=== PATIENT | male | born 1945 | race Caucasian/White ===

== ENCOUNTER 2019-12-12 14:15 | Outpatient (CLI) | payer OTHER, SELFPAY ==
--- NOTE | ~2019-12-12 | XR_ITS ---
XR chest 2V DATE: 12/12/2019 14:47 INDICATION: Abnormal weight loss TECHNIQUE: PA and lateral views COMPARISON: 03/23/2013 PA and lateral chest FINDINGS: Normal heart size. Mild aortic unfolding. No hilar or mediastinal enlargement. Mild bilateral apical capping. No pulmonary infiltrate or consolidation, pleural effusion or pulmonar y vascular congestion or pneumothorax. Diffuse idiopathic skeletal hyperostosis of the thoracic spine. IMPRESSION: No active cardiopulmonary disease Reviewed, dictated and finalized at location A.
== END 2019-12-12 14:16 | disposition home or self-care (01) ==
PROVIDERS: PCP Internal Medicine; Visit Provider Internal Medicine
DX: R63.4 Abnormal weight loss (principal)
CPT/HCPCS: 71046

== ENCOUNTER → 2020-10-31 01:04 | Outpatient (CLI) | payer OTHER, SELFPAY ==
[2020-10-31 20:53] LABS: SARS-CoV-2 RNA PCR Negative
== END ==
PROVIDERS: PCP Internal Medicine; Visit Provider Internal Medicine Gastroenterology
DX: Z01.812 Encounter for preprocedural laboratory examination (principal); Z20.822 Contact with and (suspected) exposure to COVID-19
CPT/HCPCS: C9803; U0003; U0005

== ENCOUNTER 2020-11-03 02:46 | Day surgery (SDC) | payer OTHER, SELFPAY ==
[2020-10-26 13:51] VITALS: BMI 24.0
[2020-11-03 09:16] VITALS: BP 144/80; PULSE 72; RESP 18; TEMP 36.9; O2SAT 99
[2020-11-03] MEDS: LACTATED RINGERS 1,000 ML 150 ML IV CONT (09:35)
--- NOTE | 2020-11-03 09:52 | WPDANESEPPF ---
Anes - Initial Pre Proc Eval Procedure: Operation Date: 11/03/20 10:15 Proposed Procedures p Screening Colonoscopy - Josesito Quigley MD Date/Time: 11/03/20 09:52 Surgeon: Josesito Quigley MD Pre Op Diagnosis: Hx of colon polyps Patient Data Age: 75 Gender: M Height: 5 ft 11 in Weight: 78 kg Last Vital Signs Temp 98.5 F 11/03/20 09:16 Pulse 72 11/03/20 09:16 Resp 18 11/03/20 09:16 BP 144/80 H 11/03/20 09:16 Pulse Ox 99 11/03/20 09:16 Allergies Allergy/AdvReac Type Severity Reaction Status Date / Time No Known Allergies Allergy Verified 11/03/20 09:15 Home Medications Medication Instructions Recorded Confirmed Type sitagliptin 50 mg tablet 50 mg PO DAILY #30 tablet 01/08/20 10/26/20 Rx sertraline 100 mg tablet 100 mg PO DAILY tablet 02/04/20 10/26/20 History irbesartan 150 mg tablet 150 mg PO DAILY #90 tablet 07/13/20 10/26/20 Rx blood sugar diagnostic #50 ea 08/06/20 09/10/20 Rx blood-glucose meter #1 ea 08/06/20 09/10/20 Rx lancets 30 gauge #100 ea 08/07/20 09/10/20 Rx fluticasone propionate 50 2 spray NASAL DAILY 09/10/20 10/26/20 History mcg/actuation nasal spray,suspension mupirocin 2 % topical ointment 1 applic TOPICAL TID #22 g 09/10/20 10/26/20 Rx sod picosulf 10 mg-magnes 3.5 160 ml PO BID #160 ml 09/24/20 Rx gram-citric 12 gram/160 mL oral solution warfarin 4 mg tablet See Rx Instructions .ROUTE 11/02/20 Rx .COMPLEX #44 tablet Patient hx anesthesia problems: none Family hx anesthesia problems: none PMFSH Past Medical History Medical History Allergies Anxiety Arthritis Depression Diabetes HTN (hypertension) Hx of blood clots Presence of vena cava filter Implanted on 11/23/2011. Surgical History Surgical History H/O decompression of ulnar nerve Family History Family History Sibling Patient's sister is in good health Father Cerebrovascular accident Family history of throat cancer Patient's father is Mother Patient's mother is Acute myocardial infarction Social History Social History Smoking status: Former smoker Smoking end date: 12/15/1965 Alcohol intake: never Living arrangements: with family Gender identity (if verbalized by the patient): Male Spiritual care concerns: No Anes - Eval Final PreProcedure Day of Procedure 11/03/20 09:52 Patient weight: normal Heart: regular rate and rhythm Airway: Mallampati scale class II Neurological: alert and oriented Last oral intake: >/= 8 hours ASA classification: III Emergent: no Anesthetic plan: proceed Anesthesia type and monitoring: general GIVS and standard monitoring Informed Consent: The patient's anesthetic plan and its attendant risks and benefits were discussed with the patient/family/POA. Questions were solicited and answers provided to the satisfaction of the patient/family/POA.
--- NOTE | 2020-11-03 10:04 | PM.HPGS ---
History of Present Illness History of Present Illness Consent: Risks, benefits, and alternatives have been discussed and questions answered. Patient agrees to proceed with procedure. Chief complaint: Hx of colon polyps Narrative: Shimon Patterson is a 75 year old male with colon polyp in 2012 Review of Systems Constitutional: Constitutional: Denies headache(s) and Denies weakness Eyes: Eyes: Denies blurry vision ENT: Reports Normal hearing present, Denies headache(s) and Denies neck pain Cardiovascular: Cardiovascular: Denies chest pain and Denies dyspnea Respiratory: Respiratory: Denies dyspnea Gastrointestinal: Gastrointestinal: Reports no additional gastrointestinal complaints Genitourinary: Genitourinary: Denies dysuria Musculoskeletal: Musculoskeletal: Denies neck pain Integumentary/Breasts: Skin/Breast: Denies dry skin Neurologic: Reports Normal hearing present, Denies headache(s) and Denies weakness Psychiatric: Psychiatric: Denies anxiety Endocrine: Endocrine: Denies change in body appearance Hematologic/Lymphatic: Hematologic/Lymphatic: Denies easy bleeding Allergic/Immunologic: Allergic/Immunologic: Denies urticaria PMFSH Past Medical History Medical History Allergies Anxiety Arthritis Depression Diabetes HTN (hypertension) Hx of blood clots Presence of vena cava filter Implanted on 11/23/2011. Surgical History Surgical History H/O decompression of ulnar nerve Family History Family History Sibling Patient's sister is in good health Father Cerebrovascular accident Family history of throat cancer Patient's father is Mother Patient's mother is Acute myocardial infarction Social History Social History Smoking status: Former smoker Smoking end date: 12/15/1965 Alcohol intake: never Living arrangements: with family Gender identity (if verbalized by the patient): Male Spiritual care concerns: No Meds Home Medications and Allergies Home Medications Medication Instructions Recorded Confirmed Type sitagliptin 50 mg tablet 50 mg PO DAILY #30 tablet 01/08/20 10/26/20 Rx sertraline 100 mg tablet 100 mg PO DAILY tablet 02/04/20 10/26/20 History irbesartan 150 mg tablet 150 mg PO DAILY #90 tablet 07/13/20 10/26/20 Rx blood sugar diagnostic #50 ea 08/06/20 09/10/20 Rx blood-glucose meter #1 ea 08/06/20 09/10/20 Rx lancets 30 gauge #100 ea 08/07/20 09/10/20 Rx fluticasone propionate 50 2 spray NASAL DAILY 09/10/20 10/26/20 History mcg/actuation nasal spray,suspension mupirocin 2 % topical ointment 1 applic TOPICAL TID #22 g 09/10/20 10/26/20 Rx sod picosulf 10 mg-magnes 3.5 160 ml PO BID #160 ml 09/24/20 Rx gram-citric 12 gram/160 mL oral solution warfarin 4 mg tablet See Rx Instructions .ROUTE 11/02/20 Rx .COMPLEX #44 tablet Allergies Allergy/AdvReac Type Severity Reaction Status Date / Time No Known Allergies Allergy Verified 11/03/20 09:15 Vital Signs Vital Signs - 24 hr 11/03/20 09:16 Temperature 98.5 F Pulse Rate 72 Respiratory Rate 18 Blood Pressure 144/80 H Pulse Oximetry 99 Exam Const: General: comfortable and no acute distress HENMT: General nose exam: Normal nares present Eyes: General: appearance normal, both eyes and all related structures Neck: Neck: no JVD Resp: Auscultation: clear to auscultation bilaterally Cardio: Rate: regular rate Rhythm: regular rhythm GI: Inspection: non-distended GI Palp: Yes Soft to palpation Skin: General skin exam: normal color Neuro: General: gait normal Speech: normal speech Extrem: General: normal to inspection Psych: Mental Status: mental status grossly normal Assessment and Plan Assessment
[2020-11-03 10:06] LABS: Glucose Point of Care 89 (65-105)
[2020-11-03 10:26] VITALS: BP 110/58; PULSE 61; RESP 21; O2SAT 100
[2020-11-03 10:36] VITALS: BP 115/59; PULSE 58; RESP 18; O2SAT 100
[2020-11-03 10:46] VITALS: BP 130/64; PULSE 58; RESP 21; O2SAT 100
== END 2020-11-03 10:50 | disposition home or self-care (01) ==
PROVIDERS: PCP Internal Medicine; Visit Provider Internal Medicine Gastroenterology
PROC: 0DJD8ZZ Inspection of Lower Intestinal Tract, Via Natural or Artificial Opening Endoscopic (ICD-10-PCS; CPT 45378; principal; 2020-11-03 10:15)
DX: Z12.11 Encounter for screening for malignant neoplasm of colon (principal); D12.0 Benign neoplasm of cecum; K64.8 Other hemorrhoids; K57.30 Diverticulosis of large intestine without perforation or abscess without bleeding; I10 Essential (primary) hypertension; E11.9 Type 2 diabetes mellitus without complications; M19.90 Unspecified osteoarthritis, unspecified site; F41.9 Anxiety disorder, unspecified; F32.9 Major depressive disorder, single episode, unspecified; Z86.718 Personal history of other venous thrombosis and embolism; Z86.010 Personal history of colon polyps; Z79.01 Long term (current) use of anticoagulants
CPT/HCPCS: 45385; 82948; 88305; C9803; J2704; J7120; U0003; U0005

== ENCOUNTER 2020-11-20 09:50 | Observation (INO) | payer OTHER, SELFPAY ==
[2020-11-20] VITALS (37 sets, daily range): BP systolic 145–171; BP diastolic 70–105; PULSE 51–82; RESP 9–25; TEMP 36.1–36.6; O2SAT 96–100; BMI 22.6
--- NOTE | ~2020-11-20 | XR_ITS ---
XR chest 2V DATE: 11/20/2020 10:46 INDICATION: Chest pain TECHNIQUE: AP and lateral views COMPARISON: 12/12/2019 2 view chest FINDINGS: Heart size is within normal limits. No hilar or mediastinal enlargement. No pulmonary infil trate or consolidation, pleural effusion or pulmonary vascular congestion or pneumothorax. Degenerative spurring of the thoracic spine. Osteopenia. IMPRESSION: No active cardiopulmonary disease Reviewed, dictated and finalized at location A.
--- NOTE | ~2020-11-20 | CT_ITS ---
EXAMINATION: CTA chest PE protocol DATE: 11/20/2020 12:33 INDICATION: Shortness of breath. Chest pain. TECHNIQUE: Computed tomography angiography (CTA) of the chest was performed with 100 mL Omnipaque-350 intravenous contrast timed to evaluate the pulmonary arteries. Coronal maximum intensity projection 3D-reconstructions were created by the technologist. Automated exposure control and iterative reconst ruction technique were employed. The dose-length product was 333.99 mGy-cm. COMPARISON: None. FINDINGS: There is mild scarring at the lung apices. There is mild atelectasis bilaterally. There are subpleural bands in the lower lobes. There is a 5 mm nodule in right upper lobe. There is a 4 mm nod ule in left upper lobe. There is a 14 mm groundglass opacity in left upper lobe. These findings are l ikely benign. A calcified left lung nodule and calcified left hilar lymph nodes are consistent with o ld granulomatous disease. No pleural effusion. There is no pulmonary embolus. There is ectasia of asc ending aorta measuring 4.1 cm. There are bridging endplate osteophytes at multiple levels in the spin e, consistent with diffuse idiopathic skeletal hyperostosis (DISH). IMPRESSION: 1. No pulmonary embolus. Reviewed, dictated and finalized at location B. IMPRESSION: 1. No pulmonary embolus.
--- NOTE | 2020-11-20 10:04 | ECG_ITS ---
Measurements Intervals [place] Rate: 65 P: 79 MD: 181 QRS: -31 QRSD: 94 T: 60 QT: 409 QTc: 427 Interpretive Statements SINUS RHYTHM WITH SINUS ARRHYTHMIA LEFT AXIS DEVIATION BASELINE WANDER- V3 BORDERLINE ECG Electronically Signed On 11-20-2020 17:13:38 CDT by Shamir Meza D.O.
--- NOTE | 2020-11-20 10:14 | PC.NURSE ---
Called Lab and spoke with Marilu. Added on a PTINRPTT At 1014
[2020-11-20 10:15] LABS: Basophils Percent Auto 0.2 % (0.2-1.2); Eosinophils Absolute Auto 0.1 K/mm3 (0-0.3); Eosinophils Percent Auto 0.7 % (0-4.4); Hematocrit 40.8 % (42.0-52.0); Hemoglobin 13.5 g/dL (14.0-18.0); Immature Granulocyte Absolute 0.02 K/mm3 (0.00-0.031); Immature Granulocyte Percent A 0.2 % (0-0.5); Lymphocytes Absolute Auto 3.49 K/mm3 (0.9-3.2); Lymphocytes Percent Auto 36.9 % (18.3-44.2); Mean Corpuscular HGB Conc 33.1 g/dl (32-36); Mean Corpuscular Hemoglobin 30.2 pg (26-34); Mean Corpuscular Volume 91.3 fl (80-100); Mean Platelet Volume 9.5 fl (7.4-10.4); Monocytes Absolute Auto 0.5 K/mm3 (0.1-0.6); Monocytes Percent Auto 5.6 % (2.6-8.5); Neutrophils Absolute Auto 5.3 K/mm3 (1.3-6.7); Neutrophils Percent Auto 56.4 % (45.5-73.1); Platelet Count Result 199 k/mm3 (150-375); Red Blood Count 4.47 M/mm3 (4.6-6.20); Red Cell Distribution Width 13.5 % (11.5-14.5); White Blood Count 9.5 K/mm3 (4.5-10.0)
[2020-11-20 10:24] LABS: Alanine Aminotransferase 15 U/L (4-50); Albumin Level 4.1 g/dL (3.5-5.1); Alkaline Phosphatase 76 U/L (38-126); Anion Gap 5 mmol/L (8-16); Aspartate Amino Transferase 30 U/L (17-59); Bilirubin,Total 0.8 mg/dL (0.2-1.3); Blood Urea Nitrogen 17 mg/dL (9-20); Calcium 9.4 mg/dL (8.4-10.2); Carbon Dioxide 27 mmol/L (22-30); Chloride 106 mmol/L (98-107); Estimated CRCL calculation 64 ml/min; Estimated Glomerular Filt Rate > 60; Glucose 124 mg/dL (75-110); Potassium 4.2 mmol/L (3.4-5.0); Prothrombin Time 23.3 Seconds (11.1-14.7); Sodium 138 mmol/L (137-145)
[2020-11-20 10:25] LABS: Partial Thromboplastin Time 38.8 SECONDS (22.3-36.8)
[2020-11-20 10:36] LABS: Troponin I < 0.012 ng/mL (0.000-0.034)
--- NOTE | 2020-11-20 10:45 | ED.CHESTPAIN ---
HPI - Chest Pain General Chief Complaint: Chest Pain Stated Complaint: chest pain Time Seen by Provider: 11/20/20 10:03 Source: patient Mode of arrival: ambulatory Limitations: no limitations History of Present Illness HPI narrative: Patient is a 75 year old male who presents with complaints of chest pain and shortness of breath. He reports sudden onset of chest pain starting last pm. He reports pain of 8/10. He reports pain is a constant pressure. He reports onset of shortness of breath with chest pain. Patient has a history of IVC filter placed after a history of PE. He reports taking warfarin daily. Patient's reports that patient has recently been noncompliant with all medications. Patient reports he does not see medical administrative and all medications are refilled by his PCP, Dr. Herman. Patient is a poor historian and appears uncomfortable at this time. MD complaint: chest pain Pertinent past history: other (IVC filter and PE) Related Data Home Medications Medication Instructions Recorded Confirmed sertraline 100 mg tablet 100 mg PO DAILY tablet 02/04/20 10/26/20 fluticasone propionate 50 2 spray NASAL DAILY 09/10/20 10/26/20 mcg/actuation nasal spray,suspension Allergies Allergy/AdvReac Type Severity Reaction Status Date / Time No Known Allergies Allergy Verified 11/03/20 09:15 Review of Systems Review of Systems: Narrative: CONSTITUTIONAL: Denies fever, chills, or sweats. EYES: Denies visual changes, redness, or discharge. ENT: Denies rhinorrhea, congestion, sore throat, or otalgia. CARDIOVASCULAR: Reports chest pain, denies palpitations or edema. RESPIRATORY: Reports dyspnea. GASTROINTESTINAL: Denies abdominal pain, nausea, vomiting, or diarrhea. GENITOURINARY: Denies dysuria or hematuria. SKIN: Denies rash or itching. MUSCULOSKELETAL: Denies back pain, joint pain, or myalgia. NEUROLOGIC: Denies headache, numbness, dizziness, or weakness. PSYCHIATRIC: Denies anxiety or depression. [facility]LY [facility] Past Medical History Medical History Allergies Anxiety Arthritis Depression Diabetes HTN (hypertension) Hx of blood clots Presence of vena cava filter Implanted on 11/23/2011. Surgical History Surgical History H/O decompression of ulnar nerve Family History Family History Sibling Patient's sister is in good health Father Cerebrovascular accident Family history of throat cancer Patient's father is Mother Patient's mother is Acute myocardial infarction Social History Social History Smoking status: Former smoker Smoking end date: 12/15/1965 Alcohol intake: never Gender identity (if verbalized by the patient): Male Spiritual care concerns: No Exam Narrative: Exam Narrative: GENERAL: Well-appearing, well-nourished, and in no acute distress. HEAD: Normocephalic, atraumatic. EYES: EOMI. No redness or drainage. Conjunctiva are normal. ENT: Mucous membranes pink and moist. Throat normal. Uvula midline. NECK: AROM. Supple. No lymphadenopathy. CHEST: No respiratory distress. Clear to auscultation. HEART: Regular rate and rhythm. No murmur appreciated. Normal peripheral pulses. GI: Soft, nontender without rebound, or guarding. No distention. Bowel sounds normal in all quadrants. MUSCULOSKELETAL: No bony tenderness. EXTREMITIES: Normal range of motion. No edema. SKIN: Warm, dry, no rash. NEURO: No focal deficits. Alert and oriented x3. Gait steady. PSYCH: Normal affect. No signs of depression or anxiety. Course Course Emergency Course: Spoke with Merline Brooks. Patient to be admitted at this time for further evaluation of chest pain. Patient agrees with plan of care. Dr. Cid aware of admission. Vital Signs Vital signs
[2020-11-20 12:18] LABS: Add Urine Microscopic? NO; Appearance Urine Clear (Clear); Bilirubin Urine Negative (Negative); Blood Urine Negative (Negative); Color Urine Yellow (Yellow); Glucose Urine UA Negative (Negative); Ketones Urine Negative (Negative); Leukocyte Esterase Ur Negative LEU/UL (Negative); Nitrate Urine Negative (Negative); Protein Urine Negative (Negative); Specific Grav Ur 1.011 (1.001-1.035); Urobilinogen Urine Negative mg/dL (<2.0)
[2020-11-20 13:46] LABS: Troponin I < 0.012 ng/mL (0.000-0.034)
[2020-11-20 16:50] LABS: Troponin I < 0.012 ng/mL (0.000-0.034)
--- NOTE | 2020-11-20 17:30 | PM.IMHP ---
H&P: HPI History of Present Illness Date/Time: 11/20/20 17:30 Chief Complaint: Chest pain. 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 He slept poorly last night due to intermittent midsternal chest heaviness. There were periods of time where he was able to drift off to sleep however he was wakened to the discomfort quite frequently. He is also feeling a bit short of breath as well. He has also been feeling a bit nauseated for the past day and half or so and he has not had a good appetite due to such. He will occasionally get heartburn but has not noticed it being any worse recently and in fact he rarely has symptoms of such. He was still having intermittent chest pain and some shortness of breath this morning and thus he came in for evaluation. Initial EKG showed no acute ST segment changes and his troponins have thus far been negative. Chest CTA did not demonstrate any evidence of pulmonary embolism or other significant findings. He has no history of peptic ulcers. No orthopnea, PND, or lower extremity edema. He has not had any episodes of emesis. No sweats. Review of Systems Review of Systems: Narrative: Twelve systems were reviewed with pertinent positives and negatives as per HPI. No fever, chills, or sweats. He has noticed some hair loss but not in significant quantities. He has lost 30 to 40 pounds over the last 2 to 3 years unintentionally. His voice is hoarse and he has had direct visualization of his vocal cords by an ENT for evaluation of such and was told that his cords maybe mildly edematous but no lesions were noted. He has no known history of malignancy. He has not noticed blood in his stool. Occasional abdominal bloating but nothing significant. He does not take anything daily for heartburn as he only gets that rarely. No dysphagia or concerns for aspiration. He denies exertional chest pain and pleuritic pain. No cough. He is fully vaccinated for COVID-19. No recent illness or sick contacts. He does have BPH and occasional issues with urinary incontinence as well as fecal incontinence. This is been ongoing for quite some time and is not new. He has neuropathy from his diabetes. Diabetes is well controlled. No blurry vision, polydipsia, or polyuria. No back pain or history of back injury. Denies saddle anesthesia. Except as documented, all other systems were reviewed and are negative. [facility] Past Medical History Medical History (Updated 11/20/20 @ 21:58 by Cecilia Aguilar PA-C) Allergies Anxiety Arthritis Benign prostatic hyperplasia Chronic anticoagulation Depression Remote history of suicide attempt. Previously treated with ECT. Gastroesophageal reflux disease without esophagitis History of colon polyps History of deep vein thrombosis (DVT) of lower extremity History of pulmonary embolism Hypertension Type 2 diabetes mellitus with diabetic polyneuropathy, without long-term current use of insulin Surgical History Surgical History (Updated 11/20/20 @ 21:49 by Cecilia Aguilar PA-C) History of decompression of ulnar nerve Presence of vena cava filter Implanted on 11/23/2011. Family History Family History Sibling Patient's sister is in good health Father Cerebrovascular accident Family history of throat cancer Patient's father is Mother Patient's mother is Acute myocardial infarction Social History Social History (Updated 11/20/20 @ 21:52 by Cecilia Aguilar PA-C) Social History: Code status: Full code. He designates his as his surrogate decision maker. Smoking status: Former smoker Smoking end tigre
--- NOTE | 2020-11-20 18:50 | ADMGEN ---
This patient, Shimon Patterson, was admitted to IMU Room 203-01 at 1850. Patient/family oriented to hospital policies and general routines including ID bracelet, bed and alarms, visiting hours, pain management, procedures, bathroom and other care routines, personal items, smoking policy, room service/diet, and visiting hours. Information on how to activate the Rapid Response Team has been discussed. Patient/Family are encouraged to report perceived risks to care and to ask questions if they do not understand what they are told or what they should do.
[2020-11-20 20:41] LABS: Glucose Point of Care 154 (65-105)
[2020-11-20] MEDS: SERTRALINE HCL 50 MG TABLET 100 MG PO (22:46)
[2020-11-21] VITALS (9 sets, daily range): BP systolic 137–151; BP diastolic 76–78; PULSE 55–79; RESP 16–18; TEMP 36–36.6; O2SAT 97–100
[2020-11-21 02:43] LABS: INR 2.3; Prothrombin Time 25.7 Seconds (11.1-14.7)
[2020-11-21 05:54] LABS: Hemoglobin 12.5 g/dL (14.0-18.0); Mean Corpuscular HGB Conc 33.8 g/dl (32-36); Mean Corpuscular Hemoglobin 30.1 pg (26-34); Mean Corpuscular Volume 89.2 fl (80-100); Mean Platelet Volume 9.8 fl (7.4-10.4); Platelet Count Result 191 k/mm3 (150-375); Red Blood Count 4.15 M/mm3 (4.6-6.20); Red Cell Distribution Width 13.3 % (11.5-14.5); White Blood Count 7.5 K/mm3 (4.5-10.0)
[2020-11-21 06:06] LABS: Alanine Aminotransferase 12 U/L (4-50); Albumin Level 3.6 g/dL (3.5-5.1); Alkaline Phosphatase 67 U/L (38-126); Anion Gap 6 mmol/L (8-16); Aspartate Amino Transferase 24 U/L (17-59); Bilirubin,Total 0.7 mg/dL (0.2-1.3); Blood Urea Nitrogen 15 mg/dL (9-20); Calcium 9.3 mg/dL (8.4-10.2); Carbon Dioxide 27 mmol/L (22-30); Chloride 106 mmol/L (98-107); Estimated CRCL calculation 63 ml/min; Estimated Glomerular Filt Rate > 60; Glucose 87 mg/dL (75-110); Lipase 32 U/L (23-300); Potassium 3.7 mmol/L (3.4-5.0); Sodium 139 mmol/L (137-145)
[2020-11-21 06:32] LABS: Hemoglobin A1C 5.9 % (<5.7)
[2020-11-21 07:35] LABS: Free T4 Free Thyroxine Reflex 1.06 ng/dL (0.78-2.19)
[2020-11-21 08:37] LABS: Total Triiodothyronine (T3) 0.99 NG/ML (0.97-1.69)
[2020-11-21 09:01] LABS: Glucose Point of Care 88 (65-105)
[2020-11-21] MEDS: IRBESARTAN 150 MG TABLET PO (09:48)
[2020-11-21] MEDS: PANTOPRAZOLE 40 MG TABLET PO (09:48)
[2020-11-21] MEDS: SERTRALINE HCL 50 MG TABLET PO (09:48)
--- NOTE | 2020-11-21 10:51 | PM.DS ---
DS: Admitting Diagnosis Admitting Diagnosis Admitting Diagnosis: Chest pain DS: Discharge Diagnosis Discharge Diagnosis (1) Chest pain: Code(s): R07.9 - Chest pain, unspecified Status: Acute (2) Type 2 diabetes mellitus with diabetic polyneuropathy, without long-term current use of insulin: Code(s): E11.42 - Type 2 diabetes mellitus with diabetic polyneuropathy Status: Acute (3) Gastroesophageal reflux disease without esophagitis: Code(s): K21.9 - Gastro-esophageal reflux disease without esophagitis Status: Acute (4) History of deep vein thrombosis (DVT) of lower extremity: Code(s): Z86.718 - Personal history of other venous thrombosis and embolism Status: Acute (5) Hypertension: Code(s): I10 - Essential (primary) hypertension Status: Acute (6) Presence of vena cava filter: Code(s): Z95.828 - Presence of other vascular implants and grafts Status: Acute (7) Chronic anticoagulation: Code(s): Z79.01 - long term (current) use of anticoagulants Status: Acute (8) Rash: Code(s): R21 - Rash and other nonspecific skin eruption Status: Acute (9) Depression: Code(s): F32.9 - Major depressive disorder, single episode, unspecified Status: Acute (10) HTN, goal below 140/80: Code(s): I10 - Essential (primary) hypertension Status: Acute (11) Mild anemia: Code(s): D64.9 - Anemia, unspecified Status: Acute (12) Rosacea: Code(s): L71.9 - Rosacea, unspecified Status: Acute DS: Summary Hospital Course Reason for hospitalization: Chest pain Hospital Course: Admitted with chest pressure precordial moderate. Worse while lying down. Correlates at with taking sertraline at night. Although he has been taking it for a long time and does not happen with every dose. States he takes medication as directed but significant other contradicts that. His telemetry was unremarkable overnight. EKG showed no ischemic changes. Troponin I was undetectable Leslie low x3. CTA chest was negative for pulmonary emboli masses pericardial effusion or infiltrates. Time Spent with Patient Time attestation: Total time spent providing and/or coordinating discharge services: 35 minutes Exam Narrative: Exam Narrative: HEENT: EOMI, PERRL, sclerae nonicteric, pharyngeal mucosa pink and intact, voice hoarse NECK: No JVD, adenopathy, or thyromegaly CHEST: Clear to auscultation. Normal effort. HEART: NL S1/S2, regular, no murmur ABDOMEN: BS+, soft, nontender, no mass, no bruits EXTREMITIES: No cyanosis, edema, or clubbing NEUROLOGIC: CN intact and symmetric to inspection. MUSCULOSKELETAL: Tone and strength symmetric. PSYCH: Alert. Oriented to person, place, and time. SKIN: Scattered erythematous papules and pustules in [place] and scalp DS: Data Data Completed and Pending Labs on day of discharge: Labs from last 24 hours 11/21/20 11/21/20 11/21/20 08:53 04:17 04:16 WBC RBC Hgb Hct MCV MCH MCHC RDW Plt Count MPV PT INR Sodium Potassium Chloride Carbon Dioxide Anion Gap BUN Creatinine Estim Creat Clear Calc Estimated GFR Glucose POC Capillary Glucose 88 Hemoglobin A1c 5.9 H Calcium Magnesium Total Bilirubin AST ALT Alkaline Phosphatase Troponin I Total Protein Albumin Lipase TSH (Reflex) Free T4 Total T3 0.99 Urine Color Urine Appearance Urine pH Ur Specific [place] Urine Protein Urine Glucose (UA) Urine Ketones Ur Blood (Man) Urine Nitrate Urine Bilirubin Urine Urobilinogen Leukocyte Esterase Rfl 11/21/20 11/21/20 11/21/20 04:16 04:16 04:16 WBC RBC Hgb Hct MCV MCH MCHC RDW Plt Count MPV PT INR Sodium 139 Potassium 3.7 Chloride 106 Carbon Dioxide 27 Anion Gap 6 L BU
[2020-11-21 13:02] LABS: Glucose Point of Care 120 (65-105)
== END 2020-11-21 13:30 | disposition home or self-care (01) ==
LOC: ANHED 15:44 → ANHIMU 18:45
PROVIDERS: Physician Assistant; Admitting Provider Family Medicine; Emergency Provider Nurse Practitioner; PCP Internal Medicine; Visit Provider Internal Medicine
DX: R07.9 Chest pain, unspecified (principal); R06.02 Shortness of breath; E11.42 Type 2 diabetes mellitus with diabetic polyneuropathy; R63.4 Abnormal weight loss; I10 Essential (primary) hypertension; F41.8 Other specified anxiety disorders; N40.0 Benign prostatic hyperplasia without lower urinary tract symptoms; K21.9 Gastro-esophageal reflux disease without esophagitis; D64.9 Anemia, unspecified; R21 Rash and other nonspecific skin eruption; L71.9 Rosacea, unspecified; Z91.14 Patient's other noncompliance with medication regimen; Z87.891 Personal history of nicotine dependence; Z79.01 Long term (current) use of anticoagulants; Z79.84 Long term (current) use of oral hypoglycemic drugs; Z86.718 Personal history of other venous thrombosis and embolism; Z86.711 Personal history of pulmonary embolism; Z95.828 Presence of other vascular implants and grafts
CPT/HCPCS: 36415; 71046; 71275; 80053; 81003; 82948; 83036; 83690; 83735; 84439; 84443; 84480; 84484; 85025; 85027; 85610; 85730; 93005; 99285; A9270; G0378; Q9967

== ENCOUNTER 2024-05-24 17:03 | Emergency (ER) | payer OTHER, SELFPAY ==
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
[2024-05-24 19:37] LABS: Basophils Percent Auto 0.4 % (0.2-1.2); Eosinophils Absolute Auto 0.1 K/mm3 (0-0.3); Eosinophils Percent Auto 0.5 % (0-4.4); Hematocrit 37.5 % (42.0-52.0); Hemoglobin 12.4 g/dL (14.0-18.0); Immature Granulocyte Absolute 0.01 K/mm3 (0.00-0.031); Immature Granulocyte Percent A 0.1 % (0-0.5); Lymphocytes Absolute Auto 7.01 K/mm3 (0.9-3.2); Lymphocytes Percent Auto 70.4 % (18.3-44.2); Mean Corpuscular HGB Conc 33.1 g/dl (32-36); Mean Corpuscular Hemoglobin 33.7 pg (26-34); Mean Corpuscular Volume 101.9 fl (80-100); Monocytes Absolute Auto 0.3 K/mm3 (0.1-0.6); Neutrophils Absolute Auto 2.6 K/mm3 (1.3-6.7); Neutrophils Percent Auto 25.6 % (45.5-73.1); Platelet Count Result 158 k/mm3 (150-375); Red Blood Count 3.68 M/mm3 (4.6-6.20); Red Cell Distribution Width 14.2 % (11.5-14.5)
[2024-05-24 19:42] LABS: Alanine Aminotransferase 16 U/L (6-50); Albumin Level 4.3 g/dL (3.5-5.1); Alkaline Phosphatase 77 U/L (38-126); Anion Gap 10 mmol/L (4-12); Aspartate Amino Transferase 27 U/L (17-59); Bilirubin,Total 0.9 mg/dL (0.2-1.3); Blood Urea Nitrogen 20 mg/dL (9-20); Calcium 9.4 mg/dL (8.4-10.2); Carbon Dioxide 26 mmol/L (22-30); Chloride 106 mmol/L (98-107); Estimated CRCL calculation 62 ml/min; Estimated Glomerular Filt Rate > 60; Glucose 133 mg/dL (65-110); Potassium 4.5 mmol/L (3.4-5.0); Sodium 142 mmol/L (137-145)
[2024-05-24 20:13] LABS: Influenza A QL RT-PCR Negative (Negative); Influenza B QL RT-PCR Negative (Negative); SARS-CoV-2 RNA PCR Negative (Negative)
[2024-05-24 20:38] LABS: Add Urine Microscopic? YES; Appearance Urine Clear (Clear); Bacteria Urine None Seen /hpf; Bilirubin Urine Negative (Negative); Blood Urine Negative (Negative); Color Urine Yellow (Yellow); Glucose Urine UA Negative (Negative); Ketones Urine 1+ mg/dL (Negative); Leukocyte Esterase Ur Negative LEU/UL (Negative); Nitrate Urine Negative (Negative); Protein Urine Trace mg/dL (Negative); RBC Urine 0-2 /hpf (0-2); Specific Grav Ur 1.029 (1.001-1.035); Squamous Epithelial Cell Urine None Seen /hpf (Few); Urobilinogen Urine 0.2 mg/dL (<2.0); WBC Urine 0-5 /hpf (0-3)
[2024-05-24 21:18] LABS: Amphetamine Screen Urine Negative (Negative); Barbiturate Screen Urine Negative (Negative); Benzodiazepines Screen Urine Negative (Negative); Cannabinoid Screen Urine Negative (Negative); Cocaine Screen Urine Negative (Negative); Methadone Screen Urine Negative (Negative); Opiate Screen Urine Negative (Negative); Phencyclidine Screen Urine Negative (Negative)
[2024-05-24 21:39] LABS: Acetaminophen < 10 ug/mL (10-30); Ethanol < 10 mg/dL (<10); Salicylate < 1.0 mg/dL (2-20)
--- NOTE | 2024-05-24 22:52 | PC.NURSE ---
report taken from Agnieszka VOGT. All questions answered. Pt to go home with and safety plan, and to follow up outpatient with Crisis for counseling
--- NOTE | 2024-05-25 01:18 | PC.NURSE ---
Spoke with Nilda at [facility] intake. Patient has been accepted but they do not have adequate staff to take patient until 1400 on05/25/24. They would like us to call back at that time
--- NOTE | 2024-05-25 02:54 | PC.NURSE ---
given recliner for comfort, pt and deny all other needs at this time
[2024-05-25 04:24] VITALS: BP 136/75; PULSE 68; RESP 18; TEMP 37; O2SAT 100
[2024-05-25 08:05] VITALS: BP 130/74; PULSE 65; RESP 18; TEMP 36.9; O2SAT 99
--- NOTE | 2024-05-25 08:39 | PC.NURSE ---
Safety meal tray ordered for pt and spouse.
--- NOTE | 2024-05-25 10:20 | PC.NURSE ---
[id number]-Iris from [facility] called to speak with pt's . Psychiatrist is requesting a voluntary admission from pt's . is agreeable to filling out the voluntary paperwork. 0960-Voluntary paperwork faxed to [facility].
--- NOTE | 2024-05-25 12:24 | PC.NURSE ---
1206-Called [facility] for update, spoke with Shewit and she stated the voluntary form needs to be redone. 1225-Pt's filled out the voluntary admission form, faxed to [facility]
--- NOTE | 2024-05-25 14:28 | PC.NURSE ---
1422-Spoke with Antonia from [facility], states they are waiting to hear back from the provider and will call back.
--- NOTE | 2024-05-25 15:30 | PC.NURSE ---
1525-Update from Spring at [facility], requesting a different voluntary admission form. [facility] will be faxing the requested form.
--- NOTE | 2024-05-25 16:36 | PC.NURSE ---
1600-Correct voluntary admission form faxed to [facility]
--- NOTE | 2024-05-25 19:14 | PC.NURSE ---
Spring with [facility] called stating that pt has been accepted and someone would reach out shorty.
--- NOTE | 2024-05-25 20:36 | PC.NURSE ---
Nicole with [facility] transfer center called stating pt has received a bed assignment at [facility] Rm 108 bed 2. Number to call report [phone]
[2024-05-25 21:20] VITALS: BP 122/66; PULSE 63; RESP 18; TEMP 36.9; O2SAT 100
[2024-05-25 21:39] LABS: Glucose Point of Care 130 mg/dl (65-105)
--- NOTE | 2024-05-25 22:03 | PC.NURSE ---
Nurse report called to TORIE Phan @ [facility] @ [phone]
[2024-05-25 22:06] VITALS: BP 122/66; PULSE 63; RESP 18; TEMP 36.9; O2SAT 100
--- NOTE | 2024-05-25 22:31 | PC.NURSE ---
Attempted to call pts (Fl[place]) to give update. No answer.
== END 2024-05-25 22:32 ==
PROVIDERS: Emergency Medicine; Emergency Provider Emergency Medicine; PCP Nurse Practitioner Family
DX: G31.83 Neurocognitive disorder with Lewy bodies (principal); F02.811 Dementia in other diseases classified elsewhere, unspecified severity, with agitation; T50.916A Underdosing of multiple unspecified drugs, medicaments and biological substances, initial encounter; Z91.128 Patient's intentional underdosing of medication regimen for other reason; Z11.52 Encounter for screening for COVID-19; I10 Essential (primary) hypertension; E11.42 Type 2 diabetes mellitus with diabetic polyneuropathy; N40.0 Benign prostatic hyperplasia without lower urinary tract symptoms; K21.9 Gastro-esophageal reflux disease without esophagitis; M19.90 Unspecified osteoarthritis, unspecified site; F41.9 Anxiety disorder, unspecified; F32.A Depression, unspecified; Z86.711 Personal history of pulmonary embolism; Z86.718 Personal history of other venous thrombosis and embolism; Z86.0100 Personal history of colon polyps, unspecified; Z87.891 Personal history of nicotine dependence; Z79.01 Long term (current) use of anticoagulants; Z79.899 Other long term (current) drug therapy; Z79.84 Long term (current) use of oral hypoglycemic drugs
CPT/HCPCS: 36415; 80053; 80143; 80179; 80307; 81001; 82077; 82948; 84443; 85025; 87636; 99285

== ENCOUNTER 2025-03-31 11:25 | Observation (INO) | payer OTHER, SELFPAY ==
--- OUTSIDE RECORDS SUMMARY | 2024-07-16 08:00 | XMS_ITS ---
Author Organization [facility] [employer] [facility] Address [address] [place] [address] [address] Care Team Providers Care Director Of Kids Name Role Phone Lv Steele MD Primary Care Provider Makenna De Leon [phone] REASON FOR VISIT pt requested appt online Social History Sex Assigned At : Social History Observation Description Sex Assigned At Male Encounters Encounter Location Date Provider Diagnosis [facility] [place] [address] [address] 07/16/2024 Makenna Bhardwaj Plan Of Treatment Next Appt Details Provider Name:Makenna Bhardwaj , 04/22/2025 02:00:00 PM, [facility] [address], [address], [address], Progress Notes * JUANRosa Elena MARY ANNE FDOB:1945 (80 yo M)Acc No.[id number]:07/16/2024 Patient: MARY ANNE CASTRO Provider: CHARITY SIMON :1945 A ge:79 Y S ex:Male Date:07/16/2024 [facility] [facility] Pcp:Lv Steele MD Subjective: * Chief Complaints: * P t requested appt online Billing Information: * Procedure Codes: * Electronic signature of CHARITY Davila on 03/31/2025 at 12:36 PM CDT Sign off status: Pending * Provider: CHARITY SIMON Date: 0 07/16/2024 Generated for Lindsey Hall on: 0 03/31/2025 12:36 PM CDT
--- NOTE | ~2025-03-31 | CT_ITS ---
Shimon Patterson EXAMINATION: CT abdomen pelvis w con COMPARISON: None HISTORY: abd pain/bloating, constipation, hx obstruction TECHNIQUE: Axial images were obtained through the abdomen, pelvis post administration of IV contrast. Oral contrast was also administered. Coronal reconstruction images were obtained from the axial views. CT scan performed using dose optimization techniques including the following automated exposure control; adjustment of mA and/or kV; use of iterative reconstruction technique. Automatic exposure control was used to reduce radiation dose. Permanent radiation dose record is archived to PACS. FINDINGS: CT abdomen: LUNG BASES: The lung bases demonstrate bibasilar areas of atelectasis with calcified granulomas. LIVER: Mild hepatic steatosis. Portal vein patent. No intrahepatic biliary duct dilatation. Subcentimeter right lobe liver vascular lesion 5 x 5 mm. SPLEEN: Unremarkable. KIDNEYS: Right Kidney: Unremarkable. No calculi. No hydronephrosis. Left Kidney: Unremarkable. No calculi. No hydronephrosis ADRENAL GLANDS: Unremarkable. PANCREAS: Moderate pancreatic atrophy. GALLBLADDER/BILIARY: Unremarkable. No biliary dilatation. STOMACH AND ESOPHAGUS: The stomach is decompressed. BOWEL/MESENTERY: Moderate fecal content with dilation of the rectum measuring 8 cm with minimal pericolonic stranding. The remaining large bowel demonstrates moderate fecal content with mild diverticulosis diverticulitis. Appendix normal. ADENOPATHY/RETROPERITONEUM: There are multiple enlarged lymph nodes in the gastrohepatic ligament, peripancreatic space and retroperitoneum the largest in the left retroperitoneum para-aortic space 3.5 x 3 cm. There are enlarged lymph nodes within the mesentery the largest 4 x 6 cm. AORTA/VASCULATURE: Normal caliber aorta. FREE FLUID OR FREE AIR: No free fluid.. CT pelvis: SOLID ORGANS/REPRODUCTIVE: Unremarkable. BLADDER: The bladder is distended. OSSEOUS STRUCTURES: Severe degenerative changes of the acetabular femoral joints bilaterally and the lumbar spine. OVERLYING SOFT TISSUES: Small bilateral fat-containing inguinal hernia. IMPRESSION: 1. Lymphadenopathy detailed above concerning for lymphoma. Tissue sampling recommended. 2. Fecal impaction with mild probable proctitis Reviewed, dictated and finalized at location A. IMPRESSION: 1. Lymphadenopathy detailed above concerning for lymphoma. Tissue sampling nalini mmended. 2. Fecal impaction with mild probable proctitis
--- NOTE | ~2025-03-31 | XR_ITS ---
Examination: XR chest 2V Clinical History: Leukocytosis Comparison: 11/20/2020 Technique: PA and Lateral Findings: Cardiomediastinal silhouette normal size and configuration. Lungs clear. Mediastinal calcification. No acute bony abnormality. IMPRESSION: 1. No acute cardiopulmonary findings. Reviewed, dictated and finalized at location R.
--- NOTE | ~2025-03-31 | US_ITS ---
EXAMINATION: US biopsy lymph node DATE: 04/02/2025 10:23 INDICATION: Intra-abdominal lymphadenopathy and enlarged left axillary lymph node suspicious for lymphoma. TECHNIQUE: The procedure including the risks and benefits was discussed with the patient. Risks discussed included bleeding and infection. The patient understood the risks and agreed to proceed. The skin overlying the left axilla was prepped and draped in usual sterile fashion. Anesthetic was administered with 1% lidocaine subcutaneously. An routine gauge core biopsy needle was advanced under continuous ultrasound observation to the lesion of interest. 5 core biopsy specimens were obtained, 3 placed in RPMI media and 2 in formalin. The needle was removed and the entry site was cleaned and dressed. Post procedure ultrasound demonstrated no hemorrhage. FINDINGS: Ultrasound images demonstrate biopsy needle advanced into a 3.5 x 3.3 x 2.0 cm left axillary lymph node. IMPRESSION: 1. Successful Ultrasound-guided biopsy of an enlarged left axillary lymph node suspicious for lymphoma. Reviewed, dictated and finalized at location A.
[2025-03-31 11:37] VITALS: BP 135/75; PULSE 88; RESP 20; TEMP 37.4; O2SAT 88
--- OUTSIDE RECORDS SUMMARY | 2025-03-31 12:37 | XMS_ITS | Patient Health Record ---
Author Organization [facility] Address [address] [place] [address] Care Team Providers Care Automatic Mounter Name Role Phone Lv Steele MD Primary Care Provider Makenna De Leon Unavailable [phone] Allergies No Known Allergies Reason For Referral No Information Medications Medication SIG (Take, Route, Frequency, Duration) Notes Start Date End Date Status buPROPion HCl ER (XL) 150 MG Tablet Extended Release 24 Hour 1 tablet in the morning Orally Once a day; Duration: 90 days Active Warfarin Sodium 4 MG Tablet Oral 09/28/2023 Not-Taking buPROPion HCl ER (XL) 150 MG Tablet Extended Release 24 Hour 1 tablet in the morning Orally Once a day; Duration: 90 days Not-Taking Eliquis 5 MG Tablet TAKE 1 TABLET BY MOUTH TWICE A DAY (DISCONTINUE WARFARIN/COUMADIN ) Oral; Duration: 90 Days Active Contour Blood Glucose System w/Device Kit In Vitro 09/28/2023 Active Fluticasone Propionate Diskus 50 MCG/ACT Aerosol Powder Breath Activated Inhalation *Reorder from [employer] for eRx and Interaction Alerts* 09/28/2023 Active Immunizations Vaccine Route Administration Date Status Comme nts Influenza virus vaccine, quadrivalent (IIV4), split virus, 0.25 mL dosage Unknown 05/03/2019 Administered Influenza, high dose seasonal Unknown 05/03/2018 Admini stered Influenza, unspecified formulation Unknown 06/19/2020 A dministered Influenza, unspecified formulation Unknown 05/14/2023 A dministered Chun Covid-19 Vaccine Unknown 09/15/2020 Administere d Social History Tobacco Use: Social History Observation Description Date Details (start date - stop date) Never Smoker NA - NA Sex Assigned At : Social History Observation Description Sex Assigned At Male Social History Miscellaneous: Social Info Question Answer Notes Advance Care Planning Are you your own decision-maker No Do you have Power of Rectifying Operator for Health or Medi olivia? Yes Do you have a power of estate planning attorney for health? Yes Do you have power of estate planning attorney for Medical ? Yes If yes, then please bring the POA paperwork so that we can upload it. No Household: Social Info Question Answer Notes Household Marital status: Number of adults in household: 2 Any household tobacco use? No Tobacco Use: Social Info Question Answer Notes Tobacco Control (Standard) Tobacco use: Nonsmoker Additional Findings: Tobacco non-user Current no nsmoker Additional Details Category Social Info Options Details Migrated Social History Migrated Social History Alcohol Intake: None 05/12/2020,Tobacco Years: Never smoker 05/12/2020 Section Notes: Activities of Daily LivingAr e you able to care for yourself?: YesAre you blind or do you have difficulty seeing?: YesAre you deaf or do you have serious difficulty hearing? : YesDo you have difficulty concentrating, remembering or making decisions?: NoDo you have difficulty walking or climbing stairs?: NoDo you have difficulty dressing or bathing?: NoDo you have difficulty doing errands alone?: NoAre you able to walk?: Yes: walks without restrictionsDo you have transportation difficulties?: YesOtherEducation: 4 Year CollegeFamily history of heart disease?: Yes (Notes: mother)High blood pressure: YesHigh Cholesterol: YesPast steroid/HgH use?: NoGender Identity and LGBTQ IdentityGender identity: Identifies as MaleAssigned sex at : MaleSexual orientation: Straight or heterosexual, Substance UseDo you or have you ever smoked tobacco?: Never smoker (Notes: cigars)How much tobacco do you smoke?: NoneDo you or have you ever used any other forms of tobacco or nicotine?: NoDo you or have you ever used e-cigarettes or vape?: Never used electronic cigarettesDo you or have you ever used smokeless tobacco?: Never used smokeless tobaccoHow much tobacco do you chew?: noneWhat was the date of your most recent tobacco screening?: 09/28/2023Has tobacco cessation counseling been provided?: NoWhat is your level of alcohol consumption?: None (Notes: former excessive use stopped few years ago)How many years have you consumed alcohol?: 45Do you use any illicit or recreational drugs?: NoWhich illicit or recreational drugs have you used?: NoneHave you used IV drugs?: NoWhat is your level of caffeine consumption?: NoneEducation and OccupationWhat is the highest grade or level of school you have completed or the highest degree you have received?: Master's degree (e.g., MA, MS, Suze, MEd, [employer], [employer])Are you currently employed?: No (Notes: retired)Who is your employer?: RetiredMarriage and SexualityWhat is your relationship status?: MarriedAre you sexually active?: NoDo you use protection during sex?: NoHow many children do you have?: 2Home and EnvironmentAre you a caregiver?: NoDo you have any siblings?: 3Do you have any pets?: NoDo you have smoke and carbon monoxide detectors in your home?: YesAre there any smokers in your house?: NoAre there any guns present in your home?: NoDiet and ExerciseWhat type of diet are you following?: DiabeticLifestyleDo you feel stressed (tense, restless, nervous, or anxious, or unable to sleep at night)?: Only a littleDo you use your seat belt or car seat routinely?: Yes Problems Problem Type SNOMED Code ICD Code Onset Dates Problem Status W/U Status Risk Notes Problem Moderate recurrent major depression (53118747) Major depressive disorder, recurrent, moderate (F33.1) 4 Active confirmed Problem Generalized anxiety disorder (44842639) Generalized anxiety disorder (F41.1) 4 Active confirmed Problem Insomnia disorder related to another mental disorder (96182089) Insomnia due to other mental disorder (F51.05) 4 Active confirmed Problem Amnesia (14017303) Other amnesia (R41.3) 4 Active confirmed Problem Mild recurrent major depression (80146703) MDD (major depressive disorder), recurrent episode, mild (F33.0) Active confirmed Vital Signs Heart Rate 86 /min 01/21/2025 Respiratory Rate 16 /min 10/22/2024 Height-cm 180.34 cm 01/21/2025 Blood pressure diastolic 86 mm Hg 01/21/2025 Weight-kg 86.18 kg 01/21/2025 Height 71.00 in 01/21/2025 Blood pressure systolic 150 mm Hg 01/21/2025 Weight 190 lbs 01/21/2025 BMI 26.5 kg/m2 01/21/2025 [facility]ters [facility] [address] [address] [facility] Makenna Therany Generalized anxiety disorder F41.1 ; MDD (major depressive disorder), recurrent episode, mild F33.0 ; Insomnia due to other mental disorder F51.05 and Other amnesia R41.[address] [address] 07/22/2024 Makenna Therany Generalized anxiety disorder F41.1 ; MDD (major depressive disorder), recurrent episode, mild F33.0 ; Insomnia due to other mental disorder F51.05 ; Other amnesia R41.3 and Hypertension, unspecified type 401.[address] [address] 10/22/2024 Makenna Therany Generalized anxiety disorder F41.1 ; MDD (major depressive disorder), recurrent episode, mild F33.0 ; Insomnia due to other mental disorder F51.05 ; Other amnesia R41.3 ; Encounter for screening for depression Z13.31 ; Encounter for screening for cardiovascular disorders Z13.6 and Dietary counseling and surveillance Z71.[address] [address] 01/21/2025 Makenna Therany Generalized anxiety disorder F41.1 ; MDD (major depressive disorder), recurrent episode, mild F33.0 ; Insomnia due to other mental disorder F51.05 ; Other amnesia R41.3 ; Encounter for screening for depression Z13.31 ; Encounter for screening for cardiovascular disorders Z13.6 and Dietary counseling and surveillance Z71.3 [facility] [place] [address] [address] 05/27/2024 Makenna Bhardwaj [address] [address] 04/01/2024 Makenna Bhardwaj Assessments Encounter Date Diagnosis (ICD Code) Assessment Notes Treatment Notes Treatment Clinical Notes Section Notes 10/22/2024 Generalized anxiety disorder (ICD-10 - F41.1) Learning About Generalized Anxiety Disorder material was published, Generalized Anxiety Disorder: Care Instructions material was published, Learning About Anxiety Disorders material was published 1. recurrent major depression - Wellbutrin XL 150 mg daily in am- reported doing better lives at [facility] education on compliance with medications and communication and goals, Educated on all medications, benefits, side effects, risk, and mental health, depression anxiety, and memory disorder, mood d/o, movement d/o, and compliance with medications and appointmentseducation on all medication obtain labs PCP 2. Generalized anxiety disorder Obtain labs PCP stable 3. Memory impairment -discussed care plan memory testing 05/27/21CANS completed and reviewed SLUMS = 19 05/27/21 SLUMS= 21 12/22/22 SLUMS= 25 05/07/24 hx [facility] and plans to attend 3 x week and working on memory and mood, [facility] records in [facility] reviewed 4. Insomnia disorder related to another mental disorder -stable 01/21/2025 Generalized anxiety disorder (ICD-10 - F41.1) Learning About Generalized Anxiety Disorder material was published, Generalized Anxiety Disorder: Care Instructions material was published, Learning About Anxiety Disorders material was published 1. recurrent major depression - Wellbutrin XL 150 mg daily in am- reported doing better lives at [facility] education on compliance with medications and communication and goals, Educated on all medications, benefits, side effects, risk, and mental health, depression anxiety, and memory disorder, mood d/o, movement d/o, and compliance with medications and appointmentseducation on all medication obtain labs PCP 2. Generalized anxiety disorder Obtain labs PCP stable 3. Memory impairment - discuss rx for memory- patient reported does not want rx discussed care plan memory testing 05/27/21CANS completed and reviewed SLUMS = 19 05/27/21 SLUMS= 21 12/22/22 SLUMS= 25 05/07/24 01/21/25 SLUMS = 21 hx [facility] and plans to attend 3 x week and working on memory and mood, [facility] records in [facility] reviewed 4. Insomnia disorder related to another mental disorder -stable 07/22/2024 Generalized anxiety disorder (ICD-10 - F41.1) Learning About Generalized Anxiety Disorder material was published, Generalized Anxiety Disorder: Care Instructions material was published, Learning About Anxiety Disorders material was published 1. recurrent major depression - patient reported off Sertraline 150 mg daily at night- stopped at [facility] 06/02 reported on Wellbutrin XL 150 mg daily in am- reported doing better lives at [facility] obtain hospital records and labs [facility] education on compliance with medications and communication and goals, Educated on all medications, benefits, side effects, risk, and mental health, depression anxiety, and memory disorder, mood d/o, movement d/o, and compliance with medications and appointmentseducation on all medication obtain labs PCP 2. Generalized anxiety disorder Obtain labs PCP stable 3. Memory impairment -discussed care plan memory testing 05/27/21CANS completed and reviewed SLUMS = 19 05/27/21 SLUMS= 21 12/22/22 SLUMS= 25 05/07/24 d/c Namenda 5 mg twice daily, reported stopped at hospital 06/02 hx [facility] and plans to attend 3 x week and working on memory and mood, [facility] records in [facility] reviewed 4. Insomnia disorder related to another mental disorder -stable 05/07/2024 Generalized anxiety disorder (ICD-10 - F41.1) Learning About Generalized Anxiety Disorder material was published, Generalized Anxiety Disorder: Care Instructions material was published, Learning About Anxiety Disorders material was published 1. recurrent major depression - Sertraline 150 mg daily at night education on compliance with medications and communication and goals, Educated on all medications, benefits, side effects, risk, and mental health, depression anxiety, and memory disorder, mood d/o, movement d/o, and compliance with medications and appointmentseducation on all medication obtain labs PCP 2. Generalized anxiety disorder -sertraline Obtain labs PCP stable 3. Memory impairment -discussed care plan memory testing 05/27/21CANS completed and reviewed SLUMS = 19 05/27/21 SLUMS= 21 12/22/22 SLUMS= 25 05/07/24 Namenda 5 mg twice daily, education on medication - Discuss increase Namenda and adding either Aricept or Exelon and patient does not want to change or add additional rx going to [facility] and plans to attend 3 x week and working on memory and mood, [facility] 4. Insomnia disorder related to another mental disorder -stable 05/07/2024 MDD (major depressive disorder), recurrent episode, mild (ICD-10 - F33.0) Learning About Depression Screening material was published, Preventing Depression From Coming Back: Care Instructions material was published, Seasonal Affective Disorder: Care Instructions material was published, Learning About Depression material was published, Learning About How to Get Help During a Mental Health Crisis material was published [facility] Response got Denied on 2024-07-22 11:26:09 for 'Sertraline HCl 50 MG Tablet'Pharmac y Notes: Prescription not found. Contact Pharmacy by other means Cancel[facility] Response got Denied on 2024-07-22 11:26:09 for 'Sertraline HCl 100 MG Tablet'Pharmac y Notes: Prescription not found. Contact Pharmacy by other means 1. recurrent major depression - Sertraline 150 mg daily at night education on compliance with medications and communication and goals, Educated on all medications, benefits, side effects, risk, and mental health, depression anxiety, and memory disorder, mood d/o, movement d/o, and compliance with medications and appointmentseducation on all medication obtain labs PCP 2. Generalized anxiety disorder -sertraline Obtain labs PCP stable 3. Memory impairment -discussed care plan memory testing 05/27/21CANS completed and reviewed SLUMS = 19 05/27/21 SLUMS= 21 12/22/22 SLUMS= 25 05/07/24 Namenda 5 mg twice daily, education on medication - Discuss increase Namenda and adding either Aricept or Exelon and patient does not want to change or add additional rx going to [facility] and plans to attend 3 x week and working on memory and mood, [facility] 4. Insomnia disorder related to another mental disorder -stable 07/22/2024 MDD (major depressive disorder), recurrent episode, mild (ICD-10 - F33.0) Learning About Depression Screening material was published, Preventing Depression From Coming Back: Care Instructions material was published, Seasonal Affective Disorder: Care Instructions material was published, Learning About Depression material was published, Learning About How to Get Help During a Mental Health Crisis material was published 1. recurrent major depression - patient reported off Sertraline 150 mg daily at night- stopped at [facility] 06/02 reported on Wellbutrin XL 150 mg daily in am- reported doing better lives at [facility] obtain hospital records and labs [facility] education on compliance with medications and communication and goals, Educated on all medications, benefits, side effects, risk, and mental health, depression anxiety, and memory disorder, mood d/o, movement d/o, and compliance with medications and appointmentseducation on all medication obtain labs PCP 2. Generalized anxiety disorder Obtain labs PCP stable 3. Memory impairment -discussed care plan memory testing 05/27/21CANS completed and reviewed SLUMS = 19 05/27/21 SLUMS= 21 12/22/22 SLUMS= 25 05/07/24 d/c Namenda 5 mg twice daily, reported stopped at hospital 06/02 [facility] therapy and plans to attend 3 x week and working on memory and mood, exc[facility] records in [facility] reviewed 4. Insomnia disorder related to another mental disorder -stable 10/22/2024 MDD (major depressive disorder), recurrent episode, mild (ICD-10 - F33.0) Learning About Depression Screening material was published, Preventing Depression From Coming Back: Care Instructions material was published, Seasonal Affective Disorder: Care Instructions material was published, Learning About Depression material was published, Learning About How to Get Help During a Mental Health Crisis material was published 1. recurrent major depression - Wellbutrin XL 150 mg daily in am- reported doing better lives at [facility] education on compliance with medications and communication and goals, Educated on all medications, benefits, side effects, risk, and mental health, depression anxiety, and memory disorder, mood d/o, movement d/o, and compliance with medications and appointmentseducation on all medication obtain labs PCP 2. Generalized anxiety disorder Obtain labs PCP stable 3. Memory impairment -discussed care plan memory testing 05/27/21CANS completed and reviewed SLUMS = 19 05/27/21 SLUMS= 21 12/22/22 SLUMS= 25 05/07/24 hx [facility] and plans to attend 3 x week and working on memory and mood, exc[facility] records in [facility] reviewed 4. Insomnia disorder related to another mental disorder -stable 01/21/2025 MDD (major depressive disorder), recurrent episode, mild (ICD-10 - F33.0) Learning About Depression Screening material was published, Preventing Depression From Coming Back: Care Instructions material was published, Seasonal Affective Disorder: Care Instructions material was published, Learning About Depression material was published, Learning About How to Get Help During a Mental Health Crisis material was published 1. recurrent major depression - Wellbutrin XL 150 mg daily in am- reported doing better lives at [facility] education on compliance with medications and communication and goals, Educated on all medications, benefits, side effects, risk, and mental health, depression anxiety, and memory disorder, mood d/o, movement d/o, and compliance with medications and appointmentseducation on all medication obtain labs PCP 2. Generalized anxiety disorder Obtain labs PCP stable 3. Memory impairment - discuss rx for memory- patient reported does not want rx discussed care plan memory testing 05/27/21CANS completed and reviewed SLUMS = 19 05/27/21 SLUMS= 21 12/22/22 SLUMS= 25 05/07/24 01/21/25 SLUMS = 21 h[facility] and plans to attend 3 x week and working on memory and mood, [facility] records in [facility] reviewed 4. Insomnia disorder related to another mental disorder -stable 10/22/2024 Insomnia due to other mental disorder (ICD-10 - F51.05) 1. recurrent major depression - Wellbutrin XL 150 mg daily in am- reported doing better lives at [facility] education on compliance with medications and communication and goals, Educated on all medications, benefits, side effects, risk, and mental health, depression anxiety, and memory disorder, mood d/o, movement d/o, and compliance with medications and appointmentseducation on all medication obtain labs PCP 2. Generalized anxiety disorder Obtain labs PCP stable 3. Memory impairment -discussed care plan memory testing 05/27/21CANS completed and reviewed SLUMS = 19 05/27/21 SLUMS= 21 12/22/22 SLUMS= 25 05/07/24 hx [facility] and plans to attend 3 x week and working on memory and mood, excise records in [facility] reviewed 4. Insomnia disorder related to another mental disorder -stable 10/22/2024 Other amnesia (ICD-10 - R41.3) 1. recurrent major depression - Wellbutrin XL 150 mg daily in am- reported doing better lives at [facility] education on compliance with medications and communication and goals, Educated on all medications, benefits, side effects, risk, and mental health, depression anxiety, and memory disorder, mood d/o, movement d/o, and compliance with medications and appointmentseducation on all medication obtain labs PCP 2. Generalized anxiety disorder Obtain labs PCP stable 3. Memory impairment -discussed care plan memory testing 05/27/21CANS completed and reviewed SLUMS = 19 05/27/21 SLUMS= 21 12/22/22 SLUMS= 25 05/07/24 hx [facility] and plans to attend 3 x week and working on memory and mood, exc[facility] records in [facility] reviewed 4. Insomnia disorder related to another mental disorder -stable 01/21/2025 Insomnia due to other mental disorder (ICD-10 - F51.05) 1. recurrent major depression - Wellbutrin XL 150 mg daily in am- reported doing better lives at [facility] education on compliance with medications and communication and goals, Educated on all medications, benefits, side effects, risk, and mental health, depression anxiety, and memory disorder, mood d/o, movement d/o, and compliance with medications and appointmentseducation on all medication obtain labs PCP 2. Generalized anxiety disorder Obtain labs PCP stable 3. Memory impairment - discuss rx for memory- patient reported does not want rx discussed care plan memory testing 05/27/21CANS completed and reviewed SLUMS = 19 05/27/21 SLUMS= 21 12/22/22 SLUMS= 25 05/07/24 01/21/25 SLUMS = 21 hx [facility] and plans to attend 3 x week and working on memory and mood, [facility] records in [facility] reviewed 4. Insomnia disorder related to another mental disorder -stable 07/22/2024 Insomnia due to other mental disorder (ICD-10 - F51.05) 1. recurrent major depression - patient reported off Sertraline 150 mg daily at night- stopped at [facility] 06/02 reported on Wellbutrin XL 150 mg daily in am- reported doing better lives at [facility] obtain hospital records and labs [facility] education on compliance with medications and communication and goals, Educated on all medications, benefits, side effects, risk, and mental health, depression anxiety, and memory disorder, mood d/o, movement d/o, and compliance with medications and appointmentseducation on all medication obtain labs PCP 2. Generalized anxiety disorder Obtain labs PCP stable 3. Memory impairment -discussed care plan memory testing 05/27/21CANS completed and reviewed SLUMS = 19 05/27/21 SLUMS= 21 12/22/22 SLUMS= 25 05/07/24 d/c Namenda 5 mg twice daily, reported stopped at hospital 06/02 hx [facility] and plans to attend 3 x week and working on memory and mood, [facility] records in [facility] reviewed 4. Insomnia disorder related to another mental disorder -stable 05/07/2024 Insomnia due to other mental disorder (ICD-10 - F51.05) 1. recurrent major depression - Sertraline 150 mg daily at night education on compliance with medications and communication and goals, Educated on all medications, benefits, side effects, risk, and mental health, depression anxiety, and memory disorder, mood d/o, movement d/o, and compliance with medications and appointmentseducation on all medication obtain labs PCP 2. Generalized anxiety disorder -sertraline Obtain labs PCP stable 3. Memory impairment -discussed care plan memory testing 05/27/21CANS completed and reviewed SLUMS = 19 05/27/21 SLUMS= 21 12/22/22 SLUMS= 25 05/07/24 Namenda 5 mg twice daily, education on medication - Discuss increase Namenda and adding either Aricept or Exelon and patient does not want to change or add additional rx going to [facility] and plans to attend 3 x week and working on memory and mood, exc[facility] 4. Insomnia disorder related to another mental disorder -stable 05/07/2024 Other amnesia (ICD-10 - R41.3) 1. recurrent major depression - Sertraline 150 mg daily at night education on compliance with medications and communication and goals, Educated on all medications, benefits, side effects, risk, and mental health, depression anxiety, and memory disorder, mood d/o, movement d/o, and compliance with medications and appointmentseducation on all medication obtain labs PCP 2. Generalized anxiety disorder -sertraline Obtain labs PCP stable 3. Memory impairment -discussed care plan memory testing 05/27/21CANS completed and reviewed SLUMS = 19 05/27/21 SLUMS= 21 12/22/22 SLUMS= 25 05/07/24 Namenda 5 mg twice daily, education on medication - Discuss increase Namenda and adding either Aricept or Exelon and patient does not want to change or add additional rx going to [facility] and plans to attend 3 x week and working on memory and mood, excise 4. Insomnia disorder related to another mental disorder -stable 07/22/2024 Other amnesia (ICD-10 - R41.3) 1. recurrent major depression - patient reported off Sertraline 150 mg daily at night- stopped at [facility] 06/02 reported on Wellbutrin XL 150 mg daily in am- reported doing better lives at [facility] obtain hospital records and labs [facility] education on compliance with medications and communication and goals, Educated on all medications, benefits, side effects, risk, and mental health, depression anxiety, and memory disorder, mood d/o, movement d/o, and compliance with medications and appointmentseducation on all medication obtain labs PCP 2. Generalized anxiety disorder Obtain labs PCP stable 3. Memory impairment -discussed care plan memory testing 05/27/21CANS completed and reviewed SLUMS = 19 05/27/21 SLUMS= 21 12/22/22 SLUMS= 25 05/07/24 d/c Namenda 5 mg twice daily, reported stopped at hospital 06/02 hx [facility] and plans to attend 3 x week and working on memory and mood, [facility] records in [facility] reviewed 4. Insomnia disorder related to another mental disorder -stable 01/21/2025 Other amnesia (ICD-10 - R41.3) 1. recurrent major depression - Wellbutrin XL 150 mg daily in am- reported doing better lives at [facility] education on compliance with medications and communication and goals, Educated on all medications, benefits, side effects, risk, and mental health, depression anxiety, and memory disorder, mood d/o, movement d/o, and compliance with medications and appointmentseducation on all medication obtain labs PCP 2. Generalized anxiety disorder Obtain labs PCP stable 3. Memory impairment - discuss rx for memory- patient reported does not want rx discussed care plan memory testing 05/27/21CANS completed and reviewed SLUMS = 19 05/27/21 SLUMS= 21 12/22/22 SLUMS= 25 05/07/24 01/21/25 SLUMS = 21 h[facility] and plans to attend 3 x week and working on memory and mood, [facility] in [facility] reviewed 4. Insomnia disorder related to another mental disorder -stable 01/21/2025 Encounter for screening for depression (ICD-10 - Z13.31) 1. recurrent major depression - Wellbutrin XL 150 mg daily in am- reported doing better lives at [facility] education on compliance with medications and communication and goals, Educated on all medications, benefits, side effects, risk, and mental health, depression anxiety, and memory disorder, mood d/o, movement d/o, and compliance with medications and appointmentseducation on all medication obtain labs PCP 2. Generalized anxiety disorder Obtain labs PCP stable 3. Memory impairment - discuss rx for memory- patient reported does not want rx discussed care plan memory testing 05/27/21CANS completed and reviewed SLUMS = 19 05/27/21 SLUMS= 21 12/22/22 SLUMS= 25 05/07/24 01/21/25 SLUMS = 21 hx [facility] and plans to attend 3 x week and working on memory and mood, [facility] in [facility] reviewed 4. Insomnia disorder related to another mental disorder -stable 10/22/2024 Encounter for screening for depression (ICD-10 - Z13.31) 1. recurrent major depression - Wellbutrin XL 150 mg daily in am- reported doing better lives at [facility] education on compliance with medications and communication and goals, Educated on all medications, benefits, side effects, risk, and mental health, depression anxiety, and memory disorder, mood d/o, movement d/o, and compliance with medications and appointmentseducation on all medication obtain labs PCP 2. Generalized anxiety disorder Obtain labs PCP stable 3. Memory impairment -discussed care plan memory testing 05/27/21CANS completed and reviewed SLUMS = 19 05/27/21 SLUMS= 21 12/22/22 SLUMS= 25 05/07/24 hx [facility] and plans to attend 3 x week and working on memory and mood, [facility] records in [facility] reviewed 4. Insomnia disorder related to another mental disorder -stable 07/22/2024 Hypertension, unspecified type (ICD9-CM - 401.9) 1. recurrent major depression - patient reported off Sertraline 150 mg daily at night- stopped at [facility] 06/02 reported on Wellbutrin XL 150 mg daily in am- reported doing better lives at [facility] obtain hospital records and labs [facility] education on compliance with medications and communication and goals, Educated on all medications, benefits, side effects, risk, and mental health, depression anxiety, and memory disorder, mood d/o, movement d/o, and compliance with medications and appointmentseducation on all medication obtain labs PCP 2. Generalized anxiety disorder Obtain labs PCP stable 3. Memory impairment -discussed care plan memory testing 05/27/21CANS completed and reviewed SLUMS = 19 05/27/21 SLUMS= 21 12/22/22 SLUMS= 25 05/07/24 d/c Namenda 5 mg twice daily, reported stopped at hospital 06/02 hx [facility] and plans to attend 3 x week and working on memory and mood, [facility] records in [facility] reviewed 4. Insomnia disorder related to another mental disorder -stable 01/21/2025 Encounter for screening for cardiovascular disorders (ICD-10 - Z13.6) 1. recurrent major depression - Wellbutrin XL 150 mg daily in am- reported doing better lives at [facility] education on compliance with medications and communication and goals, Educated on all medications, benefits, side effects, risk, and mental health, depression anxiety, and memory disorder, mood d/o, movement d/o, and compliance with medications and appointmentseducation on all medication obtain labs PCP 2. Generalized anxiety disorder Obtain labs PCP stable 3. Memory impairment - discuss rx for memory- patient reported does not want rx discussed care plan memory testing 05/27/21CANS completed and reviewed SLUMS = 19 05/27/21 SLUMS= 21 12/22/22 SLUMS= 25 05/07/24 01/21/25 SLUMS = 21 hx [facility] and plans to attend 3 x week and working on memory and mood, [facility] records in [facility] reviewed 4. Insomnia disorder related to another mental disorder -stable 10/22/2024 Encounter for screening for cardiovascular disorders (ICD-10 - Z13.6) 1. recurrent major depression - Wellbutrin XL 150 mg daily in am- reported doing better lives at [facility] education on compliance with medications and communication and goals, Educated on all medications, benefits, side effects, risk, and mental health, depression anxiety, and memory disorder, mood d/o, movement d/o, and compliance with medications and appointmentseducation on all medication obtain labs PCP 2. Generalized anxiety disorder Obtain labs PCP stable 3. Memory impairment -discussed care plan memory testing 05/27/21CANS completed and reviewed SLUMS = 19 05/27/21 SLUMS= 21 12/22/22 SLUMS= 25 05/07/24 hx [facility] and plans to attend 3 x week and working on memory and mood, [facility] in [facility] reviewed 4. Insomnia disorder related to another mental disorder -stable 10/22/2024 Dietary counseling and surveillance (ICD-10 - Z71.3) 1. recurrent major depression - Wellbutrin XL 150 mg daily in am- reported doing better lives at [facility] education on compliance with medications and communication and goals, Educated on all medications, benefits, side effects, risk, and mental health, depression anxiety, and memory disorder, mood d/o, movement d/o, and compliance with medications and appointmentseducation on all medication obtain labs PCP 2. Generalized anxiety disorder Obtain labs PCP stable 3. Memory impairment -discussed care plan memory testing 05/27/21CANS completed and reviewed SLUMS = 19 05/27/21 SLUMS= 21 12/22/22 SLUMS= 25 05/07/24 hx [facility] and plans to attend 3 x week and working on memory and mood, [facility] records in [facility] reviewed 4. Insomnia disorder related to another mental disorder -stable 01/21/2025 Dietary counseling and surveillance (ICD-10 - Z71.3) 1. recurrent major depression - Wellbutrin XL 150 mg daily in am- reported doing better lives at [facility] education on compliance with medications and communication and goals, Educated on all medications, benefits, side effects, risk, and mental health, depression anxiety, and memory disorder, mood d/o, movement d/o, and compliance with medications and appointmentseducation on all medication obtain labs PCP 2. Generalized anxiety disorder Obtain labs PCP stable 3. Memory impairment - discuss rx for memory- patient reported does not want rx discussed care plan memory testing 05/27/21CANS completed and reviewed SLUMS = 19 05/27/21 SLUMS= 21 12/22/22 SLUMS= 25 05/07/24 01/21/25 SLUMS = 21 hx [facility] and plans to attend 3 x week and working on memory and mood, [facility] records in [facility] reviewed 4. Insomnia disorder related to another mental disorder -stable 05/07/2024 Other referral to the local chapter or national office of the Alzheimer's [employer] (5-138-965-099 0; http://www.alz .org), the Alzheimer's Disease Education and Referral Center (ADEAR) (5-041-692-821 0; http://www.glenn .nih.gov/Alzhe imers/), 1. recurrent major depression - Sertraline 150 mg daily at night education on compliance with medications and communication and goals, Educated on all medications, benefits, side effects, risk, and mental health, depression anxiety, and memory disorder, mood d/o, movement d/o, and compliance with medications and appointmentseducation on all medication obtain labs PCP 2. Generalized anxiety disorder -sertraline Obtain labs PCP stable 3. Memory impairment -discussed care plan memory testing 05/27/21CANS completed and reviewed SLUMS = 19 05/27/21 SLUMS= 21 12/22/22 SLUMS= 25 05/07/24 Namenda 5 mg twice daily, education on medication - Discuss increase Namenda and adding either Aricept or Exelon and patient does not want to change or add additional rx going to [facility] and plans to attend 3 x week and working on memory and mood, [facility] 4. Insomnia disorder related to another mental disorder -stable Plan Of Treatment Next Appt Details Provider Name:Makenna Bhardwaj , 04/22/2025 02:00:00 PM, [facility] [address], [facility] [address], [place], [address], Insurance Providers Payer Name Payer Address Payer Phone Subscriber Number Group Number Insured Name Patient Relationship to Insured Coverage Start Date Coverage End Date [facility] Medicare Replacement/ Advantage - Hmo [address] [place] [phone] [id number] MARY ANNE VALEOR Self - patient is the insured Medical (General) History Medical History History ICD Code Problems: Abnormal weight loss Anger reaction Generalized anxiety disorder Hypersomnia Insomnia disorder related to another men gloria disorder Memory impairment Moderate recurrent major depression Weight loss , ECT 2018 Surgical History Surgery Date(Month/Year) Transplantation of nerve (70051645) Implantation of umbrella into vena cava (23396600)
--- OUTSIDE RECORDS SUMMARY | 2025-03-31 12:37 | XMS_ITS | Clinical Summary ---
Author Organization [facility] [employer] Address [address] [place] [address] Care Team Providers Care Shellfish Shucker Name Role Phone Ruslan Herman DO Primary Care Provider [phone] Source Comments [facility] [employer],non-owned Affiliates and Associated Physician Practices is amultiple site organization consisting of ambulatory clinics and hospital sitesin [place], [place], [place]. This disclosure is being madepursuant to the Care Everywhere program and may not contain all information available regarding this patient. Last updated 18.[facility] [employer] Allergies No known active allergies Medications * This document contains information received from the source organization and may not represent a complete record from that organization. * Be aware that medications may not be up to date on this document. Alwaysverify current medications with the patient. buPROPion XL 24hr (Wellbutrin-XL) 150 MG tabletIndicatio ns:Major Depressive Disorder Take 1 (one) tablet by mouth once daily Reasons: Major Depressive Disorder 30 tablet 1 4 Active polyethylene glycol 3350 (Miralax) 17 g packetIndicatio ns:Constipation Take 17 (seventeen) g by mouth once daily as needed for Constipation Reasons: Constipation 30 packet 1 4 Active warfarin (Coumadin) 4 MG tabletIndicatio ns:Hx of DVT/PE Take 8mg on Monday and Monday and 4mg all other days. Next INR check 06/11/24 with results to [facility] Reasons: Hx of DVT/PE 38 tablet 4 Active Active Problems Problem Noted Date Diagnosed Date Major neurocognitive disorder 05/25/2024 Social History Tobacco Use Types Packs/Day Years Used Date Smoking Tobacco: Never Smokeless Tobacco: Never Tobacco Cessation:Counseling Given: No Alcohol Use Standard Drinks/Week Comments Not Currently 0 (1 standard drink = 0.6 oz pur e alcohol) AUDIT-C Answer Date Recorded Q1: How often do you have a drink containing alcohol? Never 05/26/2024 Q2: How many drinks containi ng alcohol do you have on a typical day when you are drinking? Patient does not drink Q3: How often do you have si x or more drinks on one occasion? Never 05/26/2024 Overall Financial Resource Strain (CARDIA) Answe r Date Recorded How hard is it for you to pa y for the very basics like food, housing, medical care, and heating? Not hard at all 05/26/2024 [facility] Occupat ional Health - Occupational Stress Questionnaire Answer Date Recorded Do you feel stress - tense, restless, nervous, or anxious, or unable to sleep at night because your mind is troubled all the time - these days? Rather much 05/26/2024 Hunger Vital Sign Answer Date Recorded Within the past 12 months, y ou worried that your food would run out before you got the money to buy more. Never true 05/26/20 24 Within the past 12 months, t he food you bought just didn't last and you didn't have money to get more. Never true 05/26/2024 PRAPARE - Transportation Answer Date Re corded In the past 12 months, has l ack of transportation kept you from medical appointments or from getting medications? No 05/10 In the past 12 months, has l ack of transportation kept you from meetings, work, or from getting things needed for daily living? No 05/26/2024 Housing Stability Vital Sign Answer Singh e Recorded In the last 12 months, was t here a time when you were not able to pay the mortgage or rent on time? No 05/26/2024 In the past 12 months, how m any times have you moved where you were living? 1 05/26/2024 At any time in the past 12 m [facility], were you homeless or living in a half-way (including now)? No 05/26/2024 Sex and Gender Information Value Date Recorded Sex Assigned at Not on file Legal Sex Male 4:01 PM CDT Gender Identity Not on file Sexual Orientation Not on file Last Filed Vital Signs Vital Sign Reading Time Taken Comments Blood Pressure 140/84 06/07/2024 7:16 AM ASSISTED SALES REPRESENTATIVE Pulse 72 06/07/2024 7:16 AM ASSISTED SALES REPRESENTATIVE Temperature 36.6 C (97.9 F) 06/07/2024 7:16 AM ASSISTED SALES REPRESENTATIVE Respiratory Rate 16 06/07/2024 7:16 AM ASSISTED SALES REPRESENTATIVE Oxygen Saturation 100% 06/07/2024 7:16 AM ASSISTED SALES REPRESENTATIVE Inhaled Oxygen Concentration - - Weight 81.8 kg (180 lb 6.4 oz) 05/26/2024 12:31 AM ASSISTED SALES REPRESENTATIVE Height 185.4 cm (6' 1) 05/26/2024 12:31 AM ASSISTED SALES REPRESENTATIVE Body Mass Index 23.8 05/26/2024 12:31 AM ASSISTED SALES REPRESENTATIVE Plan of Treatment Health Maintenance Due Date Last Done Comments MEDICARE AWV 12 MONTHS 1945 DTAP/TDAP/TD VACCINES (1 - Tdap) 1962 PNEUMOCOCCAL VACCINE 50+ (1 of 1 - PCV) 1993 ZOSTER VACCINE (1 of 2) 1993 Respiratory Syncytial Virus (RSV) Vaccine Pt: or over 60 yrs (1 - 1-dose 75+ series) 2018 DEPRESSION SCREENING 07/10/2024 COVID-19 VACCINE (2 - season) 2025 09/15/2020 INFLUENZA VACCINE (#1) 2025 3, 06/19/2020, 05/03/2019, Additional history exists HEPATITIS B VACCINE Aged Out No longe r eligible based on patient's age to complete this topic HIB VACCINE Aged Out No longer eligi ble based on patient's age to complete this topic HPV VACCINE Aged Out No longer eligi ble based on patient's age to complete this topic MENINGOCOCCAL (Group B) VACCINE SHARED DECISION-MAKING Aged Out No longer eligible based on patient's age to complete this topic MENINGOCOCCAL GROUPS A/C/Y/W VACCINE Aged Out No longer eligible based on patient's age to complete this topic Insurance [facility] MEDICARE [facility] MEDICARE Advance Directives Documents on File Type Date Recorded Patient Accounts Clerk Expl anation Adv Directive/Living Will/POA 06/10/2024 11:00 AM * Full Code (Latest Code Status on File) Date Activated Date Inactivated Comments 05/26/2024 12:32 AM 06/07/2024 11:36 AM Care Teams Shellfish Shucker Relationship Specialty Start Date End Date Ruslan Herman DO [address] [place] [address] PCP - General 12/30/20
--- OUTSIDE RECORDS SUMMARY | 2025-03-31 12:37 | XMS_ITS | Patient Health Record ---
Author Organization [employer]. Address [address] [place] [address] Care Team Providers Care Research Specialist Name Role Phone Ramin Jeff Primary Care Provider Mayur Barrera Unavailable [phone] Reason For Referral No Information Medications Medication SIG (Take, Route, Frequency, Duration) Notes Start Date End Date Status RA Vitamin B-12 TR 1,000mcg take 1 by Oral route ORAL 01/26/2012 Ac tive RisperDAL 2mg take 1 tablet 2MG b ORAL 01/26/2012 Active Thiamine HCl 100mg take 1 by Oral route ORAL 01/0907/10/1899 Active Flonase 50mcg/actuation USE TWO SPRAYS I N EA NASAL 05/22/2015 Active Wellbutrin XL 150mg take 2 po qam and 1 ORAL 07/3007/10/1899 Active Pepcid 20mg TAKE ONE TABLET BY M ORAL 11/21/2014 0 Active Metoprolol Succinate ER 25mg TAKE ONE TABLET BY M ORAL 10/05/2014 Ac tive Flexeril take 1 tablet by ora ORAL 06/18/201307/1899 Active traZODone HCl 50mg take 05 Tablet 25MG ORAL 201107/10/1899 Active Sertraline HCl 50mg take 2 Tablet 100MG ORAL 01/2507/10/1899 Active [place] 5-325mg take 1 tablet by ora ORAL 06/18/2013 Active Flomax 0.4mg TAKE ONE CAPSULE BY ORAL 11/17/2014 0 Active Lisinopril 10mg TAKE ONE TABLET BY M ORAL 02/18/20 15 Active Astepro 0.15 %(205.5 mcg) spray 1 spray 5MC NASAL 08/02/2012 Active Coumadin 4mg TAKE ONE TABLET BY M ORAL 05/05/2015 Active Immunizations Vaccine Route Administration Date Status Comme nts zzInfluenza, High dose, injectable, preservative free (Fluzone) Unknown 05/19/2014 Administered Tdap (Boostrix, Adacel) Unknown 08/11/2014 Administered Pneumococcal polysaccharide PPV23 (Pneumovax 23) Unknown 04/26/2012 Administered Pneumococcal polysaccharide PPV23 (Pneumovax 23) IM Intramuscular 01/14/2016 Administered Influenza (split), 3 yrs and above IM Intramuscular 01/14/2016 Administered Problems Problem Type SNOMED Code ICD Code Onset Dates Problem Status W/U Status Risk Notes Problem Type II diabetes mellitus without complication (860389323) Diabetes mellitus without mention of complication, type II or unspecified type, not stated as uncontrolled (250.00) 0 confirmed Santos Problem Vitamin B-complex deficiency (968331458) Other B-complex deficiencies (266.2) 0 confirmed Santos Problem Hyperlipidemia (31984617) Other and unspecified hyperlipidemia (272.4) 0 confirmed Santos Problem Obesity (943707678) Obesity, unspecified (278.00) 0 confirmed Santos Problem Depressive disorder (55100279) Depressive disorder, not elsewhere classified (311) 0 confirmed Santos Problem Carpal tunnel syndrome (73963783) Carpal tunnel syndrome (354.0) 0 confirmed Santos Problem Lesion of ulnar nerve (649846297) Lesion of ulnar nerve (354.2) 0 confirmed Santos Problem Essential hypertension (10738162) Unspecified essential hypertension (401.9) 0 confirmed Santos Problem Pulmonary embolism with pulmonary infarction (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) Other pulmonary embolism and infarction (415.19) 0 confirmed Santos Problem Thromboembolism of vein (608471293) Venous embolism and thrombosis of unspecified deep vessels of lower extremity (453.40) 0 confirmed Santos Problem Lumbago (483485264) Lumbago (724.2) 0 confirmed Santos Problem Malaise and fatigue (597997602) Other malaise and fatigue (780.79) 0 confirmed Santos Problem Disturbance of skin sensation (500485107) Disturbance of skin sensation (782.0) 0 confirmed Santos Problem Chest pain (39261912) Chest pain, unspecified (786.50) 0 confirmed Santos Problem Needs influenza immunization (685332010) Need for prophylactic vaccination and inoculation, Influenza (V04.81) 0 confirmed Santos Problem Requires vaccination (984158370) Need for prophylactic vaccination and inoculation against unspecified single disease (V05.9) 0 confirmed Santos Problem Respiratory disease screening (936771883) Screening for other and unspecified respiratory condition (V81.4) 0 confirmed Santos Problem 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) 0 confirmed Santos Problem Type II diabetes mellitus without complication (418178760) Type 2 diabetes mellitus without complications (E11.9) 0 confirmed Santos Problem Hyperlipidemia (37039277) Hyperlipidemia, unspecified (E78.5) 0 confirmed Santos Problem Essential hypertension (60182115) Essential (primary) hypertension (I10) 0 confirmed Santos Problem Saddle embolus of pulmonary artery (291535406414515) Saddle embolus of pulmonary artery without acute cor pulmonale (I26.92) 0 confirmed Santos Problem Requires vaccination (538982049) An Encounter for immunization (Z23) 0 confirmed Santos Plan Of Treatment No Information Insurance Providers Payer Name Payer Address Payer Phone Subscriber Number Group Number Insured Name Patient Relationship to Insured Coverage Start Date Coverage End Date [employer] [place] [address] [address] [place] [address] [id number] Bares, Shimon Self - patient is the insured [facility] [address] [place] [phone] [id number] Bares, Shimon Self - patient is the insured [facility] [address] [place] [address] [id number] Bares, Shimon Self - patient is the insured [facility] [address] [place] [address] [id number] Bares, Shimon Self - patient is the insured
--- NOTE | 2025-03-31 13:24 | ED_ITS ---
HPI - Abdominal Pain General Chief Complaint: Abdominal Pain <JESSICA Dee Last Filed: 03/31/25 13:30> Stated Complaint: bowel obstruction-can't go <JESSICA Dee Last Filed: 03/31/25 13:30> Time Seen by Provider: 03/31/25 13:24 <JESSICA Dee Last Filed: 03/31/25 13:30> Focused HPI: Patient is an 80-year-old male who presents the ED with report of constipation. Patient is a resident of a local [facility]. Reports he has been constipated for the past few days, last BM 4-5 days ago. Is passing some gas intermittently. Has been taking Miralax w/o improvement. Reports diffuse abd pain, abd bloating, difficulty urinating, belching. Denies N/V, fevers. Hx of bowel obstruction in the past and states sx's feel similar. Denies previous abdominal surgeries. GENERAL: Well-appearing, well-nourished, and in no acute distress. HEAD: Normocephalic, atraumatic. CHEST: Clear to auscultation. ?No respiratory distress. HEART: Regular rate and rhythm.? ABD: Mild distension of abdomen, diffuse tenderness, hypoactive BS NEURO: ?Alert and oriented x3. Patient screened in triage and initial orders placed.? ?Additional care and disposition to be based upon?diagnostic testing and treatment. <Valeri Beckman PA-C - Last Filed: 03/31/25 13:30> Source: patient <JESSICA Dee Last Filed: 03/31/25 13:30> Mode of arrival: ambulatory <JESSICA Dee Last Filed: 03/31/25 13:30> Limitations: no limitations <JESSICA Dee Last Filed: 03/31/25 13:30> History of Present Illness HPI narrative: Patient 80-year-old gentleman presents emergency department with chief complaint of constipation patient reports that he has had a fullness throughout his abdomen reports he has been taking MiraLax daily without removed patient feels as though there is stool sitting in his rectum that will just not come out patient reports that he has had problems with constipation in the past patient also reports had prior history of bowel obstructions <Timo Salas MD - Last Filed: 03/31/25 17:23> Related Data Home Medications: Home Medications ?Medication ?Instructions ?Recorded ?Confirmed ?Last Taken ?Type apixaban 5 mg tablet (Eliquis) mg PO 12/10/24 12/10/24 Unknown History <Valeri Beckman PA-C - Last Filed: 03/31/25 13:30> Allergies/Adverse Reactions: Allergies Allergy/AdvReac Type Severity Reaction Status Date / Time No Known Allergies Allergy Verified 03/31/25 11:28 <Valeri Beckman PA-C - Last Filed: 03/31/25 13:30> Review of Systems 2 Review of Systems: A 10 system review of systems was completed on the patient and is negative except for what is stated in the HPI. Nursing and ancillary documentation was reviewed. <Timo Salas MD - Last Filed: 03/31/25 17:23> [facility] Past Medical History Medical History: Medical History Chronic anticoagulation Benign prostatic hyperplasia History of pulmonary embolism Hypertension History of colon polyps Memory loss Gastroesophageal reflux disease without esophagitis History of deep vein thrombosis (DVT) of lower extremity Type 2 diabetes mellitus with diabetic polyneuropathy, without long-term current use of insulin Allergies Anxiety Arthritis Depression Remote history of suicide attempt. Previously treated with ECT. <Valrei Beckman PA-C - Last Filed: 03/31/25 13:30> Surgical History Surgical History: Surgical History History of decompression of ulnar nerve Presence of vena cava filter Implanted on 11/23/2011. <Valeri Beckman PA-C - Last Filed: 03/31/25 13:30> Family History Family History: Family History Sibling Patient's sister is in good health Father Cerebrovascular accident Family history of throat cancer Patient's father is Mother Patient's mother is Acute myocardial infarction <Valeri Beckman PA-C - Last Filed: 03/31/25 13:30> Social History Social History: Social History Social History: Code status: Full code. He designates his as his surrogate decision maker. Smoking status: Never smoker Tobacco type: cigars Second hand tobacco smoke exposure: Yes Smoking end date: 12/15/1965 Alcohol intake: never Substance use: never Substance use type: does not use Do You Feel Safe in your Home?: Yes Lack of Transportation: YES Lack of Food: Sometimes True Current Housing: I Have Housing Concerned About Future Housing: Decline to Answer Difficulty Paying Gas/Electric Bills: Decline to Answer Difficulty Paying for Meds: YES Currently Unemployed: No Education: Master's Degree or Higher Difficulty w/ Childcare or Family Care: No Living arrangements: with family Additional living arrangements comments: The patient lives with his . 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 Gender identity (if verbalized by the patient): Male Sexual Orientation (if Verbalized by the Patient): Straight or Heterosexual Spiritual care concerns: No Agree to blood products: Yes <Valeri Beckman PA-C - Last Filed: 03/31/25 13:30> Exam 2 Narrative: GENERAL: Well-appearing, well-nourished, and in no acute distress. HEAD: Normocephalic, atraumatic. EYES: PERRLA and EOMI. ENT: Nares clear, no rhinorrhea or epistaxis. Mucous membranes moist. NECK: Supple. CHEST: Clear to auscultation. No respiratory distress. HEART: Regular rate and rhythm. No murmur heard. Normal peripheral pulses. ABDOMEN: Soft, nontender, nondistended, normal active bowel sounds. : Large amount of stool in the rectal vault manually disimpacted EXTREMITIES: Normal range of motion. No edema. SKIN: Warm, dry, no rash. NEURO: No focal deficits. Alert and oriented x3. PSYCH: Normal mood and affect. <Timo Salas MD - Last Filed: 03/31/25 17:23> Course Vital Signs Vital signs: Vital Signs Temperature 37.4 C 03/31/25 11:37 Pulse Rate 88 03/31/25 11:37 Respiratory Rate 20 03/31/25 11:37 Blood Pressure 135/75 03/31/25 11:37 Pulse Oximetry 88 L 03/31/25 11:37 Oxygen Delivery Room Air 03/31/25 11:37 Temperature 37.4 C 03/31/25 11:37 Pulse Rate 88 03/31/25 11:37 Respiratory Rate 20 03/31/25 11:37 Blood Pressure 135/75 03/31/25 11:37 Pulse Oximetry 96 03/31/25 16:13 Oxygen Delivery Room Air 03/31/25 11:37 <Valeri Beckman PA-C - Last Filed: 03/31/25 13:30> Vital Signs Temperature 37.4 C 03/31/25 11:37 Pulse Rate 88 03/31/25 11:37 Respiratory Rate 20 03/31/25 11:37 Blood Pressure 135/75 03/31/25 11:37 Pulse Oximetry 88 L 03/31/25 11:37 Oxygen Delivery Room Air 03/31/25 11:37 Temperature 37.4 C 03/31/25 11:37 Pulse Rate 88 03/31/25 11:37 Respiratory Rate 20 03/31/25 11:37 Blood Pressure 135/75 03/31/25 11:37 Pulse Oximetry 96 03/31/25 16:13 Oxygen Delivery Room Air 03/31/25 11:37 <Timo Salas MD - Last Filed: 03/31/25 17:23> MDM - Abdominal Pain MDM Narrative Medical decision making narrative: MSE by MYA in triage. <Valeri Beckman PA-C - Last Filed: 03/31/25 13:30> MSE by MYA in triage. Differential diagnosis includes fecal impaction, intra-abdominal infection, In laboratory studies were obtained showed white count of 20.7 CT scan of the abdomen pelvis showed significant lymphadenopathy as well as a fecal impaction Patient was manually disimpacted by myself and enemas have been ordered for the patient. Given the leukocytosis and the significant lymphadenopathy on the CT scan the case will be discussed with the hospitalist for admission <Timo Salas MD - Last Filed: 03/31/25 17:23> Lab Data Result diagrams: 03/31/25 13:47 03/31/25 13:56 <Valeri Beckman PA-C - Last Filed: 03/31/25 13:30> Labs: Lab Results 03/31/25 03/31/25 03/31/25 Range/Units 13:47 13:56 14:23 WBC 20.7 H (4.5-10.0) K/mm3 RBC 3.37 L (4.6-6.20) M/mm3 Hgb 11.3 L (14.0-18.0) g/dL Hct 35.8 L (42.0-52.0) % MCV 106.2 H (80-100) fl MCH 33.5 (26-34) pg MCHC 31.6 L (32-36) g/dl RDW 14.3 (11.5-14.5) % Plt Count 182 (150-375) k/mm3 MPV 9.1 (7.4-10.4) fl Immature Gran % (Auto) 0.1 (0-0.5) % Neut % (Auto) 11.9 L (45.5-73.1) % Lymph % (Auto) 77.1 H (18.3-44.2) % Redwood % (Auto) 10.3 H (2.6-8.5) % Eos % (Auto) 0.4 (0-4.4) % Baso % (Auto) 0.2 (0.2-1.2) % Lymph # (Auto) 15.95 H (0.9-3.2) K/mm3 Redwood # (Auto) 2.1 H (0.1-0.6) K/mm3 Eos # (Auto) 0.1 (0-0.3) K/mm3 Baso # (Auto) 0.1 (0.0-0.1) K/mm3 Abs Immat Gran (auto) 0.03 (0.00-0.031) K/mm3 Absolute Neuts (auto) 2.4 (1.3-6.7) K/mm3 Absolute Nucleated RBC 0.000 (0.0-0.012) K/mm3 Nucleated RBC % 0.0 (0.0-0.2) % Sodium 140 (137-145) mmol/L Potassium 4.5 (3.4-5.0) mmol/L Chloride 105 (98-107) mmol/L Carbon Dioxide 24 (22-30) mmol/L Anion Gap 11 (4-12) mmol/L BUN 23 H (9-20) mg/dL Creatinine 1.19 1.30 (0.7-1.3) mg/dL Estim Creat Clear Calc 45 42 ml/min Estimated GFR 59 53 L (59 - ) Glucose 103 (65-110) mg/dL Lactic Acid 0.8 (0.7-2.0) mmol/L Calcium 9.1 (8.4-10.2) mg/dL Total Bilirubin 0.9 (0.2-1.3) mg/dL AST 33 (17-59) U/L ALT 18 (6-50) U/L Alkaline Phosphatase 74 (38-126) U/L Total Protein 8.0 (6.3-8.2) g/dL Albumin 4.5 (3.5-5.1) g/dL Lipase 19 L (23-300) U/L Urine Color Yellow (Yellow) Urine Appearance Clear (Clear) Urine pH 5.0 (5.0-9.0) Ur Specific Bishop 1.038 H (1.001-1.035) Urine Protein Negative (Negative) mg/dL Urine Glucose (UA) Negative (Negative) mg/dL Urine Ketones Negative (Negative) mg/dL Ur Blood (Man) Negative (Negative) Urine Nitrate Negative (Negative) Urine Bilirubin Negative (Negative) Urine Urobilinogen 0.2 (<2.0) mg/dL Leukocyte Esterase Rfl Negative (Negative) KANDICE/UL <Valeri Beckman PA-C - Last Filed: 03/31/25 13:30> Lab Results 03/31/25 03/31/25 03/31/25 Range/Units 13:47 13:56 14:23 WBC 20.7 H (4.5-10.0) K/mm3 RBC 3.37 L (4.6-6.20) M/mm3 Hgb 11.3 L (14.0-18.0) g/dL Hct 35.8 L (42.0-52.0) % MCV 106.2 H (80-100) fl MCH 33.5 (26-34) pg MCHC 31.6 L (32-36) g/dl RDW 14.3 (11.5-14.5) % Plt Count 182 (150-375) k/mm3 MPV 9.1 (7.4-10.4) fl Immature Gran % (Auto) 0.1 (0-0.5) % Neut % (Auto) 11.9 L (45.5-73.1) % Lymph % (Auto) 77.1 H (18.3-44.2) % Redwood % (Auto) 10.3 H (2.6-8.5) % Eos % (Auto) 0.4 (0-4.4) % Baso % (Auto) 0.2 (0.2-1.2) % Lymph # (Auto) 15.95 H (0.9-3.2) K/mm3 Redwood # (Auto) 2.1 H (0.1-0.6) K/mm3 Eos # (Auto) 0.1 (0-0.3) K/mm3 Baso # (Auto) 0.1 (0.0-0.1) K/mm3 Abs Immat Gran (auto) 0.03 (0.00-0.031) K/mm3 Absolute Neuts (auto) 2.4 (1.3-6.7) K/mm3 Absolute Nucleated RBC 0.000 (0.0-0.012) K/mm3 Nucleated RBC % 0.0 (0.0-0.2) % Sodium 140 (137-145) mmol/L Potassium 4.5 (3.4-5.0) mmol/L Chloride 105 (98-107) mmol/L Carbon Dioxide 24 (22-30) mmol/L Anion Gap 11 (4-12) mmol/L BUN 23 H (9-20) mg/dL Creatinine 1.19 1.30 (0.7-1.3) mg/dL Estim Creat Clear Calc 45 42 ml/min Estimated GFR 59 53 L (59 - ) Glucose 103 (65-110) mg/dL Lactic Acid 0.8 (0.7-2.0) mmol/L Calcium 9.1 (8.4-10.2) mg/dL Total Bilirubin 0.9 (0.2-1.3) mg/dL AST 33 (17-59) U/L ALT 18 (6-50) U/L Alkaline Phosphatase 74 (38-126) U/L Total Protein 8.0 (6.3-8.2) g/dL Albumin 4.5 (3.5-5.1) g/dL Lipase 19 L (23-300) U/L Urine Color Yellow (Yellow) Urine Appearance Clear (Clear) Urine pH 5.0 (5.0-9.0) Ur Specific Bishop 1.038 H (1.001-1.035) Urine Protein Negative (Negative) mg/dL Urine Glucose (UA) Negative (Negative) mg/dL Urine Ketones Negative (Negative) mg/dL Ur Blood (Man) Negative (Negative) Urine Nitrate Negative (Negative) Urine Bilirubin Negative (Negative) Urine Urobilinogen 0.2 (<2.0) mg/dL Leukocyte Esterase Rfl Negative (Negative) KANDICE/UL <Timo Salas MD - Last Filed: 03/31/25 17:23> Imaging Data Radiologist's impression: ITS Impressions Abdomen/Pelvis CT 03/31/25 14:08 IMPRESSION: 1. Lymphadenopathy detailed above concerning for lymphoma. Tissue sampling recommended. 2. Fecal impaction with mild probable proctitis <Valeri Beckman PA-C - Last Filed: 03/31/25 13:30> ITS Impressions Abdomen/Pelvis CT 03/31/25 14:08 IMPRESSION: 1. Lymphadenopathy detailed above concerning for lymphoma. Tissue sampling recommended. 2. Fecal impaction with mild probable proctitis <Timo Salas MD - Last Filed: 03/31/25 17:23> Discharge Plan Discharge Clinical Impression: Leukocytosis, Intra-abdominal lymphadenopathy, Fecal impaction <Valeri Beckman PA-C - Last Filed: 03/31/25 13:30> Patient Disposition: Still a Patient <Valeri Beckman PA-C - Last Filed: 03/31/25 13:30> Condition: Stable <JESSICA Dee Last Filed: 03/31/25 13:30> Instructions: Antibiotic Form <JESSICA Dee Last Filed: 03/31/25 13:30> Patient Language: Sinhala <JESSICA Dee Last Filed: 03/31/25 13:30> Prescriptions: No Action Eliquis 5 mg tablet PO polyethylene glycol 3350 [Miralax] 17 gram powder in packet 17 g PO DAILY Qty: 100 1RF fluticasone propionate 50 mcg/actuation spray,suspension 2 spray NASAL DAILY Qty: 16 5RF Rx Instructions: patient only do it as needed ketoconazole 2 % shampoo See Rx Instructions .ROUTE .COMPLEX Qty: 120 0RF Dose Instruction: APPLY TOPICALLY TWICE A WEEK Rx Instructions: APPLY TOPICALLY TWICE A WEEK bupropion HCl 150 mg tablet extended release 24 hr 150 mg PO QAM Qty: 30 0RF <Valeri Beckman PA-C - Last Filed: 03/31/25 13:30> Follow-up/Referrals: Emilie Palomares APRN [Primary Care Provider, Internal Medicine] <Valeri Beckman PA-C - Last Filed: 03/31/25 13:30>
[2025-03-31 13:59] LABS: Hematocrit 35.8 % (42.0-52.0); Hemoglobin 11.3 g/dL (14.0-18.0); Immature Granulocyte Percent A 0.1 % (0-0.5); Lymphocytes Absolute Auto 15.95 K/mm3 (0.9-3.2); Mean Corpuscular HGB Conc 31.6 g/dl (32-36); Mean Corpuscular Hemoglobin 33.5 pg (26-34); Mean Corpuscular Volume 106.2 fl (80-100); Nucleated Red Blood Cells Absolute Auto 0.000 K/mm3 (0.0-0.012); Nucleated Red Blood Cells Perc 0.0 % (0.0-0.2); Platelet Count Result 182 k/mm3 (150-375); Red Blood Count 3.37 M/mm3 (4.6-6.20); White Blood Count 20.7 K/mm3 (4.5-10.0)
[2025-03-31 14:12] LABS: Alanine Aminotransferase 18 U/L (6-50); Albumin Level 4.5 g/dL (3.5-5.1); Alkaline Phosphatase 74 U/L (38-126); Anion Gap 11 mmol/L (4-12); Aspartate Amino Transferase 33 U/L (17-59); Bilirubin,Total 0.9 mg/dL (0.2-1.3); Blood Urea Nitrogen 23 mg/dL (9-20); Calcium 9.1 mg/dL (8.4-10.2); Carbon Dioxide 24 mmol/L (22-30); Chloride 105 mmol/L (98-107); Estimated CRCL calculation 45 ml/min; Estimated Glomerular Filt Rate 59; Glucose 103 mg/dL (65-110); Lipase 19 U/L (23-300); Potassium 4.5 mmol/L (3.4-5.0); Sodium 140 mmol/L (137-145); Total Protein 8.0 g/dL (6.3-8.2)
[2025-03-31 14:33] LABS: Estimated CRCL calculation 42 ml/min; Estimated Glomerular Filt Rate 53
[2025-03-31 14:38] LABS: Add Urine Microscopic? NO; Appearance Urine Clear (Clear); Glucose Urine UA Negative (Negative); Leukocyte Esterase Ur Negative LEU/UL (Negative); Nitrate Urine Negative (Negative); Specific Grav Ur 1.038 (1.001-1.035)
--- OUTSIDE RECORDS SUMMARY | 2025-03-31 15:17 | XMS_ITS | Clinical Summary ---
Author Organization [facility] Address [address] [place] [address] Care Team Providers Care Inorganic Chemist Name Role Phone Ruslan Herman DO Primary Care Provider [phone] Source Comments [facility],non-owned Affiliates and Associated Physician Practices is amultiple site organization consisting of ambulatory clinics and hospital sitesin [place], [place], [place] and [place]. This disclosure is being madepursuant to the Care Everywhere program and may not contain all information available regarding this patient. Last updated 18.[facility] Allergies No known active allergies Medications * [...] Next INR check 06/11/24 with results to [facility] Reasons: Hx of DVT/PE 38 tablet 4 [...] and heating? Not hard at all 05/26/2024 [facility] [place] [facility] Occupat ional [facility] - Occupational Stress [...] any time in the past 12 [facility], were you homeless or living in a alf (including now)? No 05/26/2024 Sex and Gender Information Value Date Recorded Sex Assigned at Not on file Legal Sex Male 4:01 PM CDT Gender Identity Not on file Sexual Orientation Not on file Last Filed Vital Signs Vital Sign Reading Time Taken Comments Blood Pressure 140/84 06/07/2024 7:16 AM COPYRIGHT CLERK Pulse 72 06/07/2024 7:16 AM COPYRIGHT CLERK Temperature 36.6 C (97.9 F) 06/07/2024 7:16 AM COPYRIGHT CLERK Respiratory Rate 16 06/07/2024 7:16 AM COPYRIGHT CLERK Oxygen Saturation 100% 06/07/2024 7:16 AM COPYRIGHT CLERK Inhaled Oxygen Concentration - - Weight 81.8 kg (180 lb 6.4 oz) 05/26/2024 12:31 AM COPYRIGHT CLERK Height 185.4 cm (6' 1) 05/26/2024 12:31 AM COPYRIGHT CLERK Body Mass Index 23.8 05/26/2024 12:31 AM COPYRIGHT CLERK Plan of Treatment Health Maintenance Due Date [...] patient's age to complete this topic Insurance [facility] MEDICARE [facility] MEDICARE Advance Directives Documents on File Type Date Recorded Patient Head Of Human Resources Expl anation Adv Directive/Living Will/POA 06/10/2024 11:00 AM * Full Code (Latest Code Status on File) Date Activated Date Inactivated Comments 05/26/2024 12:32 AM 06/07/2024 11:36 AM Care Teams Inorganic Chemist Relationship Specialty Start Date End Date Ruslan Herman DO [address] [place] [address] PCP - General 12/30/20
[2025-03-31 16:13] VITALS: O2SAT 96
--- NOTE | 2025-03-31 17:19 | PM.IMHP ---
H&P: HPI History of Present Illness Date/Time: 03/31/25 17:19 Chief Complaint: Abdominal Pain Narrative: 80 y/o M with PMH of dementia, DVT/PE on chronic anticoagulation, BPH, hypertension, GERD, anxiety, depression, and diabetes presents here with abdominal pain. The patient presents here [facility] on [facility] for further evaluation of abdominal pain. He reports onset of lower abdominal pain on Anant, 03/28. He describes the abdominal pain as crampy, nonradiating, constant, no aggravating factors, and alleviated by urination. He reports associated abdominal bloating, difficulty urinating, belching, and constipation. Last BM 4-5 days ago. He reports he has still been able to pass gas intermittently. He denies associated nausea, vomiting, fever, chills, or body aches. He has been taking MiraLax daily without improvement. He has a past medical history significant for bowel obstructions (last occurrence around 1 year ago, treated conservatively), denies previous abdominal surgery. His ED workup was significant for a fecal impaction and significant lymphadenopathy on CT. He denies previous history of lymphoma, cancer, night sweats, weight loss, fatigue, or itchy skin. Initial VS at presentation: 99.3? F, HR 88, R 20, 135/75, and 96% on RA. ED workup showed: WBC 20.7, hemoglobin 11.3 (12.0 in 2023), creatinine 1.3 and GFR 53, lactic 0.8, lipase 19, he no transaminitis. UA showed a high specific gravity, otherwise unremarkable. CT of the abdomen/pelvis showed lymphadenopathy detailed above concerning for lymphoma, and fecal impaction with mild probable proctitis. Review of Systems Review of Systems: All systems reviewed & are unremarkable except as noted in HPI and below PMFSH Past Medical History Medical History (Updated 03/31/25 @ 17:53 by Anel Anderson, KENYETTA) Lewy body dementia Benign prostatic hyperplasia History of colon polyps Gastroesophageal reflux disease without esophagitis History of deep vein thrombosis (DVT) of lower extremity Chronic anticoagulation History of pulmonary embolism Hypertension Memory loss Type 2 diabetes mellitus with diabetic polyneuropathy, without long-term current use of insulin Allergies Anxiety Arthritis Depression Remote history of suicide attempt. Previously treated with ECT. Surgical History Surgical History (Updated 03/31/25 @ 17:32 by Anel Anderson APRN) Presence of vena cava filter Implanted on 11/23/2011. History of decompression of ulnar nerve Family History Family History Sibling Patient's sister is in good health Father Cerebrovascular accident Family history of throat cancer Patient's father is Mother Patient's mother is Acute myocardial infarction Social History Social History Social History: Code status: Full code. He designates his as his surrogate decision maker. Smoking status: Former smoker Tobacco type: cigarettes and cigars Second hand tobacco smoke exposure: Yes Alcohol intake: never Substance use: never Substance use type: does not use Do You Feel Safe in your Home?: Yes Lack of Transportation: YES Lack of Food: Sometimes True Current Housing: I Have Housing Concerned About Future Housing: Decline to Answer Difficulty Paying Gas/Electric Bills: Decline to Answer Difficulty Paying for Meds: YES Currently Unemployed: No Education: Master's Degree or Higher Difficulty w/ Childcare or Family Care: No Living arrangements: with family Additional living arrangements comments: The patient lives with his . 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 Gender identity (if verbalized by the patient): Male Sexual Orientation (if Verbalized by the Patient): Straight or Heterosexual Spiritual care concerns: No Agree to blood products: Yes Meds Home Medications and Allergies Home Medications ?Medication ?Instructions ?Recorded ?Confirmed ?Type fluticasone propionate 50 2 spray intranasal DAILY #16 grams 10/30/23 03/31/25 Rx mcg/actuation nasal spray,suspension ketoconazole 2 % shampoo See Rx Instructions .Route 04/24/24 03/31/25 Rx .COMPLEX #120 mL polyethylene glycol 3350 17 gram 17 g PO DAILY #100 ea 06/12/24 03/31/25 Rx oral powder packet (Miralax) bupropion HCl 150 mg 24 hr tablet, 150 mg PO QAM #30 tabs 06/25/24 03/31/25 Rx extended release apixaban 5 mg tablet (Eliquis) 5 mg PO Q12H 12/10/24 03/31/25 History ascorbic acid (vitamin C) 1,000 mg 1 g PO DAILY 03/31/25 03/31/25 History capsule cholecalciferol (vitamin D3) 250 250 mcg PO DAILY 03/31/25 03/31/25 History mcg (10,000 unit) capsule Allergies Allergy/AdvReac Type Severity Reaction Status Date / Time No Known Allergies Allergy Verified 03/31/25 11:28 Vital Signs Vital Signs - 24 hr 03/31/25 11:37 03/31/25 16:13 Temperature 99.3 F Pulse Rate 88 Respiratory Rate 20 Blood Pressure 135/75 Pulse Oximetry 88 L 96 Oxygen Delivery Room Air Exam Const: General: comfortable and no acute distress Other: , male, elderly, nontoxic appearance HENMT: Face/Nose/Sinus: Normal nares present Mouth: Yes moist mucous membranes Eyes: General: appearance normal, both eyes and all related structures Sclera: sclerae normal Pupils: Equal, round and reactive pupils present EOM: EOMs intact bilaterally Resp: Effort & Inspection: normal respiratory effort Auscultation: clear to auscultation bilaterally Cardio: Rate: regular rate Rhythm: regular rhythm Other: S1-S2 present without murmur, rub, ectopy GI: Other: Abdomen rounded but soft, minimal distension. Hyperactive bowel sounds in all quadrants. No tenderness on exam. Skin: General skin exam: normal color and no rashes or lesions noted Wounds: no wounds Neuro: Speech: normal speech Motor exam (neuro): 5/5 motor strength present throughout Sensory Exam: normal sensation Other: A&O x4 Extrem: General: normal to inspection Psych: Mental Status: mental status grossly normal Affect: normal affect Other: Good insight and judgment, pleasant H&P: Results Labs Labs: Short CBC 03/31/25 Range/Units 13:47 WBC 20.7 H (4.5-10.0) K/mm3 Hgb 11.3 L (14.0-18.0) g/dL Hct 35.8 L (42.0-52.0) % Plt Count 182 (150-375) k/mm3 BMP 03/31/25 03/31/25 13:47 13:56 Sodium 140 Potassium 4.5 Chloride 105 Carbon Dioxide 24 BUN 23 H Creatinine 1.19 1.30 Glucose 103 Calcium 9.1 Liver Function 03/31/25 Range/Units 13:47 Total Bilirubin 0.9 (0.2-1.3) mg/dL AST 33 (17-59) U/L ALT 18 (6-50) U/L Alkaline Phosphatase 74 (38-126) U/L Albumin 4.5 (3.5-5.1) g/dL Urine 03/31/25 Range/Units 14:23 Urine Color Yellow (Yellow) Urine Appearance Clear (Clear) Urine pH 5.0 (5.0-9.0) Ur Specific [place] 1.038 H (1.001-1.035) Urine Protein Negative (Negative) mg/dL Urine Glucose (UA) Negative (Negative) mg/dL Assessment and Plan Assessment and plan (1) Intra-abdominal lymphadenopathy: Code(s): R59.0 - Localized enlarged lymph nodes Status: Acute Assessment and Plan: - CT abdomen/pelvis: 1. Lymphadenopathy detailed above concerning for lymphoma. Tissue sampling recommended. >>There are multiple enlarged lymph nodes in the gastrohepatic ligament, peripancreatic space and retroperitoneum the largest in the left retroperitoneum para-aortic space 3.5 x 3 cm. There are enlarged lymph nodes within the mesentery the largest 4 x 6 cm. 2. Fecal impaction with mild probable proctitis - oncology consulted - CT biopsy ordered, hold Eliquis and resume when appropriate (2) Fecal impaction: Code(s): K56.41 - Fecal impaction Status: Acute Assessment and Plan: - CT showed fecal impaction with mild probable proctitis - did not resolve with daily MiraLax, however will continue - manually disimpacted in the ED on 03/31 - add docusate b.i.d. scheduled - trial soap familia enema on 03/31 -> reports he was able to produce a small BM and abdominal pain has improved - IV fluids: LR 150 mL/hour x1 L - reported difficulty urinating, does have history of BPH. Likely related to BPH history and current fecal impaction. UA showed no indicators of infection. Bladder scan p.r.n.. (3) Leukocytosis: Qualifiers: Leukocytosis type: lymphocytosis Qualified Code(s): D72.820 - Lymphocytosis (symptomatic) Code(s): D72.829 - Elevated white blood cell count, unspecified Status: Acute Assessment and Plan: - WBC 20.7 upon admission - could be related to suspected lymphoma/hematological malignancy - oncology/hematology consulted - UA showed no indication of UTI - CT of the abd/pelvis showed possible proctitis, likely related to acute fecal impaction - check CXR >> no acute cardiopulmonary findings - monitor (4) Type 2 diabetes mellitus with diabetic polyneuropathy, without long-term current use of insulin: Code(s): E11.42 - Type 2 diabetes mellitus with diabetic polyneuropathy Status: Chronic Assessment and Plan: - stable, glucose 103 upon admission - hypoglycemia protocol - POC blood glucose ACHS - no home medications listed - correct regimen ordered - moderate dose TIDWM, based off BMI - A1C 6.5% in 2023, update (5) Hypertension: Qualifiers: Hypertension type: primary hypertension Qualified Code(s): I10 - Essential (primary) hypertension Code(s): I10 - Essential (primary) hypertension Status: Chronic Assessment and Plan: - chronic, currently 135/75, stable. - not currently on a daily antihypertensive - monitor (6) Benign prostatic hyperplasia: Qualifiers: Lower urinary tract symptom detail: urinary hesitancy Lower urinary tract symptom presence: symptoms present Qualified Code(s): N40.1 - Benign prostatic hyperplasia with lower urinary tract symptoms; R39.11 - Hesitancy of micturition Code(s): N40.0 - Benign prostatic hyperplasia without lower urinary tract symptoms Status: Chronic Assessment and Plan: - history of BPH, currently reporting difficulty urinating but sometimes has near urinary incontinence. difficulty urinating likely exacerbated by fecal impaction. - start Flomax, monitor toleration Plan Diet: Regular, NPO at midnight GI Prophylaxis: N/a DVT Prophylaxis: Hold Eliquis for biopsy, SCDs IV fluids: LR 150 mL/hour x1 L Lines/Tubes: Peripheral IV Code Status: Full code Quality VTE Prophylaxis VTE prophylaxis: mechanical ordered Hospitalist [facility] Advance Care Plan I have confirmed that the patient's Advanced Care Plan is present, code status is documented, or surrogate decision maker is listed in patient medical record.: Yes Medication Reconciliation I have utilized all available resources to obtain, update and review the patients current medications (includes all prescriptions, OTC, herbals, cannabis, and nutritional supplements).: Yes
[2025-03-31 18:04] VITALS: BMI 26.0
[2025-03-31 18:31] VITALS: BP 170/67; PULSE 65; RESP 18; TEMP 36.4; O2SAT 98; BMI 25.4
[2025-03-31] MEDS: DOCUSATE SODIUM 100 MG CAPSULE PO (20:03)
[2025-03-31] MEDS: LACTATED RINGERS 1,000 ML 150 ML IV CONT (20:07)
[2025-03-31 22:00] VITALS: BP 154/68; PULSE 67; RESP 14; TEMP 36.6; O2SAT 100
[2025-04-01 05:18] LABS: Hematocrit 30.2 % (42.0-52.0); Hemoglobin 9.6 g/dL (14.0-18.0); Immature Granulocyte Percent A 0.2 % (0-0.5); Lymphocytes Absolute Auto 13.45 K/mm3 (0.9-3.2); Mean Corpuscular HGB Conc 31.8 g/dl (32-36); Mean Corpuscular Hemoglobin 33.6 pg (26-34); Mean Corpuscular Volume 105.6 fl (80-100); Nucleated Red Blood Cells Absolute Auto 0.000 K/mm3 (0.0-0.012); Nucleated Red Blood Cells Perc 0.0 % (0.0-0.2); Platelet Count Result 156 k/mm3 (150-375); Red Blood Count 2.86 M/mm3 (4.6-6.20); White Blood Count 17.1 K/mm3 (4.5-10.0)
[2025-04-01 05:31] LABS: INR 1.2; Prothrombin Time 15.2 Seconds (11.1-14.7)
[2025-04-01 05:32] LABS: Hemoglobin A1C 6.2 % (<5.7); Partial Thromboplastin Time 29.1 Seconds (22.3-36.8)
[2025-04-01 05:37] VITALS: BP 135/67; PULSE 64; RESP 18; TEMP 36.7; O2SAT 96
[2025-04-01 05:38] LABS: Anion Gap 6 mmol/L (4-12); Blood Urea Nitrogen 20 mg/dL (9-20); Calcium 8.6 mg/dL (8.4-10.2); Carbon Dioxide 25 mmol/L (22-30); Chloride 107 mmol/L (98-107); Estimated CRCL calculation 49 ml/min; Estimated Glomerular Filt Rate > 60; Glucose 87 mg/dL (65-110); Potassium 4.0 mmol/L (3.4-5.0); Sodium 138 mmol/L (137-145)
--- NOTE | 2025-04-01 07:34 | P.PNIM_ITS ---
Progress Note: A&P Assessment and Plan (1) Intra-abdominal lymphadenopathy: Code(s): R59.0 - Localized enlarged lymph nodes Status: Acute Assessment and Plan: - CT abdomen/pelvis: 1. Lymphadenopathy detailed above concerning for lymphoma. Tissue sampling recommended. >>There are multiple enlarged lymph nodes in the gastrohepatic ligament, peripancreatic space and retroperitoneum the largest in the left retroperitoneum para-aortic space 3.5 x 3 cm. There are enlarged lymph nodes within the mesentery the largest 4 x 6 cm. 2. Fecal impaction with mild probable proctitis - oncology consulted - CT biopsy ordered, hold Eliquis and resume when appropriate. Planning for biopsy tomorrow. NPO at midnight. (2) Fecal impaction: Code(s): K56.41 - Fecal impaction Status: Acute Assessment and Plan: - CT showed fecal impaction with mild probable proctitis - manually disimpacted in the ED on 03/31 - s/p manual disimpaction and soap suds enema in ED with multiple bowel movements. Pain resolved. - s/p IV fluids - continue Miralax, senna (3) Leukocytosis: Qualifiers: Leukocytosis type: lymphocytosis Qualified Code(s): D72.820 - Lymphocytosis (symptomatic) Code(s): D72.829 - Elevated white blood cell count, unspecified Status: Acute Assessment and Plan: - WBC 20.7 upon admission - could be related to suspected lymphoma/hematological malignancy - UA showed no indication of UTI - CXR no acute process - CT of the abd/pelvis showed possible proctitis, likely related to acute fecal impaction - WBC improved. Do not feel antibiotics warranted at this time. - monitor CBC - oncology/hematology consulted (4) Type 2 diabetes mellitus with diabetic polyneuropathy, without long-term current use of insulin: Code(s): E11.42 - Type 2 diabetes mellitus with diabetic polyneuropathy Status: Chronic Assessment and Plan: - hemoglobin a1c 6.2 - stable, glucose 103 upon admission - hypoglycemia protocol - POC blood glucose ACHS - no home medications listed - continue low dose SSI - A1C 6.5% in 2023, update (5) Hypertension: Qualifiers: Hypertension type: primary hypertension Qualified Code(s): I10 - E ssential (primary) hypertension Code(s): I10 - Essential (primary) hypertension Status: Chronic Assessment and Plan: - chronic, currently 135/75, stable. - not currently on a daily antihypertensive - monitor (6) Benign prostatic hyperplasia: Qualifiers: Lower urinary tract symptom detail: urinary hesitancy Lower urinary tract symptom presence: symptoms present Qualified Code(s): N40.1 - Benign prostatic hyperplasia with lower urinary tract symptoms; R39.11 - Hesitancy of micturition Code(s): N40.0 - Benign prostatic hyperplasia without lower urinary tract symptoms Status: Chronic Assessment and Plan: - history of BPH, currently reporting difficulty urinating but sometimes has near urinary incontinence. difficulty urinating likely exacerbated by fecal impaction. - start Flomax, monitor toleration - bladder scan PRN Plan DVT Prophylaxis: Hold Eliquis for biopsy, SCDs Code Status: Full code Subjective Date/time seen: 04/01/25 07:34 Interval history: 80 y/o M with PMH of dementia, DVT/PE on chronic anticoagulation, BPH, hypertension, GERD, anxiety, depression, and diabetes presents here with abdominal pain. Patient seen and examined at bedside. Patient reports he had multiple bowel movements yesterday and abdominal pain improved. Agreeable to lymphnode biopsy. Review of Systems Review of Systems: All systems reviewed & are unremarkable except as noted in HPI and below Exam Narrative: General: NAD Eyes: EOMI ENT: neck supple Cardiovascular: Regular rate and rhythm Respiratory: Clear to auscultation, respirations even and unlabored on RA Gastrointestinal: Soft, non tender, bowel sounds active Genitourinary: no suprapubic tenderness Musculoskeletal: No edema Skin: warm, dry Neuro: Alert. Psych: Mood appropriate Objective Data Vital Signs Vital Signs: Vital Signs - 24 hr 03/31/25 11:37 03/31/25 16:13 03/31/25 18:31 Temperature 99.3 F 97.6 F Pulse Rate 88 65 Respiratory Rate 20 18 Blood Pressure 135/75 170/67 H Pulse Oximetry 88 L 96 98 Oxygen Delivery Room Air 03/31/25 18:45 03/31/25 20:00 03/31/25 22:00 Temperature 97.8 F Pulse Rate 67 Respiratory Rate 14 Blood Pressure 154/68 H Pulse Oximetry 100 Oxygen Delivery Room Air Room Air 04/01/25 05:37 Temperature 98.0 F Pulse Rate 64 Respiratory Rate 18 Blood Pressure 135/67 Pulse Oximetry 96 Oxygen Delivery Intake/Output Intake/Output: Intake & Output 09/20/25 03/30/25 03/31/25 04/01/25 23:59 23:59 23:59 23:59 Intake Total 1100 Output Total 1100 Balance 0 Meds/Results Medications: Active Medications Generic Name Dose Route Start Last Admin Trade Name Freq PRN Reason Stop Dose Admin Acetaminophen 650 mg 03/31/25 17:54 Acetaminophen 325 Mg Tablet PO Q6H PRN Mild Pain (1-3) or Fever Ascorbic Acid 1,000 mg 04/01/25 09:00 Ascorbic Acid 500 Mg Tablet PO QAM [facility] Bupropion HCl 150 mg 04/01/25 09:00 Bupropion Hcl Xl (24 Hr) 150 Mg Tabcr PO QAM GUSTAVO Dextrose 12.5 gm 03/31/25 17:36 Dextrose 50% 25 Gm/50 Ml Syringe IV PUSH PRN PRN Hypoglycemia Protocol Docusate Sodium 100 mg 03/31/25 21:00 03/31/25 20:03 Docusate Sodium 100 Mg Capsule PO 100 mg Q12HR GUSTAVO Administration Fluticasone Propionate 2 spray 04/01/25 09:00 Fluticasone Propionate 0.05% Na Spr 16 Gm Btl (*Bkc) NASAL DAILY GUSTAVO Glucagon 1 mg 03/31/25 17:36 Glucagon For Inj 1 Mg Vial IM PRN PRN Hypoglycemia Protocol Glucose 15 gm 03/31/25 17:36 Glucose Oral Gel 15 Gm Of Glucse In 37.5 Gm Tube PO PRN PRN Hypoglycemia Protocol Dextrose 1,000 mls @ 100 mls/hr 03/31/25 17:36 Dextrose 5% 1,000 Ml IVPB PRN PRN Hypoglycemia Protocol Insulin Aspart 3 - 6 units 04/01/25 08:00 Insulin Aspart (*Bkc) 100 Units/Ml SUB-Q TIDWM [facility] Protocol Miscellaneous Information 1 each 03/31/25 00:01 Ketoconazole 2 % Shampoo - What 2 Days Of The Week Does Patient Apply? XX 04/30/25 00:00 CLARIFY [facility] Non-Formulary Medication 0 applic 03/31/25 21:15 Ketoconazole .ROUTE 04/30/25 21:14 .COMPLEX GUSTAVO Ondansetron HCl 4 mg 03/31/25 17:54 Ondansetron Hcl Odt 4 Mg Tablet PO Q6H PRN Nausea And Vomiting Polyethylene Glycol 17 gm 04/01/25 09:00 Polyethylene Glycol 3350 17 Gm Powd.Pack PO QAM [facility] Tamsulosin HCl 0.4 mg 04/01/25 09:00 Tamsulosin Hcl 0.4 Mg Capsule PO QAM [facility] Vitamin D 250 mcg 04/01/25 09:00 Cholecalciferol (Vitamin D3) 125 Mcg (5,000 Units) Tablet PO DAILY [facility] Radiology Results: ITS Impressions Abdomen/Pelvis CT 03/31/25 14:08 IMPRESSION: 1. Lymphadenopathy detailed above concerning for lymphoma. Tissue sampling recommended. 2. Fecal impaction with mild probable proctitis Chest X-Ray 03/31/25 19:46 IMPRESSION: 1. No acute cardiopulmonary findings. Labs Labs: Laboratory Results - last 24 hr 03/31/25 03/31/25 03/31/25 13:47 13:56 14:23 WBC 20.7 H RBC 3.37 L Hgb 11.3 L Hct 35.8 L MCV 106.2 H MCH 33.5 MCHC 31.6 L RDW 14.3 Plt Count 182 MPV 9.1 Immature Gran % (Auto) 0.1 Neut % (Auto) 11.9 L Lymph % (Auto) 77.1 H [place] % (Auto) 10.3 H Eos % (Auto) 0.4 Baso % (Auto) 0.2 Lymph # (Auto) 15.95 H [place] # (Auto) 2.1 H Eos # (Auto) 0.1 Baso # (Auto) 0.1 Abs Immat Gran (auto) 0.03 Absolute Neuts (auto) 2.4 Absolute Nucleated RBC 0.000 Nucleated RBC % 0.0 PT INR APTT Sodium 140 Potassium 4.5 Chloride 105 Carbon Dioxide 24 Anion Gap 11 BUN 23 H Creatinine 1.19 1.30 Estim Creat Clear Calc 45 42 Estimated GFR 59 53 L Glucose 103 POC Capillary Glucose Hemoglobin A1c Lactic Acid 0.8 Calcium 9.1 Total Bilirubin 0.9 AST 33 ALT 18 Alkaline Phosphatase 74 Total Protein 8.0 Albumin 4.5 Lipase 19 L Urine Color Yellow Urine Appearance Clear Urine pH 5.0 Ur Specific [place] 1.038 H Urine Protein Negative Urine Glucose (UA) Negative Urine Ketones Negative Ur Blood (Man) Negative Urine Nitrate Negative Urine Bilirubin Negative Urine Urobilinogen 0.2 Leukocyte Esterase Rfl Negative 03/31/25 04/01/25 04/01/25 19:51 05:10 06:39 WBC 17.1 H RBC 2.86 L Hgb 9.6 L Hct 30.2 L MCV 105.6 H MCH 33.6 MCHC 31.8 L RDW 13.8 Plt Count 156 MPV 8.9 Immature Gran % (Auto) 0.2 Neut % (Auto) 10.7 L Lymph % (Auto) 78.8 H [place] % (Auto) 9.7 H Eos % (Auto) 0.4 Baso % (Auto) 0.2 Lymph # (Auto) 13.45 H [place] # (Auto) 1.7 H Eos # (Auto) 0.1 Baso # (Auto) 0.0 Abs Immat Gran (auto) 0.04 H Absolute Neuts (auto) 1.8 Absolute Nucleated RBC 0.000 Nucleated RBC % 0.0 PT 15.2 H INR 1.2 APTT 29.1 Sodium 138 Potassium 4.0 Chloride 107 Carbon Dioxide 25 Anion Gap 6 BUN 20 Creatinine 1.10 Estim Creat Clear Calc 49 Estimated GFR > 60 Glucose 87 POC Capillary Glucose 128 H 85 Hemoglobin A1c 6.2 H Lactic Acid Calcium 8.6 Total Bilirubin AST ALT Alkaline Phosphatase Total Protein Albumin Lipase Urine Color Urine Appearance Urine pH Ur Specific [place] Urine Protein Urine Glucose (UA) Urine Ketones Ur Blood (Man) Urine Nitrate Urine Bilirubin Urine Urobilinogen Leukocyte Esterase Rfl Quality VTE Prophylaxis VTE prophylaxis: mechanical ordered
[2025-04-01] MEDS: FLUTICASONE PROPIONATE 0.05% NA SPR 16 GM BTL (*BKC) 2 SPRAY NASAL (09:49)
[2025-04-01 13:50] VITALS: BP 135/66; PULSE 72; RESP 16; TEMP 36.2; O2SAT 100
--- NOTE | 2025-04-01 18:37 | WPDONCCN ---
Assessment and Plan Assessment and plan (1) Intra-abdominal lymphadenopathy: Code(s): R59.0 - Localized enlarged lymph nodes Status: Acute Assessment and Plan: Generalized lymphadenopathy. Patient is the 80-year-old male without any history of malignancy and lymphoma came into the hospital with abdominal pain along with constipation. Denies any B symptoms including night sweats fever chills and weight loss. CT scan finding showed multiple enlarged lymph node in the gastrohepatic ligament, peripancreatic space and retroperitoneum. Spleen was normal. There was hepatic steatosis. On my examination there is the left-sided neck lymphadenopathy and left axillary lymphadenopathy. Labs showed anemia with elevated WBC count. These findings are consistent with lymphoma. I would suggest biopsy of the neck lymph node about the left axilla which would be easy to access. I will also order workup for anemia. Will also order flow cytometry for lymphoma along with LDH. I have provided him my office information for follow-up. I have answered all the questions the patient and the satisfaction. HPI Data of Consult Date/Time: 04/01/25 18:37 Requesting Physician: Jay Cm MD Primary Care Provider: Emilie Palomares APRN Consult Narrative Narrative: Shimon Patterson is a 80 year old male with history of diabetes, hypertension, GERD, DVT and PE on chronic anticoagulation came into the hospital with abdominal discomfort. He has last bowel movement about 4-5 days ago. Denies any nausea vomiting fevers and chills. Denies any night sweats. He denies any weight loss. Patient has no previous history of lymphoma or any other malignancy. CT scan abdomen and pelvis showed lymphadenopathy in the gastrohepatic ligament, peripancreatic space and retroperitoneum. Left retroperitoneum para-aortic lymph node was 3.5 x 3 cm. There was also enlarged lymph node in the mesentery. Liver showed hepatic steatosis. Spleen was unremarkable. Labs showed elevated WBC count of 17.1 with hemoglobin of 9.6. Denies any other complaints. Review of Systems Review of Systems: Twelve point review of system was reviewed [facility] Past Medical History Medical History (Updated 03/31/25 @ 17:53 by Anel Anderson APRN) Lewy body dementia Benign prostatic hyperplasia History of colon polyps Gastroesophageal reflux disease without esophagitis History of deep vein thrombosis (DVT) of lower extremity Chronic anticoagulation History of pulmonary embolism Hypertension Memory loss Type 2 diabetes mellitus with diabetic polyneuropathy, without long-term current use of insulin Allergies Anxiety Arthritis Depression Remote history of suicide attempt. Previously treated with ECT. Surgical History Surgical History (Updated 03/31/25 @ 17:32 by Anel Anderson APRN) Presence of vena cava filter Implanted on 11/23/2011. History of decompression of ulnar nerve Family History Family History Sibling Patient's sister is in good health Father Cerebrovascular accident Family history of throat cancer Patient's father is Mother Patient's mother is Acute myocardial infarction Social History Social History Social History: Code status: Full code. He designates his as his surrogate decision maker. Smoking status: Former smoker Tobacco type: cigarettes and cigars Second hand tobacco smoke exposure: Yes Alcohol intake: never Substance use: never Substance use type: does not use Do You Feel Safe in your Home?: Yes Lack of Transportation: YES Lack of Food: Sometimes True Current Housing: I Have Housing Concerned About Future Housing: Decline to Answer Difficulty Paying Gas/Electric Bills: Decline to Answer Difficulty Paying for Meds: YES Currently Unemployed: No Education: Master's Degree or Higher Difficulty w/ Childcare or Family Care: No Living arrangements: with family Additional living arrangements comments: The patient lives with his . 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 Gender identity (if verbalized by the patient): Male Sexual Orientation (if Verbalized by the Patient): Straight or Heterosexual Spiritual care concerns: No Agree to blood products: Yes Meds Home Medications and Allergies Home Medications ?Medication ?Instructions ?Recorded ?Confirmed ?Type fluticasone propionate 50 2 spray intranasal DAILY #16 grams 10/30/23 03/31/25 Rx mcg/actuation nasal spray,suspension ketoconazole 2 % shampoo See Rx Instructions .Route 04/24/24 03/31/25 Rx .COMPLEX #120 mL polyethylene glycol 3350 17 gram 17 g PO DAILY #100 ea 06/12/24 03/31/25 Rx oral powder packet (Miralax) bupropion HCl 150 mg 24 hr tablet, 150 mg PO QAM #30 tabs 06/25/24 03/31/25 Rx extended release apixaban 5 mg tablet (Eliquis) 5 mg PO Q12H 12/10/24 03/31/25 History ascorbic acid (vitamin C) 1,000 mg 1 g PO DAILY 03/31/25 03/31/25 History capsule cholecalciferol (vitamin D3) 250 250 mcg PO DAILY 03/31/25 03/31/25 History mcg (10,000 unit) capsule Allergies Allergy/AdvReac Type Severity Reaction Status Date / Time No Known Allergies Allergy Verified 03/31/25 11:28 Vital Signs Vital Signs - 24 hr 03/31/25 18:45 03/31/25 20:00 03/31/25 22:00 Temperature 36.6 C Pulse Rate 67 Respiratory Rate 14 Blood Pressure 154/68 H Pulse Oximetry 100 Oxygen Delivery Room Air Room Air 04/01/25 05:37 04/01/25 13:50 Temperature 36.7 C 36.2 C L Pulse Rate 64 72 Respiratory Rate 18 16 Blood Pressure 135/67 135/66 Pulse Oximetry 96 100 Oxygen Delivery Exam Narrative: Lungs are clear to auscultation bilateral Cardiovascular regular rate rhythm no murmurs Abdomen soft nontender nondistended Extremities no edema Neck with palpable lymphadenopathy. There is also palpable lymphadenopathy in the left axilla Results Labs 04/01/25 05:10 04/01/25 05:10 Labs: Short CBC 04/01/25 Range/Units 05:10 WBC 17.1 H (4.5-10.0) K/mm3 Hgb 9.6 L (14.0-18.0) g/dL Hct 30.2 L (42.0-52.0) % Plt Count 156 (150-375) k/mm3 BMP 04/01/25 05:10 Sodium 138 Potassium 4.0 Chloride 107 Carbon Dioxide 25 BUN 20 Creatinine 1.10 Glucose 87 Calcium 8.6
[2025-04-01] MEDS: DOCUSATE SODIUM 100 MG CAPSULE PO (20:28)
[2025-04-01 20:42] LABS: Iron 99 ug/dL (49-181)
[2025-04-01 20:51] LABS: Percent Iron Saturation 34 % (20-50)
[2025-04-01 21:15] VITALS: BP 134/64; PULSE 64; RESP 18; TEMP 37.3; O2SAT 98
[2025-04-01 21:20] LABS: Ferritin 98.90 ng/mL (11.1-264)
[2025-04-01 23:58] LABS: Vitamin B12 216.0 pg/mL (239-931)
--- NOTE | 2025-04-02 | CONSULT_PTH ---
PATIENT: Shimon Patterson LOC: [id number] U#:[id number] AGE/SX: 80/M ROOM: 306 RE03/31/[address]: Catracho Mayer MD : 1945 BED: 01 DIS: 04/03/2025 SPEC #: [id number] RECD: 04/02/25 08:45 STATUS: JEANIE REQ #: [id number] MANA: 04/02/25 00:[address]: Jay Cm DEPT: [facility] Consult RECD BY: Soraida Agrawal MLT ENTERED: 04/02/25 08:46 SP TYPE: Consult OTHR DR: MD Nir Reaves PAHALEY Drake, KENYETTA Tissues: A - Peripheral Smear Procedures: Hematology Consult
[2025-04-02 05:05] VITALS: BP 138/66; PULSE 64; RESP 16; TEMP 36.8; O2SAT 97
[2025-04-02 06:28] LABS: Hematocrit 30.4 % (42.0-52.0); Hemoglobin 9.7 g/dL (14.0-18.0); Mean Corpuscular HGB Conc 31.9 g/dl (32-36); Mean Corpuscular Hemoglobin 33.7 pg (26-34); Mean Corpuscular Volume 105.6 fl (80-100); Platelet Count Result 153 k/mm3 (150-375); Red Blood Count 2.88 M/mm3 (4.6-6.20); White Blood Count 16.9 K/mm3 (4.5-10.0)
[2025-04-02 06:50] LABS: Anion Gap 6 mmol/L (4-12); Blood Urea Nitrogen 20 mg/dL (9-20); Calcium 8.5 mg/dL (8.4-10.2); Carbon Dioxide 24 mmol/L (22-30); Chloride 107 mmol/L (98-107); Estimated CRCL calculation 49 ml/min; Estimated Glomerular Filt Rate > 60; Glucose 89 mg/dL (65-110); Potassium 3.8 mmol/L (3.4-5.0); Sodium 137 mmol/L (137-145)
[2025-04-02 07:32] LABS: Smudge Cells PRESENT
[2025-04-02 07:33] LABS: Band Neutrophils Percent 1 % (0-6); Lymphocytes Absolute Manual 14.36 K/mm3 (1.1-4.5); Lymphocytes Percent Manual 85 % (18-44); Macrocytosis 1+ (NORMAL); Monocytes Absolute Manual 0.16 K/mm3 (0.1-0.90); Monocytes Percent Manual 1 % (3-9); Neutrophils Absolute Manual 2.19 K/mm3 (1.3-6.7); Neutrophils Percent Manual 12 % (46-73); Schistocytes None Seen; Total Cells Counted 100
--- NOTE | 2025-04-02 07:40 | P.PNIM_ITS ---
Progress Note: A&P Assessment and Plan (1) Intra-abdominal lymphadenopathy: Code(s): R59.0 - Localized enlarged lymph nodes Status: Acute Assessment and Plan: * CT abdomen/pelvis: * Lymphadenopathy detailed above concerning for lymphoma. Tissue sampling recommended. * There are multiple enlarged lymph nodes in the gastrohepatic ligament, peripancreatic space and retroperitoneum the largest in the left retrop eritoneum para-aortic space 3.5 x 3 cm. There are enlarged lymph nodes within the mesentery the largest 4 x 6 cm. * Fecal impaction with mild probable proctitis * Oncology consulted * Ultrasound-guided lymph node biopsy today (2) Fecal impaction: Code(s): K56.41 - Fecal impaction Status: Acute Assessment and Plan: * CT showed fecal impaction with mild probable proctitis * manually disimpacted in the ED on 03/31 * S/p manual disimpaction and soap suds enema in ED with multiple bowel movements. Pain resolved. * S/p IV fluids * Continue Miralax, senna (3) Leukocytosis: Qualifiers: Leukocytosis type: lymphocytosis Qualified Code(s): D72.820 - Lymphocytosis (symptomatic) Code(s): D72.829 - Elevated white blood cell count, unspecified Status: Acute Assessment and Plan: * WBC 20.7 upon admission * could be related to suspected lymphoma/hematological malignancy * UA showed no indication of UTI * CXR no acute process * CT of the abd/pelvis showed possible proctitis, likely related to acute fecal impaction * WBC improved. Do not feel antibiotics warranted at this time. * Monitor CBC * Oncology/hematology consulted * WBC 16.9, down from 17.1 yesterday (4) Type 2 diabetes mellitus with diabetic polyneuropathy, without long-term current use of insulin: Code(s): E11.42 - Type 2 diabetes mellitus with diabetic polyneuropathy Status: Chronic Assessment and Plan: * Hemoglobin a1c 6.2 * Stable, glucose 103 upon admission * Hypoglycemia protocol * POC blood glucose ACHS * No home medications listed * Continue low dose SSI * A1C 6.5% in 2023, update (5) Hypertension: Qualifiers: Hypertension type: primary hypertension Qualified Code(s): I10 - Essential (primary) hypertension Code(s): I10 - Essential (primary) hypertension Status: Chronic Assessment and Plan: * Chronic, currently 135/75, stable. * Not currently on a daily antihypertensive * Monitor (6) Benign prostatic hyperplasia: Qualifiers: Lower urinary tract symptom detail: urinary hesitancy Lower urinary tract symptom presence: symptoms present Qualified Code(s): N40.1 - Benign prostatic hyperplasia with lower urinary tract symptoms; R39.11 - Hesitancy of micturition Code(s): N40.0 - Benign prostatic hyperplasia without lower urinary tract symptoms Status: Chronic Assessment and Plan: * History of BPH, currently reporting difficulty urinating but sometimes has near urinary incontinence. difficulty urinating likely exacerbated by fecal impaction. * Start Flomax, monitor toleration * Bladder scan PRN Plan DVT Prophylaxis: Hold Eliquis for biopsy, SCDs Code Status: Full code Subjective Date/time seen: 04/02/25 07:40 Interval history: 80 y/o M with PMH of dementia, DVT/PE on chronic anticoagulation, BPH, hypert ension, GERD, anxiety, depression, and diabetes presents here with abdominal pain. 04/02/2025 Patient sitting comfortably in bed at time of examination. Denies any chest maria guadalupe n, shortness off breath, nausea/vomiting or abdominal pain at this time. Plan for an ultrasound-guided lymph node biopsy today. Review of Systems Review of Systems: All systems reviewed & are unremarkable except as noted in HPI and below Exam Narrative: General: NAD Eyes: EOMI ENT: neck supple Cardiovascular: Regular rate and rhythm Respiratory: Clear to auscultation, respirations even and unlabored on RA Gastrointestinal: Soft, non tender, bowel sounds active Genitourinary: no suprapubic tenderness Musculoskeletal: No edema Skin: warm, dry Neuro: Alert. Psych: Mood appropriate Const: General: comfortable and no acute distress Other: , male, elderly, nontoxic appearance HENMT: Face/Nose/Sinus: Normal nares present Mouth: Yes moist mucous membranes Eyes: General: appearance normal, both eyes and all related structures Sclera: sclerae normal Pupils: Equal, round and reactive pupils present EOM: EOMs intact bilaterally Resp: Effort & Inspection: normal respiratory effort Auscultation: clear to auscultation bilaterally Cardio: Rate: regular rate Rhythm: regular rhythm Other: S1-S2 present without murmur, rub, ectopy GI: Other: Abdomen rounded but soft, minimal distension. Hyperactive bowel sounds in all quadrants. No tenderness on exam. Skin: General skin exam: normal color and no rashes or lesions noted Wounds: no wounds Neuro: Cranial nerves: Yes Equal, round and reactive pupils present Speech: normal speech Motor exam (neuro): 5/5 motor strength present throughout Sensory Exam: normal sensation Other: A&O x4 Extrem: General: normal to inspection Psych: Mental Status: mental status grossly normal Affect: normal affect Other: Good insight and judgment, pleasant Objective Data Vital Signs Vital Signs: Vital Signs - 24 hr 04/01/25 13:50 04/01/25 20:00 04/01/25 21:15 Temperature 97.1 F L 99.2 F Pulse Rate 72 64 Respiratory Rate 16 18 Blood Pressure 135/66 134/64 Pulse Oximetry 100 98 Oxygen Delivery Room Air 04/02/25 05:05 Temperature 98.2 F Pulse Rate 64 Respiratory Rate 16 Blood Pressure 138/66 Pulse Oximetry 97 Oxygen Delivery Intake/Output Intake/Output: Intake & Output 03/30/25 03/31/25 04/01/25 04/02/25 23:59 23:59 23:59 23:59 Intake Total 1580 Output Total 1650 400 Balance -70 -400 Meds/Results Medications: Active Medications Generic Name Dose Route Start Last Admin Trade Name Freq PRN Reason Stop Dose Admin Acetaminophen 650 mg 03/31/25 17:54 Acetaminophen 325 Mg Tablet PO Q6H PRN Mild Pain (1-3) or Fever Ascorbic Acid 1,000 mg 04/01/25 09:00 04/01/25 09:37 Ascorbic Acid 500 Mg Tablet PO Not Given QAM GUSTAVO Bupropion HCl 150 mg 04/01/25 09:00 04/01/25 09:37 Bupropion Hcl Xl (24 Hr) 150 Mg Tabcr PO Not Given QAM GUSTAVO Dextrose 12.5 gm 03/31/25 17:36 Dextrose 50% 25 Gm/50 Ml Syringe IV PUSH PRN PRN Hypoglycemia Protocol Docusate Sodium 100 mg 03/31/25 21:00 04/01/25 20:28 Docusate Sodium 100 Mg Capsule PO 100 mg Q12HR GUSTAVO Administration Fluticasone Propionate 2 spray 04/01/25 09:00 04/01/25 09:49 Fluticasone Propionate 0.05% Na Spr 16 Gm Btl (*Bkc) NASAL 2 spray DAILY GUSTAVO Administration Glucagon 1 mg 03/31/25 17:36 Glucagon For Inj 1 Mg Vial IM PRN PRN Hypoglycemia Protocol Glucose 15 gm 03/31/25 17:36 Glucose Oral Gel 15 Gm Of Glucse In 37.5 Gm Tube PO PRN PRN Hypoglycemia Protocol Dextrose 1,000 mls @ 100 mls/hr 03/31/25 17:36 Dextrose 5% 1,000 Ml IVPB PRN PRN Hypoglycemia Protocol Insulin Aspart 2 - 5 units 04/01/25 12:00 04/01/25 12:24 Insulin Aspart (*Bkc) 100 Units/Ml SUB-Q Not Given TIDWM [facility] Protocol Miscellaneous Information 1 each 03/31/25 00:01 Ketoconazole 2 % Shampoo - What 2 Days Of The Week Does Patient Apply? XX 04/30/25 00:00 CLARIFY [facility] Non-Formulary Medication 0 applic 03/31/25 21:15 Ketoconazole .ROUTE 04/30/25 21:14 .COMPLEX [facility] Ondansetron HCl 4 mg 03/31/25 17:54 Ondansetron Hcl Odt 4 Mg Tablet PO Q6H PRN Nausea And Vomiting Polyethylene Glycol 17 gm 04/01/25 09:00 04/01/25 09:38 Polyethylene Glycol 3350 17 Gm Powd.Pack PO Not Given QAM [facility] Tamsulosin HCl 0.4 mg 04/01/25 09:00 04/01/25 09:38 Tamsulosin Hcl 0.4 Mg Capsule PO Not Given QAM [facility] Vitamin D 250 mcg 04/01/25 09:00 04/01/25 09:38 Cholecalciferol (Vitamin D3) 125 Mcg (5,000 Units) Tablet PO Not Given DAILY [facility] Radiology Results: ITS Impressions Abdomen/Pelvis CT 03/31/25 14:08 IMPRESSION: 1. Lymphadenopathy detailed above concerning for lymphoma. Tissue sampling recommended. 2. Fecal impaction with mild probable proctitis Chest X-Ray 03/31/25 19:46 IMPRESSION: 1. No acute cardiopulmonary findings. Labs Labs: Laboratory Results - last 24 hr 04/01/25 04/01/25 04/01/25 05:06 05:10 07:34 WBC RBC Hgb Hct MCV MCH MCHC RDW Plt Count MPV Immature Gran % (Auto) Neut % (Auto) Lymph % (Auto) Alpine % (Auto) Eos % (Auto) Baso % (Auto) Lymph # (Auto) Alpine # (Auto) Eos # (Auto) Baso # (Auto) Abs Immat Gran (auto) Absolute Neuts (auto) Absolute Nucleated RBC Total Counted Neutrophils % (Manual) Band Neutrophils % Lymphocytes % (Manual) Monocytes % (Manual) Nucleated RBC % Abs Neuts (Manual) Abs Lymphs (Manual) Abs Monocytes (Manual) Smudge Cells Platelet Estimate Macrocytosis Schistocytes Sodium Potassium Chloride Carbon Dioxide Anion Gap BUN Creatinine Estim Creat Clear Calc Estimated GFR Glucose POC Capillary Glucose 76 Calcium Iron 99 TIBC 289 % Saturation 34 Ferritin 98.90 Lactate Dehydrogenase 186 Vitamin B12 216.0 L Folate 12.6 04/01/25 04/01/25 04/01/25 11:36 16:14 20:45 WBC RBC Hgb Hct MCV MCH MCHC RDW Plt Count MPV Immature Gran % (Auto) Neut % (Auto) Lymph % (Auto) Alpine % (Auto) Eos % (Auto) Baso % (Auto) Lymph # (Auto) Alpine # (Auto) Eos # (Auto) Baso # (Auto) Abs Immat Gran (auto) Absolute Neuts (auto) Absolute Nucleated RBC Total Counted Neutrophils % (Manual) Band Neutrophils % Lymphocytes % (Manual) Monocytes % (Manual) Nucleated RBC % Abs Neuts (Manual) Abs Lymphs (Manual) Abs Monocytes (Manual) Smudge Cells Platelet Estimate Macrocytosis Schistocytes Sodium Potassium Chloride Carbon Dioxide Anion Gap BUN Creatinine Estim Creat Clear Calc Estimated GFR Glucose POC Capillary Glucose 86 142 H 126 H Calcium Iron TIBC % Saturation Ferritin Lactate Dehydrogenase Vitamin B12 Folate 04/02/25 05:53 WBC 16.9 H RBC 2.88 L Hgb 9.7 L Hct 30.4 L MCV 105.6 H MCH 33.7 MCHC 31.9 L RDW 13.9 Plt Count 153 MPV 9.7 Immature Gran % (Auto) Not Reportable Neut % (Auto) Not Reportable Lymph % (Auto) Not Reportable Alpine % (Auto) Not Reportable Eos % (Auto) Not Reportable Baso % (Auto) Not Reportable Lymph # (Auto) Not Reportable Alpine # (Auto) Not Reportable Eos # (Auto) Not Reportable Baso # (Auto) Not Reportable Abs Immat Gran (auto) Not Reportable Absolute Neuts (auto) Not Reportable Absolute Nucleated RBC Not Reportable Total Counted 100 Neutrophils % (Manual) 12 L Band Neutrophils % 1 Lymphocytes % (Manual) 85 H Monocytes % (Manual) 1 L Nucleated RBC % Not Reportable Abs Neuts (Manual) 2.19 Abs Lymphs (Manual) 14.36 H Abs Monocytes (Manual) 0.16 Smudge Cells Present Platelet Estimate Adequate Macrocytosis 1+ Schistocytes None seen Sodium 137 Potassium 3.8 Chloride 107 Carbon Dioxide 24 Anion Gap 6 BUN 20 Creatinine 1.10 Estim Creat Clear Calc 49 Estimated GFR > 60 Glucose 89 POC Capillary Glucose Calcium 8.5 Iron TIBC % Saturation Ferritin Lactate Dehydrogenase Vitamin B12 Folate Quality VTE Prophylaxis VTE prophylaxis: mechanical ordered
[2025-04-02 09:05] VITALS: PULSE 67; O2SAT 94
--- NOTE | 2025-04-02 09:29 | S_PTH ---
PATIENT: Shimon Patterson LOC: [id number] U#:[id number] AGE/SX: 80/M ROOM: 306 RE03/31/[address]: Catracho Mayer MD : 1945 BED: 01 DIS: 04/03/2025 SPEC #: [id number] RECD: 04/02/25 10:32 STATUS: JEANIE REWei #: [id number] MANA: 04/02/25 09:[address]: Siddharth Rodriguez DEPT: [facility] Surgical RECD BY: Brianne Mccullough ENTERED: 04/02/25 10:32 SP TYPE: Surgical OTHR DR: Nir Gustafson PAHALEY Drake MD Tina A. Winter, KENYETTA Tissues: A - Lymph Node Biopsy Procedures: Unstained Slides Hematoxylin and Eosin Stain Gross and Microscopic Level 4
[2025-04-02] MEDS: CHOLECALCIFEROL (VITAMIN D3) 125 MCG (5,000 UNITS) TABLET 250 MCG PO (10:44)
[2025-04-02] MEDS: TAMSULOSIN HCL 0.4 MG CAPSULE PO (10:45)
[2025-04-02] MEDS: FLUTICASONE PROPIONATE 0.05% NA SPR 16 GM BTL (*BKC) 2 SPRAY NASAL (10:45)
[2025-04-02] MEDS: DOCUSATE SODIUM 100 MG CAPSULE PO ×2 (10:45→20:09)
[2025-04-02] MEDS: ASCORBIC ACID 500 MG TABLET 1000 MG PO (10:45)
[2025-04-02] MEDS: buPROPion HCL XL (24 HR) 150 MG TABCR PO (10:46)
[2025-04-02 14:00] VITALS: BP 132/70; PULSE 70; RESP 16; TEMP 36.7; O2SAT 94
[2025-04-02 20:15] VITALS: BP 133/72; PULSE 75; RESP 20; TEMP 35.9; O2SAT 96
[2025-04-03 05:30] VITALS: BP 166/70; PULSE 75; RESP 18; TEMP 36.2; O2SAT 97
--- NOTE | 2025-04-03 06:54 | CY_PTH ---
PATIENT: Shimon Patterson LOC: [id number] U#:[id number] AGE/SX: 80/M ROOM: 306 RE03/31/[address]: Catracho Mayer MD : 1945 BED: 01 DIS: 04/03/2025 SPEC #: [id number] RECD: 04/03/25 07:03 STATUS: JEANIE REWei #: [id number] MANA: 04/03/25 06:[address]: Siddharth Rodriguez DEPT: [facility] Cytology RECD BY: Brianne Mccullough ENTERED: 04/03/25 07:04 SP TYPE: Cytology OTHR DR: Nir Gustafson, PAHALEY Drake MD Tina A. Winter, KENYETTA Tissues: A - Flow Procedures: Flow Cytometry
[2025-04-03 08:09] LABS: Hematocrit 32.3 % (42.0-52.0); Hemoglobin 10.4 g/dL (14.0-18.0); Immature Granulocyte Percent A 0.2 % (0-0.5); Lymphocytes Absolute Auto 13.23 K/mm3 (0.9-3.2); Mean Corpuscular HGB Conc 32.2 g/dl (32-36); Mean Corpuscular Hemoglobin 33.8 pg (26-34); Mean Corpuscular Volume 104.9 fl (80-100); Nucleated Red Blood Cells Absolute Auto 0.000 K/mm3 (0.0-0.012); Nucleated Red Blood Cells Perc 0.0 % (0.0-0.2); Platelet Count Result 174 k/mm3 (150-375); Red Blood Count 3.08 M/mm3 (4.6-6.20); White Blood Count 16.7 K/mm3 (4.5-10.0)
[2025-04-03 08:24] LABS: Alanine Aminotransferase 16 U/L (6-50); Albumin Level 3.6 g/dL (3.5-5.1); Alkaline Phosphatase 74 U/L (38-126); Anion Gap 7 mmol/L (4-12); Aspartate Amino Transferase 33 U/L (17-59); Bilirubin,Total 0.9 mg/dL (0.2-1.3); Blood Urea Nitrogen 18 mg/dL (9-20); Calcium 8.8 mg/dL (8.4-10.2); Carbon Dioxide 24 mmol/L (22-30); Chloride 106 mmol/L (98-107); Estimated CRCL calculation 47 ml/min; Estimated Glomerular Filt Rate > 60; Glucose 95 mg/dL (65-110); Potassium 4.1 mmol/L (3.4-5.0); Sodium 137 mmol/L (137-145); Total Protein 6.6 g/dL (6.3-8.2)
[2025-04-03] MEDS: DOCUSATE SODIUM 100 MG CAPSULE PO (08:47)
[2025-04-03] MEDS: ASCORBIC ACID 500 MG TABLET 1000 MG PO (08:47)
[2025-04-03] MEDS: buPROPion HCL XL (24 HR) 150 MG TABCR PO (08:47)
[2025-04-03] MEDS: TAMSULOSIN HCL 0.4 MG CAPSULE PO (08:47)
[2025-04-03] MEDS: CHOLECALCIFEROL (VITAMIN D3) 125 MCG (5,000 UNITS) TABLET 250 MCG PO (08:47)
[2025-04-03] MEDS: FLUTICASONE PROPIONATE 0.05% NA SPR 16 GM BTL (*BKC) 2 SPRAY NASAL (08:48)
--- NOTE | 2025-04-03 10:19 | P.DS_ITS ---
DS: Admitting Diagnosis Discharge Date 04/03/2025 Admitting Diagnosis Intra-abdominal lymphadenopathy, Fecal impaction DS: Discharge Diagnosis Discharge Diagnosis (1) Intra-abdominal lymphadenopathy: Code(s): R59.0 - Localized enlarged lymph nodes Status: Acute Assessment and Plan: * CT abdomen/pelvis: * Lymphadenopathy detailed above concerning for lymphoma. Tissue sampling recommended. * There are multiple enlarged lymph nodes in the gastrohepatic ligament, peripancreatic space and retroperitoneum the largest in the left retroperitoneum para-aortic space 3.5 x 3 cm. There are enlarged lymph nodes within the mesentery the largest 4 x 6 cm. * Fecal impaction with mild probable proctitis * Oncology consulted * Ultrasound-guided lymph node biopsy today (2) Fecal impaction: Code(s): K56.41 - Fecal impaction Status: Acute Assessment and Plan: * CT showed fecal impaction with mild probable proctitis * manually disimpacted in the ED on 03/31 * S/p manual disimpaction and soap suds enema in ED with multiple bowel movements. Pain resolved. * S/p IV fluids * Continue Miralax, senna (3) Leukocytosis: Qualifiers: Leukocytosis type: lymphocytosis Qualified Code(s): D72.820 - Lymphocytosis (symptomatic) Code(s): D72.829 - Elevated white blood cell count, unspecified Status: Acute Assessment and Plan: * WBC 20.7 upon admission * could be related to suspected lymphoma/hematological malignancy * UA showed no indication of UTI * CXR no acute process * CT of the abd/pelvis showed possible proctitis, likely related to acute fecal impaction * WBC improved. Do not feel antibiotics warranted at this time. * Monitor CBC * Oncology/hematology consulted * WBC 16.9, down from 17.1 yesterday (4) Type 2 diabetes mellitus with diabetic polyneuropathy, without long-term current use of insulin: Code(s): E11.42 - Type 2 diabetes mellitus with diabetic polyneuropathy Status: Chronic Assessment and Plan: * Hemoglobin a1c 6.2 * Stable, glucose 103 upon admission * Hypoglycemia protocol * POC blood glucose ACHS * No home medications listed * Continue low dose SSI * A1C 6.5% in 2023, update (5) Hypertension: Qualifiers: Hypertension type: primary hypertension Qualified Code(s): I10 - Essential (primary) hypertension Code(s): I10 - Essential (primary) hypertension Status: Chronic Assessment and Plan: * Chronic, currently 135/75, stable. * Not currently on a daily antihypertensive * Monitor (6) Benign prostatic hyperplasia: Qualifiers: Lower urinary tract symptom detail: urinary hesitancy Lower urinary tract symptom presence: symptoms present Qualified Code(s): N40.1 - Benign prostatic hyperplasia with lower urinary tract symptoms; R39.11 - Hesitancy of micturition Code(s): N40.0 - Benign prostatic hyperplasia without lower urinary tract symptoms Status: Chronic Assessment and Plan: * History of BPH, currently reporting difficulty urinating but sometimes has near urinary incontinence. difficulty urinating likely exacerbated by fecal impaction. * Start Flomax, monitor toleration * Bladder scan PRN Plan DVT Prophylaxis: Hold Eliquis for biopsy, SCDs Code Status: Full code DS: Summary Hospital Course Reason for hospitalization: Abdominal Pain Hospital Course: 80 y/o M with PMH of dementia, DVT/PE on chronic anticoagulation, BPH, hypertension, GERD, anxiety, depression, and diabetes presents here with abdominal pain. The patient presents here from a local [facility] care facility on 03/31 for further evaluation of abdominal pain. He reports onset of lower abdominal pain on Monday, 03/28. He describes the abdominal pain as crampy, nonradiating, constant, no aggravating factors, and alleviated by urination. He reports associated abdominal bloating, difficulty urinating, belching, and constipation. Last BM 4-5 days ago. He reports he has still been able to pass gas intermittently. He denies associated nausea, vomiting, fever, chills, or body aches. He has been taking MiraLax daily without improvement. He has a past medical history significant for bowel obstructions (last occurrence around 1 year ago, treated conservatively), denies previous abdominal surgery. His ED workup was significant for a fecal impaction and significant lymphadenopathy on CT. He denies previous history of lymphoma, cancer, night sweats, weight loss, fatigue, or itchy skin. Initial VS at presentation: 99.3? F, HR 88, R 20, 135/75, and 96% on RA. ED workup showed: WBC 20.7, hemoglobin 11.3 (12.0 in 2023), creatinine 1.3 and GFR 53, lactic 0.8, lipase 19, he no transaminitis. UA showed a high specific gravity, otherwise unremarkable. CT of the abdomen/pelvis showed lymphadenopathy detailed above concerning for lymphoma, and fecal impaction with mild probable proctitis. CT scan was obtained which showed fecal impaction with mild probable proctitis, likely secondary to the fecal impaction. He was manually disimpacted in the ED on 03/31 and given a soapsuds enema and was able to start producing bowel movements and since then abdominal pain has improved and he has not had any issues with passage of stool. Patient does have a history of BPH and was reporting difficulty urinating, however this is likely secondary to presenting fecal impaction. UA showed no indicators of infection. CT abdomen/pelvis showed lymphadenopathy concerning for lymphoma, with recommendation for tissue sampling. Oncology was consulted regarding intra- abdominal lymphadenopathy. On an presenting exam, patient did have left-sided neck lymphadenopathy with left axillary lymphadenopathy, labs consistent with anemia and elevated WBC count. Agree that these findings likely consistent with lymphoma. Oncology agrees likely best next step would be ultrasound biopsy of the lymph node. This was obtained on 04/02. 04/03, patient did have leukocy tosis, was improving and likely secondary to possible underlying lymphoma. No other clinical signs of infection: UA and chest x-ray showing no acute findings. No major electrolyte abnormalities. Vital signs have remained stable throughout visit. Patient otherwise hemodynamically stable and can follow-up in the outpatient setting with Oncology regarding the results of his lymph node biopsy. Patient is amenable to this plan. Plan for discharge back to [facility] in [place] at this time. Status at Discharge Functional status at discharge: independent ambulation Overall status at discharge: patient is back to baseline Time Spent with Patient Time attestation: Total time spent providing and/or coordinating discharge services: 33 Exam Narrative: General: NAD Eyes: EOMI ENT: neck supple Cardiovascular: Regular rate and rhythm Respiratory: Clear to auscultation, respirations even and unlabored on RA Gastrointestinal: Soft, non tender, bowel sounds active Genitourinary: no suprapubic tenderness Musculoskeletal: No edema Skin: warm, dry Neuro: Alert. Psych: Mood appropriate Const: General: comfortable and no acute distress Other: , male, elderly, nontoxic appearance HENMT: Face/Nose/Sinus: Normal nares present Mouth: Yes moist mucous membranes Eyes: General: appearance normal, both eyes and all related structures Sclera: sclerae normal Pupils: Equal, round and reactive pupils present EOM: EOMs intact bilaterally Resp: Effort & Inspection: normal respiratory effort Auscultation: clear to auscultation bilaterally Cardio: Rate: regular rate Rhythm: regular rhythm Other: S1-S2 present without murmur, rub, ectopy GI: Other: Abdomen rounded but soft, minimal distension. Hyperactive bowel sounds in all quadrants. No tenderness on exam. Skin: General skin exam: normal color and no rashes or lesions noted W ounds: no wounds Neuro: Cranial nerves: Yes Equal, round and reactive pupils present Speech: normal speech Motor exam (neuro): 5/5 motor strength present throughout Sensory Exam: normal sensation Other: A&O x4 Extrem: General: normal to inspection Psych: Mental Status: mental status grossly normal Affect: normal affect Other: Good insight and judgment, pleasant DS: Data Data Completed and Pending Completed studies during hospitalization: Pending at discharge 04/01/25 18:41 Surgical [PTH] Routine Pending studies at discharge: Pending at discharge 04/02/25 09:29 Surgical [PTH] Routine Labs on day of discharge: Labs from last 24 hours 04/03/25 04/03/25 04/02/25 08:30 06:54 20:16 WBC 16.7 H RBC 3.08 L Hgb 10.4 L Hct 32.3 L MCV 104.9 H MCH 33.8 MCHC 32.2 RDW 13.9 Plt Count 174 MPV 9.7 Immature Gran % (Auto) 0.2 Neut % (Auto) 12.0 L Lymph % (Auto) 79.4 H [place] % (Auto) 7.7 Eos % (Auto) 0.5 Baso % (Auto) 0.2 Lymph # (Auto) 13.23 H [place] # (Auto) 1.3 H Eos # (Auto) 0.1 Baso # (Auto) 0.0 Abs Immat Gran (auto) 0.03 Absolute Neuts (auto) 2.0 Absolute Nucleated RBC 0.000 Nucleated RBC % 0.0 Sodium 137 Potassium 4.1 Chloride 106 Carbon Dioxide 24 Anion Gap 7 BUN 18 Creatinine 1.15 Estim Creat Clear Calc 47 Estimated GFR > 60 Glucose 95 POC Capillary Glucose 86 125 H Calcium 8.8 Total Bilirubin 0.9 AST 33 ALT 16 Alkaline Phosphatase 74 Total Protein 6.6 Albumin 3.6 04/02/25 04/02/25 16:10 11:20 WBC RBC Hgb Hct MCV MCH MCHC RDW Plt Count MPV Immature Gran % (Auto) Neut % (Auto) Lymph % (Auto) [place] % (Auto) Eos % (Auto) Baso % (Auto) Lymph # (Auto) [place] # (Auto) Eos # (Auto) Baso # (Auto) Abs Immat Gran (auto) Absolute Neuts (auto) Absolute Nucleated RBC Nucleated RBC % Sodium Potassium Chloride Carbon Dioxide Anion Gap BUN Creatinine Estim Creat Clear Calc Estimated GFR Glucose POC Capillary Glucose 134 H 93 Calcium Total Bilirubin AST ALT Alkaline Phosphatase Total Protein Albumin Discharge Plan Discharge Attending physician on discharge: Catracho Mayer Consulting providers: Liliana Perez; Siddharth Rodriguez; Nir Gustafson Discharging Clinician: Nir Gustafson Anticipated Discharge Date/Time: 04/03/25 10:01 Patient Disposition: NH Skilled Nursing/Asst Living Activity: unlimited Diet: regular Discharge Instructions: Discharge disposition: [facility] Take medications as prescribed Monitor blood pressures Take caution while standing, rising, or moving Change positions slowly taking a break between each position change If you standing feel dizzy sit back down and take a break Encouraged to continue with yearly vaccinations Return to the emergency department if he developed sudden shortness of breath, chest pain, nausea, vomiting, upset stomach or intractable diarrhea Return to the emergency department if you develop fever greater than 101.5 Follow-up with the primary care physician within 1-2 weeks Follow-up with Dr. Rodriguez with hematology/oncology. Call their office today to schedule an appointment for next week. Thank you for [facility] for your healthcare needs Patient Instructions: Constipation (DC), Lymphadenopathy (GEN) Patient Language: Yoruba Stand Alone Forms: General Discharge Information Follow-up/Referrals: Siddharth Rodriguez MD [Physician, Hematology] Emilie Palomares APRN [Primary Care Provider, Internal Medicine] Discharge Medications: Continued Eliquis 5 mg tablet 5 mg PO Q12H polyethylene glycol 3350 [Miralax] 17 gram powder in packet 17 g PO DAILY Qty: 100 1RF ascorbic acid (vitamin C) 1,000 mg capsule 1 g PO DAILY cholecalciferol (vitamin D3) 250 mcg (10,000 unit) capsule 250 mcg PO DAILY fluticasone propionate 50 mcg/actuation spray,suspension 2 spray NASAL DAILY Qty: 16 5RF Rx Instructions: patient only do it as needed ketoconazole 2 % shampoo See Rx Instructions .ROUTE .COMPLEX Qty: 120 0RF Dose Instruction: APPLY TOPICALLY TWICE A WEEK Rx Instructions: APPLY TOPICALLY TWICE A WEEK bupropion HCl 150 mg tablet extended release 24 hr 150 mg PO QAM Qty: 30 0RF Date of admission: 03/31/25 17:21 Primary Care Provider: Emilie Palomares Admitting Provider: Jay Cm Attending physician on admission: Jay Cm Condition: Stable Quality VTE Prophylaxis VTE prophylaxis: mechanical ordered
--- NOTE | 2025-04-03 11:56 | PC.NURSE ---
call to pt's to notify her of pt's pending discharge, she states she has a doctor's appt this afternoon and will be by after that
== END 2025-04-03 15:44 ==
LOC: ANHED 15:38 → ANH3MEDSUR 04-01 06:52
PROVIDERS: Internal Medicine Hematology & Oncology; Physician Assistant; Student in an Organized Health Care Education/Training Program; Admitting Provider Internal Medicine; Emergency Provider Emergency Medicine; PCP Nurse Practitioner Family; Visit Provider General Practice
DX: R59.0 Localized enlarged lymph nodes (principal); K56.41 Fecal impaction; D72.820 Lymphocytosis (symptomatic); R14.0 Abdominal distension (gaseous); R14.2 Eructation; N40.1 Benign prostatic hyperplasia with lower urinary tract symptoms; R39.11 Hesitancy of micturition; K21.9 Gastro-esophageal reflux disease without esophagitis; D64.9 Anemia, unspecified; K76.0 Fatty (change of) liver, not elsewhere classified; I10 Essential (primary) hypertension; E11.42 Type 2 diabetes mellitus with diabetic polyneuropathy; G31.83 Neurocognitive disorder with Lewy bodies; F02.80 Dementia in other diseases classified elsewhere, unspecified severity, without behavioral disturbance, psychotic disturbance, mood disturbance, and anxiety; F41.8 Other specified anxiety disorders; M19.90 Unspecified osteoarthritis, unspecified site; Z79.01 Long term (current) use of anticoagulants; Z79.51 Long term (current) use of inhaled steroids; Z95.828 Presence of other vascular implants and grafts; Z87.891 Personal history of nicotine dependence; Z87.19 Personal history of other diseases of the digestive system; Z86.711 Personal history of pulmonary embolism; Z86.0100 Personal history of colon polyps, unspecified; Z86.718 Personal history of other venous thrombosis and embolism; Z80.8 Family history of malignant neoplasm of other organs or systems; Z82.3 Family history of stroke; Z82.49 Family history of ischemic heart disease and other diseases of the circulatory system
CPT/HCPCS: 36415; 38505; 71046; 74177; 76942; 80048; 80053; 81003; 82565; 82607; 82728; 82746; 82948; 83036; 83540; 83550; 83605; 83615; 83690; 85025; 85610; 85730; 88108; 88184; 88185; 88305; 99285; A9270; G0378; J7120; Q9967

== ENCOUNTER 2025-04-24 13:01 | Outpatient (CLI) | payer OTHER, SELFPAY ==
--- OUTSIDE RECORDS SUMMARY | 2024-07-16 08:00 | XMS_ITS ---
Author Organization [facility] [employer] [facility] Address [address] [place] [address] [address] Care Team Providers Care Character Impersonator Name Role Phone Lv Steele MD Primary Care Provider Makenna DeL eon [phone] REASON FOR VISIT pt requested appt online Social History Sex Assigned At : Social History Observation Description Sex Assigned At Male Encounters Encounter Location Date Provider Diagnosis [facility] [place] [address] [address] 07/16/2024 Makenna Bhardwaj Plan Of Treatment Next Appt Details Provider Name:Makenna Bhardwaj , 05/06/2025 01:15:00 PM, [facility] [address], [address], [address], Progress Notes * JUANRosa Elena MARY ANNE FDOB:1945 (80 yo M)Acc No.[id number]:07/16/2024 Patient: MARY ANNE CASTRO Provider: CHARITY SIMON :1945 A ge:79 Y S ex:Male Date:07/16/2024 [facility] [facility] Pcp:Lv Steele MD Subjective: * Chief Complaints: * P t requested appt online Billing Information: * Procedure Codes: * Electronic signature of CHARITY Davila on 04/24/2025 at 02:49 PM CDT Sign off status: Pending * Provider: CHARITY SIMON Date: 0 07/16/2024 Generated for Lindsey read/Patricia on: 1 02:49 PM CDT
--- NOTE | ~2025-04-24 | PE_ITS ---
EXAMINATION: PET skull to mid thigh DATE: 04/24/2025 15:27 INDICATION: Small lymphocytic lymphoma/chronic lymphocytic leukemia. TECHNIQUE: Blood glucose level was 99 mg/dL. 10.274 mCi of 18-fluorodeoxyglucose (18-FDG) was administered i.v. Low dose computed tomography (CT) images were acquired from the base of the brain to the proximal thighs for attenuation correction and anatomic localization. Automated exposure control was employed. Dose-length product (DLP) was 1068 mGy-cm. Positron emission tomography (PET) images were acquired in the same distribution. COMPARISON: CT abdomen and pelvis 03/31/2025 FINDINGS: Head/neck: There is bilateral internal jugular, submandibular, and spinal accessory chain lymphadenopathy with increased activity. Chest: The lungs demonstrate mild atelectasis. No pleural effusion. There is a 4 mm nodule in left upper lobe, likely benign. A calcified left lung nodule and calcified left hilar and mediastinal lymph nodes are consistent with old granulomatous disease. No pleural effusion. The heart size is normal. No pericardial effusion. There is a small sliding hiatal hernia. There is bilateral axillary lymphadenopathy with increased activity. Abdomen/pelvis/proximal thighs: The liver, gallbladder, spleen, pancreas, adrenal glands, and kidneys are normal. There is a filter in the inferior vena cava. The prostate is mildly enlarged. There are no dilated loops of bowel. The appendix is normal. There is extensive lymphadenopathy including periportal, mesenteric, left para-aortic, aortocaval, and bilateral external iliac chains with increased activity. For example, a 4.2 x 3.1 cm aortocaval node demonstrates maximum SUV of 3.5. Normal liver maximum SUV is 3.2. Normal mediastinal maximum SUV is 3.4. There is no ascites. There is no osseous mal ignancy. IMPRESSION: 1. Widespread lymphadenopathy in the neck, chest, abdomen, and pelvis with increased activity (Deauville score of 4), consistent with lymphoma. Reviewed, dictated and finalized at location E. IMPRESSION: 1. Widespread lymphadenopathy in the neck, chest, abdomen, and pelvis with incr eased activity (Deauville score of 4), consistent with lymphoma.
--- OUTSIDE RECORDS SUMMARY | 2025-04-24 14:48 | XMS_ITS | Patient Health Record ---
Author Organization [facility] [employer] Address [address] [place] [address] Care Team Providers Care Under Sheriff Name Role Phone Ramin Jeff Primary Care Provider Bruce Amyur Unavailable [phone] Reason For Referral No Information Medications Medication [...] take 2 Tablet 100MG ORAL 01/2507/10/1899 Active Burnside 5-325mg take 1 tablet by ora ORAL 06/18/2013 Active Flomax 0.4mg TAKE ONE CAPSULE BY ORAL 11/17/2014 0 Active Lisinopril 10mg TAKE ONE TABLET BY M ORAL 02/18/20 15 Active Astepro 0.15 %(205.5 mcg) spray 1 spray 5MC NASAL 08/02/2012 Active Coumadin 4mg TAKE ONE TABLET BY M ORAL 05/05/2015 Active Immunizations Vaccine Route Administration Date Status Comme nts Influenza (split), 3 yrs and above IM Intramuscular 01/14/2016 Administered Pneumococcal polysaccharide PPV23 (Pneumovax 23) Unknown 04/26/2012 Administered Pneumococcal polysaccharide PPV23 (Pneumovax 23) IM Intramuscular 01/14/2016 Administered Tdap (Boostrix, Adacel) Unknown 08/11/2014 Administered zzInfluenza, High dose, injectable, preservative free (Fluzone) Unknown 05/19/2014 Administered Problems Problem Type SNOMED Code ICD Code Onset Dates Problem Status W/U Status Risk Notes Problem Type II diabetes mellitus without complication (627246701) Diabetes mellitus without mention of complication, type II or unspecified type, not stated as uncontrolled (250.00) 0 confirmed Santos Problem Vitamin B-complex deficiency (392218935) Other B-complex deficiencies (266.2) 0 confirmed Santos Problem Hyperlipidemia (08333167) Other and unspecified hyperlipidemia (272.4) 0 confirmed Santos Problem Obesity (911896151) Obesity, unspecified (278.00) 0 confirmed Santos Problem Depressive disorder (23000990) Depressive disorder, not elsewhere classified (311) 0 confirmed Santos Problem Carpal tunnel syndrome (84820925) Carpal tunnel syndrome (354.0) 0 confirmed Santos Problem Lesion of ulnar nerve (869887061) Lesion of ulnar nerve (354.2) 0 confirmed Santos Problem Essential hypertension (26052727) Unspecified essential hypertension (401.9) 0 confirmed Santos Problem Pulmonary embolism with pulmonary infarction (9607807452082) Other pulmonary embolism and infarction (415.19) 0 confirmed Santos Problem Thromboembolism of vein (166640416) Venous embolism and thrombosis of unspecified deep vessels of lower extremity (453.40) 0 confirmed Santos Problem Lumbago (526263614) Lumbago (724.2) 0 confirmed Santos Problem Malaise and fatigue (678134494) Other malaise and fatigue (780.79) 0 confirmed Santos Problem Disturbance of skin sensation (941156985) Disturbance of skin sensation (782.0) 0 confirmed Santos Problem Chest pain (75873477) Chest pain, unspecified (786.50) 0 confirmed Santos Problem Needs influenza immunization (146985094) Need for prophylactic vaccination and inoculation, Influenza (V04.81) 0 confirmed Santos Problem Requires vaccination (025657472) Need for prophylactic vaccination and inoculation against unspecified single disease (V05.9) 0 confirmed Santos Problem Respiratory disease screening (935179374) Screening for other and unspecified respiratory condition (V81.4) 0 confirmed Santos Problem Saddle embolus of pulmonary artery (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) 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) 0 confirmed Santos Problem Type II diabetes mellitus without complication (998045889) Type 2 diabetes mellitus without complications (E11.9) 0 confirmed Santos Problem Hyperlipidemia (65528373) Hyperlipidemia, unspecified (E78.5) 0 confirmed Santos Problem Essential hypertension (36737483) Essential (primary) hypertension (I10) 0 confirmed Santos Problem Saddle embolus of pulmonary artery (611354334200728) Saddle embolus of pulmonary artery without acute cor pulmonale (I26.92) 0 confirmed Santos Problem Requires vaccination (844800334) An Encounter for immunization (Z23) 0 confirmed Santos Plan Of Treatment No Information Insurance Providers Payer Name Payer Address Payer Phone Subscriber Number Group Number Insured Name Patient Relationship to Insured Coverage Start Date Coverage End Date [employer] [place] [address] [address] [place] [address] [id number] Bares, Shimon Self - patient is the insured [facility] [address] [place] [id number] Bares, Shimon Self - patient is the insured [facility] [address] [place] [address] [id number] Bares, Shimon Self - patient is the insured [facility] [address] [place] [address] [id number] Bares, Shimon Self - patient is the insured
--- OUTSIDE RECORDS SUMMARY | 2025-04-24 14:48 | XMS_ITS | Clinical Summary ---
Author Organization [facility] Address [address] [place] [address] Care Team Providers Care [place] Stayer Machine Operator Name Role Phone Unavailable Primary Care Provider Unavailabl e Allergies No known active allergies Medications Eliquis 5 mg tablet Take 5 mg by mouth 2 times daily. 02/04/2025 Active buPROPion HCL (WELLBUTRIN XL) 150 mg Extended Release 24 hour tablet Take 150 mg by mouth daily in the morning. Active zanubrutinib 80 mg capsule Take 2 Capsules (160 mg) by mouth 2 times daily. 120 Capsule 3 04/15/2025 Active Active Problems No known active problems Encounters Date Type Department Care Team Description 04/22/2025 External Device Data [facility] Provider, Abstract 04/22/2025 External Device Data [facility] Provider, Abstract 04/22/2025 External Device Data [facility] Provider, Abstract 04/16/2025 Specialty Pharmacy [facility] [address] [place] [address] [place] [id number] Luba Rao, PHARMACIST 04/15/2025 4:00 PM CDT Office Visit [facility] - [place] [address] [facility] [address] [place] [id number] Siddharth Rodriguez MD CLL (chronic lymphocytic leukemia) (Primary Dx) from Last 3 Months Family History Medical History Relation Name Comments No Known Problems Child 1 No Known Problems Child 2 Throat Cancer Father Heart Attack Mother Heart Disease Mother Heart Disease Sister 1 No Known Problems Sister 2 Heart Disease Sister 3 Relation Name Status Comments Child 1 Alive Child 2 Alive Father Mother Sister 1 Sister 2 Alive Sister 3 Alive Social History Tobacco Use Types Packs/Day Years Used Date Smoking Tobacco: Former Cigarettes Q uit: 04/15/2021 Cigars Smokeless Tobacco: Never Tobacco Cessation:Counseling Given: Not Answered Alcohol Use Standard Drinks/Week Comments Not Currently 0 (1 standard drink = 0.6 oz pur e alcohol) Has not drank for 4 years Sex and Gender Information Value Date Recorded Sex Assigned at Not on file Legal Sex Male 4:05 PM CDT Gender Identity Not on file Sexual Orientation Not on file Last Filed Vital Signs Vital Sign Reading Time Taken Comments Blood Pressure 122/72 04/15/2025 3:08 PM CDT Pulse 72 04/15/2025 3:08 PM CDT Temperature 36.9 C (98.4 F) 04/15/2025 3:08 PM CDT Respiratory Rate 16 04/15/2025 3:08 PM CDT Oxygen Saturation 98% 04/15/2025 3:08 PM CDT Inhaled Oxygen Concentration - - Weight 82.6 kg (182 lb 3.2 oz) 04/15/2025 3:08 P M CDT Height 177.8 cm (5' 10) 04/15/2025 3:08 PM CDT Body Mass Index 26.14 04/15/2025 3:08 PM CDT Plan of Treatment Upcoming Encounters Date Type Department Care Team (Late st Contact Info) Description 05/01/2025 4:30 PM CDT Telephone Check Up [facility] - [place] [address] [facility] [address] [place] [address] Siddharth Rodriguez MD [address] [facility] [address] [place] [address] Health Maintenance Due Date Last Done Comments DTAP/TDAP/TD VACCINES (1 - Tdap) 1964 PNEUMOCOCCAL VACCINE 50+ YEARS (1 of 2 - PCV) 03/05/19 62 ZOSTER VACCINE (1 of 2) 1964 RSV VACCINE (60+ or ) (1 - 1-dose 75+ series) 2018 Medicare Advantage [place]) Prev entative Visit/Annual Wellness Visit 07/10/2024 INFLUENZA VACCINE (#1) 2025 Insurance [employer] Medicare Part D
--- OUTSIDE RECORDS SUMMARY | 2025-04-24 14:48 | XMS_ITS | Encounter Summary ---
Author Organization [facility] Address [address] [place] [address] Care Team Providers Care Rail Operations Controller Name Role Phone Unavailable Primary Care Provider Unavailabl e Encounter Details Date Type Department Care Team (Late st Contact Info) Description 04/22/2025 External Device Data [facility] Provider, Abstract NO ADDRESS ON FILE Social History Tobacco Use Types Packs/Day Years Used Date Smoking Tobacco: Former Cigarettes Q uit: 04/15/2021 Cigars Smokeless Tobacco: Never Alcohol Use Standard Drinks/Week Comments Not Currently 0 (1 standard drink = 0.6 oz pur e alcohol) Has not drank for 4 years Sex and Gender Information Value Date Recorded Sex Assigned at Not on file Legal Sex Male 4:05 PM CDT Gender Identity Not on file Sexual Orientation Not on file documented as of this encounter Plan of Treatment Upcoming Encounters Date Type Department Care Team (Late st Contact Info) Description 05/01/2025 4:30 PM CDT Telephone Check Up [facility] On[facility] and Hematology - [place] [address] [place] [address] [facility] [address] [place] [address] Siddharth Rodriguez MD [address] [facility] [address] [place] [address] documented as of this encounter Visit Diagnoses Not on filedocumented in this encounter
--- OUTSIDE RECORDS SUMMARY | 2025-04-24 14:48 | XMS_ITS ---
Author Organization [facility] Address [address] [facility] [place] [address] Care Team Providers Care Livestock Nutritionist Name Role Phone Unavailable Primary Care Provider Unavailabl e Chronic Lymphocytic Leukemia Status:Enrolled (Active) Start date:04/16/2025 Enrollment date:04/16/2025 Enrollment reason:Identified from a specialty prescription Current support & services provided:Clinical Management, Refill Management, Benefits and PA Management, Financial Assistance Linked medications:zanubrutinib (Active) Continued Care and Services Coordination
--- OUTSIDE RECORDS SUMMARY | 2025-04-24 14:49 | XMS_ITS | Patient Health Record ---
Author Organization [facility] [employer] [facility] Address [address] [place] [address] Care Team Providers Care Broacher Name Role Phone Lv Steele MD Primary Care Provider Makenna De Leon Unavailable [phone] Allergies No Known Allergies Reason For Referral [...] Aerosol Powder Breath Activated Inhalation *Reorder from xkoto for eRx and Interaction Alerts* 09/28/2023 Active [...] decision-maker No Do you have Power of Cementer Hand for Health or Medi olivia? Yes Do you have a power of commercial attorney for health? Yes Do you have power of commercial attorney for Medical ? Yes If yes, [...] Master's degree (e.g., MA, MS, Suze, MEd, INSTRUCTIONAL SUPPORT ASSISTANT, [employer])Are you currently employed?: No (Notes: retired)Who [...] Risk Notes Problem Moderate recurrent major depression (16829943) Major depressive disorder, recurrent, moderate (F33.1) 4 Active confirmed Problem Generalized anxiety disorder (84902688) Generalized anxiety disorder (F41.1) 4 Active confirmed Problem Insomnia disorder related to another mental disorder (12258334) Insomnia due to other mental disorder (F51.05) 4 Active confirmed Problem Amnesia (22243317) Other amnesia (R41.3) 4 Active confirmed Problem Mild recurrent major depression (93585504) MDD (major depressive disorder), recurrent episode, mild (F33.0) Active confirmed Vital Signs Heart Rate 86 /min 01/21/2025 Respiratory Rate 16 /min 10/22/2024 Height-cm 180.34 cm 01/21/2025 Blood pressure diastolic 86 mm Hg 01/21/2025 Weight-kg 86.18 kg 01/21/2025 Height 71.00 in 01/21/2025 Blood pressure systolic 150 mm Hg 01/21/2025 Weight 190 lbs 01/21/2025 BMI 26.5 kg/m2 01/21/2025 Encounters Encounter Location Date Provider Diagnosis [address] [address] 05/07/2024 Makenna Thery Generalized anxiety disorder F41.1 ; MDD (major depressive disorder), recurrent episode, mild F33.0 ; Insomnia due to other mental disorder F51.05 and Other amnesia R41.[address] [address] 07/22/2024 Makenna Thery Generalized anxiety disorder F41.1 ; MDD (major depressive disorder), recurrent episode, mild F33.0 ; Insomnia due to other mental disorder F51.05 ; Other amnesia R41.3 and Hypertension, unspecified type 401.[address] [address] 10/22/2024 Makenna Thery Generalized anxiety disorder F41.1 ; MDD (major depressive disorder), recurrent episode, mild F33.0 ; Insomnia due to other mental disorder F51.05 ; Other amnesia R41.3 ; Encounter for screening for depression Z13.31 ; Encounter for screening for cardiovascular disorders Z13.6 and Dietary counseling and surveillance Z71.[address] [address] 01/21/2025 Makenna Thery Generalized anxiety disorder F41.1 ; MDD (major depressive disorder), recurrent episode, mild F33.0 ; Insomnia due to other mental disorder F51.05 ; Other amnesia R41.3 ; Encounter for screening for depression Z13.31 ; Encounter for screening for cardiovascular disorders Z13.6 and Dietary counseling and surveillance Z71.3 [facility] [address] [address] 05/27/2024 Makennatiffany Bhardwaj Assessments Encounter Date Diagnosis (ICD Code) Assessment Notes Treatment Notes Treatment Clinical Notes Section Notes 05/07/2024 Generalized anxiety disorder (ICD-10 - F41.1) [...] change or add additional rx going to [facility] and plans to attend 3 x week [...] 150 mg daily at night- stopped at [facility] 06/02 reported on Wellbutrin XL 150 mg daily in am- reported doing better lives at [facility] obtain hospital records and labs [facility] education on compliance with medications and communication [...] daily, reported stopped at hospital 06/02 hx [facility] and plans to attend 3 x week and working on memory and mood, [facility] in [facility] reviewed 4. Insomnia disorder related to another mental disorder -stable 10/22/2024 Generalized anxiety disorder (ICD-10 - F41.1) Learning About Generalized Anxiety Disorder material was published, Generalized Anxiety Disorder: Care Instructions material was published, Learning About Anxiety Disorders material was published 1. recurrent major depression - Wellbutrin XL 150 mg daily in am- reported doing better lives at [facility] education on compliance with medications and communication [...] SLUMS= 21 12/22/22 SLUMS= 25 05/07/24 hx [facility] and plans to attend 3 x [...] in am- reported doing better lives at [facility] education on compliance with medications and communication [...] 25 05/07/24 01/21/25 SLUMS = 21 hx [facility] and plans to attend 3 x week and working on memory and mood, [facility] reviewed 4. Insomnia disorder related to another mental disorder -stable 10/22/2024 Insomnia due to other mental disorder (ICD-10 - F51.05) 1. recurrent major depression - Wellbutrin XL 150 mg daily in am- reported doing better lives at [facility] education on compliance with medications and communication [...] SLUMS= 21 12/22/22 SLUMS= 25 05/07/24 hx [facility] and plans to attend 3 x [...] 150 mg daily at night- stopped at [facility] 06/02 reported on Wellbutrin XL 150 mg daily in am- reported doing better lives at [facility] obtain hospital records and labs [facility] education on compliance with medications and communication [...] daily, reported stopped at hospital 06/02 hx [facility] and plans to attend 3 x [...] change or add additional rx going to [facility] and plans to attend 3 x week [...] in am- reported doing better lives at [facility] education on compliance with medications and communication [...] SLUMS= 21 12/22/22 SLUMS= 25 05/07/24 hx [facility] and plans to attend 3 x [...] in am- reported doing better lives at [facility] education on compliance with medications and communication [...] 25 05/07/24 01/21/25 SLUMS = 21 hx [facility] and plans to attend 3 x week and working on memory and mood, [facility] reviewed 4. Insomnia disorder related to another mental disorder -stable 07/22/2024 Insomnia due to other mental disorder (ICD-10 - F51.05) 1. recurrent major depression - patient reported off Sertraline 150 mg daily at night- stopped at [facility] 06/02 reported on Wellbutrin XL 150 mg daily in am- reported doing better lives at [facility] obtain hospital records and labs [facility] education on compliance with medications and communication [...] daily, reported stopped at hospital 06/02 hx [facility] and plans to attend 3 x [...] change or add additional rx going to [facility] and plans to attend 3 x week and working on memory and mood, [facility] 4. Insomnia disorder related to another mental disorder -stable 10/22/2024 Other amnesia (ICD-10 - R41.3) 1. recurrent major depression - Wellbutrin XL 150 mg daily in am- reported doing better lives at [facility] education on compliance with medications and communication [...] SLUMS= 21 12/22/22 SLUMS= 25 05/07/24 hx [facility] and plans to attend 3 x week and working on memory and mood, [facility] reviewed 4. Insomnia disorder related to another mental disorder -stable 01/21/2025 Insomnia due to other mental disorder (ICD-10 - F51.05) 1. recurrent major depression - Wellbutrin XL 150 mg daily in am- reported doing better lives at [facility] education on compliance with medications and communication [...] 25 05/07/24 01/21/25 SLUMS = 21 hx [facility] and plans to attend 3 x week and working on memory and mood, [facility] in [facility] reviewed 4. Insomnia disorder related to another mental disorder -stable 01/21/2025 Other amnesia (ICD-10 - R41.3) 1. recurrent major depression - Wellbutrin XL 150 mg daily in am- reported doing better lives at [facility] education on compliance with medications and communication [...] 25 05/07/24 01/21/25 SLUMS = 21 hx [facility] and plans to attend 3 x [...] change or add additional rx going to [facility] and plans to attend 3 x week and working on memory and mood, [facility] 4. Insomnia disorder related to another mental disorder -stable 07/22/2024 Other amnesia (ICD-10 - R41.3) 1. recurrent major depression - patient reported off Sertraline 150 mg daily at night- stopped at [facility] 06/02 reported on Wellbutrin XL 150 mg daily in am- reported doing better lives at [facility] obtain hospital records and labs [facility] education on compliance with medications and communication [...] daily, reported stopped at hospital 06/02 hx [facility] and plans to attend 3 x week and working on memory and mood, [facility] records in [facility] reviewed 4. Insomnia disorder related to another mental disorder -stable 07/22/2024 Hypertension, unspecified type (ICD9-CM - 401.9) 1. recurrent major depression - patient reported off Sertraline 150 mg daily at night- stopped at [facility] 06/02 reported on Wellbutrin XL 150 mg daily in am- reported doing better lives at [facility] obtain hospital records and labs [facility] education on compliance with medications and communication [...] daily, reported stopped at hospital 06/02 hx [facility] and plans to attend 3 x week and working on memory and mood, [facility] in [facility] reviewed 4. Insomnia disorder related to another mental disorder -stable 01/21/2025 Encounter for screening for depression (ICD-10 - Z13.31) 1. recurrent major depression - Wellbutrin XL 150 mg daily in am- reported doing better lives at [facility] education on compliance with medications and communication [...] 25 05/07/24 01/21/25 SLUMS = 21 hx [facility] and plans to attend 3 x week and working on memory and mood, [facility] records in [facility] reviewed 4. Insomnia disorder related to another mental disorder -stable 10/22/2024 Encounter for screening for depression (ICD-10 - Z13.31) 1. recurrent major depression - Wellbutrin XL 150 mg daily in am- reported doing better lives at [facility] education on compliance with medications and communication [...] SLUMS= 21 12/22/22 SLUMS= 25 05/07/24 hx [facility] and plans to attend 3 x week and working on memory and mood, [facility] records in [facility] reviewed 4. Insomnia disorder related to another mental disorder -stable 01/21/2025 Encounter for screening for cardiovascular disorders (ICD-10 - Z13.6) 1. recurrent major depression - Wellbutrin XL 150 mg daily in am- reported doing better lives at [facility] education on compliance with medications and communication [...] 25 05/07/24 01/21/25 SLUMS = 21 hx [facility] and plans to attend 3 x week and working on memory and mood, [facility] records in [facility] reviewed 4. Insomnia disorder related to another mental disorder -stable 10/22/2024 Encounter for screening for cardiovascular disorders (ICD-10 - Z13.6) 1. recurrent major depression - Wellbutrin XL 150 mg daily in am- reported doing better lives at [facility] education on compliance with medications and communication [...] SLUMS= 21 12/22/22 SLUMS= 25 05/07/24 hx [facility] and plans to attend 3 x week and working on memory and mood, [facility] in [facility] reviewed 4. Insomnia disorder related to another mental disorder -stable 10/22/2024 Dietary counseling and surveillance (ICD-10 - Z71.3) 1. recurrent major depression - Wellbutrin XL 150 mg daily in am- reported doing better lives at [facility] education on compliance with medications and communication [...] = 19 05/27/21 SLUMS= 21 12/22/22 SLUMS= 05/07/24 hx [facility] and plans to attend 3 x week and working on memory and mood, [facility] records in [facility] reviewed 4. Insomnia disorder related to another mental disorder -stable 01/21/2025 Dietary counseling and surveillance (ICD-10 - Z71.3) 1. recurrent major depression - Wellbutrin XL 150 mg daily in am- reported doing better lives at [facility] education on compliance with medications and communication [...] 25 05/07/24 01/21/25 SLUMS = 21 hx [facility] and plans to attend 3 x week and working on memory and mood, [facility] records in [facility] reviewed 4. Insomnia disorder related to another mental disorder -stable 05/07/2024 Other referral to the local chapter or national office of the Alzheimer's Association (3-268-014-390 0; http://www.alz .org), the Alzheimer's Disease Education and Referral Center (ADEAR) (2-007-905-438 0; http://www.glenn .nih.gov/Alzhe ed/), 1. recurrent major depression - Sertraline 150 [...] change or add additional rx going to [facility] and plans to attend 3 x week and working on memory and mood, [facility] 4. Insomnia disorder related to another mental disorder -stable Plan Of Treatment Next Appt Details Provider Name:Makenna Bhardwaj , 05/06/2025 01:15:00 PM, [facility] [facility] [address], [facility] [address], [place], [address], Insurance Providers Payer Name Payer Address Payer Phone Subscriber Number Group Number Insured Name Patient Relationship to Insured Coverage Start Date Coverage End Date [employer] Medicare Replacement/ Advantage - [employer]mo [address] [place] [phone] [id number] MARY ANNE VALERO Self - patient is the insured Medical (General) History Medical History History ICD Code Problems: Abnormal weight loss Anger reaction Generalized anxiety disorder Hypersomnia Insomnia disorder related to another men gloria disorder Memory impairment Moderate recurrent major depression Weight loss , ECT 2018 Surgical History Surgery Date(Month/Year) Transplantation of nerve (53691016) Implantation of umbrella into vena cava (06323358)
== END 2025-04-24 13:02 | disposition home or self-care (01) ==
PROVIDERS: PCP Nurse Practitioner Family; Visit Provider Internal Medicine Hematology & Oncology
DX: C91.10 Chronic lymphocytic leukemia of B-cell type not having achieved remission (principal)
CPT/HCPCS: 78815; A9552